=== PATIENT | female | born 1970 | race Caucasian/White ===

== ENCOUNTER 2017-09-09 23:16 | Emergency (ER) | payer MEDICAID ==
[~2017-09-09] VITALS: Ht 167.6 cm; Wt 60.0 kg
[~2017-09-09 23:16] MED LIST: BACDS PO; CEPH-357 PO; NO HOME MEDS; PHEN-873 PO
[2017-09-10] MEDS ORDERED: ondansetron/PF 4mg/2ml inj IV ONE (00:20)
[2017-09-10] MEDS ORDERED: morphine 4 MG/ML inj SYRINge IV ONE (00:20)
[2017-09-10 00:33] LABS: CLARITY,URINE CLOUDY (Clear); COLOR,URINE YELLOW (Yellow); GLUCOSE, URINE NEGATIVE (Neg); KETONES,URINE TRACE mg/dl (Neg); LEUKOCYTE ESTERASE ,URINE TRACE (Neg); NITRITES, URINE POSITIVE (Neg); OCCULT BLOOD,URINE SMALL (Neg); PROTEIN,URINE TRACE mg/dl (Neg)
[2017-09-10 00:35] LABS: UA COLLECTION TYPE CLN CATCH MIDSTREAM
[2017-09-10 00:41] LABS: BACTERIA,URINE 4+ /HPF (Neg); SQUAMOUS EPITHELIAL CELL,UR FEW /LPF (FEW)
[2017-09-10 00:42] LABS: MUCUS STRANDS MODERATE /LPF (Neg)
[2017-09-10 00:44] LABS: URINE AMPHETAMINE SCREEN POSITIVE (Neg); URINE BARBITUATE SCREEN NEGATIVE (Neg); URINE BENZODIAZEPINES SCREEN NEGATIVE (Neg); URINE CANNABINOID SCREEN NEGATIVE (Neg); URINE COCAINE SCREEN NEGATIVE (Neg); URINE METHADONE SCREEN NEGATIVE (Neg); URINE OPIATE SCREEN NEGATIVE (Neg); URINE PHENCYCLIDINE SCREEN NEGATIVE (Neg)
[2017-09-10 01:00] VITALS: BP 137/108
[2017-09-10 01:25] LABS: BASOPHILS # (AUTO) 0.1 X10'3 (0-0.2); BASOPHILS % (AUTO) 0.9 % (0-1); EOSINOPHILS # (AUTO) 0.1 X10'3 (0-0.9); EOSINOPHILS % (AUTO) 0.9 % (0-6); HEMATOCRIT 45.3 % (35.0-45.0); HEMOGLOBIN 14.5 g/dl (12.0-16.0); LYMPHOCYTES # (AUTO) 1.7 X10'3 (1.1-4.8); LYMPHOCYTES % (AUTO) 20.5 % (21-51); MEAN CORPUSCULAR HEMOGLOBIN 31.2 PG (27.0-31.0); MEAN CORPUSCULAR HGB CONC 32.1 % (33.0-36.5); MEAN CORPUSCULAR VOLUME 97.2 FL (78-98); MEAN PLATELET VOLUME 8.8 FL (7.4-10.4); MONOCYTES # (AUTO) 0.6 X10'3 (0-0.9); MONOCYTES % (AUTO) 7.7 % (2-12); NEUTROPHILS # (AUTO) 5.9 X10'3 (1.8-7.7); PLATELET COUNT 172 X10'3 (140-440); RED BLOOD COUNT 4.66 X10'6 (4.20-5.60); RED CELL DISTRIBUTION WIDTH 13.3 % (11.5-14.5); WHITE BLOOD COUNT 8.4 X10'3 (4.5-11.0)
[2017-09-10 01:36] LABS: INR 1.1 INR; PARTIAL THROMBOPLASTIN TIME 25 SECONDS (22-32); PROTHROMBIN TIME 11.4 SECONDS (9.0-12.0)
[2017-09-10 01:44] LABS: ALANINE AMINOTRANSFERASE 141 U/L (12-78); ALBUMIN 3.5 G/DL (3.4-5.0); ALBUMIN/GLOBULIN RATIO 0.8 (1.1-1.5); ALKALINE PHOSPHATASE 150 IU/L (46-116); ANION GAP 13 (8-16); ASPARTATE AMINO TRANSFERASE 214 U/L (10-37); BILIRUBIN,TOTAL 1.4 MG/DL (0.1-1.0); BLOOD UREA NITROGEN 16 MG/DL (7-18); BUN/CREATININE RATIO 16.8 (6.6-38.0); CALCIUM 9.5 MG/DL (8.5-10.1); CHLORIDE 104 MMOL/L (99-107); CREATINE KINASE 556 U/L (26-192); CREATININE 0.95 MG/DL (0.40-0.90); ETHANOL 0.103 GM/DL (0.0-0.010); GLUCOSE 146 MG/DL (70-104); LIPASE 329 U/L (73-393); SODIUM 146 MMOL/L (135-145); TOTAL CARBON DIOXIDE 28.9 MMOL/L (24-32); TROPONIN I < 0.04 NG/ML (0.0-0.05); eGFR 63 ML/MIN
[2017-09-10 01:54] LABS: POTASSIUM 2.3 MMOL/L (3.5-5.1)
[2017-09-10] MEDS ORDERED: potassium Cl 20 mEq/100mL bag IV ONE (01:55)
[2017-09-10] MEDS ORDERED: potassium Cl 10 mEq/100mL bag IV SCH (02:05)
[2017-09-10] MEDS ORDERED: CefTRIAXone/D5W-Rocephin 1gm 50 ML IV ONE (02:10)
[2017-09-10] MEDS ORDERED: LIDOcaine 1.5% w/epinephrine 1:200,000 5ml ampul IJ ONE (02:55)
[2017-09-10] MEDS ORDERED: lidocaine 1.5% w/epinephrine 1:200,000 10ml vial MPF IJ ONE (02:55)
[2017-09-10] MEDS ORDERED: potass W/LIDOcaine 10mEq/100ml 100 ML IV SCH (03:15)
== END 2017-09-10 04:51 | disposition short-term general hospital (02) ==
LOC: ER 23:17
DX: S02.32XA Fracture of orbital floor, left side, initial encounter for closed fracture (principal); S02.40FA Zygomatic fracture, left side, initial encounter for closed fracture; S02.40DA Maxillary fracture, left side, initial encounter for closed fracture; S01.412A Laceration without foreign body of left cheek and temporomandibular area, initial encounter; E87.6 Hypokalemia; F10.129 Alcohol abuse with intoxication, unspecified; Z86.14 Personal history of Methicillin resistant Staphylococcus aureus infection; Z88.6 Allergy status to analgesic agent; Z88.8 Allergy status to other drugs, medicaments and biological substances; F15.10 Other stimulant abuse, uncomplicated; Z56.0 Unemployment, unspecified; Y04.2XXA Assault by strike against or bumped into by another person, initial encounter
CPT/HCPCS: 12011; 36415; 70450; 70486; 71045; 72125; 80053; 80305; 80320; 81001; 82550; 83690; 84484; 85025; 85610; 85730; 87077; 87088; 87186; 96365; 96366; 96368; 96375; 99285; J0696; J2270; J2405; J3490; J3480

== ENCOUNTER 2019-05-18 14:41 | Emergency (ER) | payer MEDICAID ==
[~2019-05-18] VITALS: Ht 154.9 cm; Wt 72.7 kg
[~2019-05-18 14:41] MED LIST changes: +PHEN-786 PO; -PHEN-873 PO
== END 2019-05-18 16:33 | disposition home or self-care (01) ==
LOC: ER 14:42
DX: S31.41XD Laceration without foreign body of vagina and vulva, subsequent encounter (principal); F15.90 Other stimulant use, unspecified, uncomplicated; F10.99 Alcohol use, unspecified with unspecified alcohol-induced disorder; Z90.710 Acquired absence of both cervix and uterus; Z86.14 Personal history of Methicillin resistant Staphylococcus aureus infection; Z56.0 Unemployment, unspecified; Z88.6 Allergy status to analgesic agent; Z88.8 Allergy status to other drugs, medicaments and biological substances; Z79.899 Other long term (current) drug therapy; W19.XXXD Unspecified fall, subsequent encounter; Y90.9 Presence of alcohol in blood, level not specified
CPT/HCPCS: 99281; 99283

== ENCOUNTER 2020-04-17 15:51 | Emergency (ER) | payer MEDICAID ==
[~2020-04-17] VITALS: Ht 160 cm; Wt 85.9 kg
[2020-04-17 16:50] LABS: BASOPHILS # (AUTO) 0.1 X10'3 (0-0.2); BASOPHILS % (AUTO) 1.6 % (0-1); EOSINOPHILS # (AUTO) 0.1 X10'3 (0-0.9); EOSINOPHILS % (AUTO) 1.8 % (0-6); HEMOGLOBIN 8.3 g/dl (12.0-16.0); LYMPHOCYTES # (AUTO) 1.7 X10'3 (1.1-4.8); LYMPHOCYTES % (AUTO) 28.8 % (21-51); MEAN CORPUSCULAR HEMOGLOBIN 30.2 PG (27.0-31.0); MEAN CORPUSCULAR HGB CONC 31.9 g/dL (33.0-36.5); MEAN CORPUSCULAR VOLUME 94.7 FL (78-98); MEAN PLATELET VOLUME 8.7 FL (7.4-10.4); MONOCYTES # (AUTO) 0.6 X10'3 (0-0.9); MONOCYTES % (AUTO) 10.7 % (2-12); NEUTROPHILS # (AUTO) 3.4 X10'3 (1.8-7.7); NEUTROPHILS % (AUTO) 57.1 % (42-75); PLATELET COUNT 120 X10'3 (140-440); RED BLOOD COUNT 2.75 X10'6 (4.20-5.60); RED CELL DISTRIBUTION WIDTH 17.4 % (11.5-14.5); WHITE BLOOD COUNT 5.9 X10'3 (4.5-11.0)
[2020-04-17 16:59] LABS: PARTIAL THROMBOPLASTIN TIME 29 SECONDS (22-32)
[2020-04-17 17:00] LABS: ALANINE AMINOTRANSFERASE 62 U/L (12-78); ALBUMIN 2.3 G/DL (3.4-5.0); ALKALINE PHOSPHATASE 188 IU/L (46-116); ANION GAP 6 (8-16); ASPARTATE AMINO TRANSFERASE 102 U/L (10-37); BLOOD UREA NITROGEN 7 MG/DL (7-18); BUN/CREATININE RATIO 6.9 (6.6-38.0); CHLORIDE 104 MMOL/L (99-107); CREATININE 1.01 MG/DL (0.40-0.90); POTASSIUM 3.2 MMOL/L (3.5-5.1); SODIUM 142 MMOL/L (135-145); TOTAL CARBON DIOXIDE 32.5 MMOL/L (24-32); eGFR 58 ML/MIN
[2020-04-17 17:07] LABS: AMYLASE 34 U/L (25-115); LIPASE 317 U/L (73-393)
[2020-04-17 17:08] LABS: ALBUMIN/GLOBULIN RATIO 0.5 (1.1-1.5); GLUCOSE 108 MG/DL (70-104); TOTAL PROTEIN 7.2 G/DL (6.4-8.2)
[2020-04-17 17:41] LABS: URINE HCG NEGATIVE (NEG)
[2020-04-17 17:43] LABS: CLARITY,URINE CLOUDY (Clear); GLUCOSE, URINE NEGATIVE (Neg); KETONES,URINE NEGATIVE (Neg); LEUKOCYTE ESTERASE ,URINE SMALL (Neg); NITRITES, URINE POSITIVE (Neg); OCCULT BLOOD,URINE NEGATIVE (Neg); PROTEIN,URINE NEGATIVE (Neg); UROBILINOGEN,URINE >=8.0 E.U/dL (0.2-1.0)
[2020-04-17 17:53] LABS: COLOR,URINE DARK YELLOW (Yellow); UA COLLECTION TYPE CLN CATCH MIDSTREAM
[2020-04-17 17:56] LABS: BACTERIA,URINE 4+ /HPF (Neg); RBC,URINE 0-2 /HPF (0-2); SQUAMOUS EPITHELIAL CELL,UR MODERATE /LPF (FEW); WBC,URINE 50-100 /HPF (0-4)
[2020-04-17 17:57] LABS: WBC CLUMPS,URINE MANY /HPF (NEGATIVE)
[2020-04-17 18:17] LABS: MAGNESIUM 1.7 MG/DL (1.5-2.4)
[2020-04-17] MEDS ORDERED: CefTRIAXone 1000mg IM Kit (w/lidocaine diluent) IM ONE (18:20)
[2020-04-17 18:35] LABS: PHOSPHORUS 3.1 MG/DL (2.3-4.5)
[2020-04-17] MEDS ORDERED: CIPR-230 PO (20:09)
[2020-04-17] MEDS ORDERED: POTA20TA19 PO (20:12)
[2020-04-17 20:33] VITALS: BP 134/78
== END 2020-04-17 20:39 | disposition home or self-care (01) ==
LOC: ER 15:52
DX: K70.31 Alcoholic cirrhosis of liver with ascites (principal); N39.0 Urinary tract infection, site not specified; K74.60 Unspecified cirrhosis of liver; F15.10 Other stimulant abuse, uncomplicated; Z56.0 Unemployment, unspecified; Z87.448 Personal history of other diseases of urinary system
CPT/HCPCS: 36415; 71045; 76700; 80053; 81001; 81025; 82150; 83690; 83735; 83880; 84100; 84484; 85025; 85610; 85730; 87077; 87088; 87186; 93005; 96372; 99285; J0696; 74176

== ENCOUNTER 2020-05-02 07:53 | Day surgery (SDC) | payer MEDICAID ==
[~2020-05-02] VITALS: Ht 160 cm; Wt 88.7 kg
[2020-05-02] MEDS ORDERED: albumin 25% 100mL bottle x 1 IV PRN (08:15)
[2020-05-02] MEDS ORDERED: SPIR25TA5 PO (08:20)
[2020-05-02 08:33] VITALS: BP 138/80
== END 2020-05-02 10:01 | disposition home or self-care (01) ==
LOC: SSTAY O 07:53
PROVIDERS: ATTEND Radiology Diagnostic Radiology
DX: R18.8 Other ascites (principal); K74.60 Unspecified cirrhosis of liver; Z72.89 Other problems related to lifestyle; Z90.710 Acquired absence of both cervix and uterus; F15.90 Other stimulant use, unspecified, uncomplicated; Z88.8 Allergy status to other drugs, medicaments and biological substances; Z79.899 Other long term (current) drug therapy
CPT/HCPCS: 76705

== ENCOUNTER 2020-08-07 16:32 | Inpatient (IN) | payer MEDICAID ==
[~2020-08-07] VITALS: Ht 157.5 cm; Wt 75.9 kg
[~2020-08-07 16:32] MED LIST changes: -BACDS PO; -PHEN-786 PO; +SPIR25TA5 PO
[2020-08-07] MEDS ORDERED: normal saline 1000ML IV soln IV ONE (17:25)
[2020-08-07] MEDS ORDERED: vancomycin/NS 1 GM ADD-VANTAGE 250 ML IV ONE (17:25)
[2020-08-07] MEDS ORDERED: piperacillin/tazo 3.375gm/50ml 50 ML IV ONE (17:25)
[2020-08-07 17:42] LABS: BASOPHILS % (AUTO) 0.4 % (0-1); EOSINOPHILS # (AUTO) 0.1 X10'3 (0-0.9); EOSINOPHILS % (AUTO) 1.4 % (0-6); HEMATOCRIT 28.7 % (35.0-45.0); HEMOGLOBIN 8.8 g/dl (12.0-16.0); LYMPHOCYTES # (AUTO) 1.1 X10'3 (1.1-4.8); LYMPHOCYTES % (AUTO) 13.7 % (21-51); MEAN CORPUSCULAR HGB CONC 30.8 g/dL (33.0-36.5); MEAN CORPUSCULAR VOLUME 84.5 FL (78-98); MEAN PLATELET VOLUME 9.3 FL (7.4-10.4); MONOCYTES # (AUTO) 0.8 X10'3 (0-0.9); MONOCYTES % (AUTO) 9.7 % (2-12); NEUTROPHILS # (AUTO) 6.2 X10'3 (1.8-7.7); NEUTROPHILS % (AUTO) 74.8 % (42-75); PLATELET COUNT 112 X10'3 (140-440); RED BLOOD COUNT 3.39 X10'6 (4.20-5.60); RED CELL DISTRIBUTION WIDTH 22.5 % (11.5-14.5); WHITE BLOOD COUNT 8.3 X10'3 (4.5-11.0)
[2020-08-07 17:58] LABS: ALANINE AMINOTRANSFERASE 39 U/L (12-78); ALBUMIN/GLOBULIN RATIO 0.4 (1.1-1.5); ALKALINE PHOSPHATASE 119 IU/L (46-116); ANION GAP 11 (8-16); ASPARTATE AMINO TRANSFERASE 77 U/L (10-37); BLOOD UREA NITROGEN 21 MG/DL (7-18); BUN/CREATININE RATIO 17.2 (6.6-38.0); C-REACTIVE PROTEIN 12.38 MG/DL (0.0-0.5); CALCIUM 8.1 MG/DL (8.5-10.1); CHLORIDE 98 MMOL/L (99-107); CREATININE 1.22 MG/DL (0.40-0.90); ETHANOL 0.185 GM/DL (0.0-0.010); MAGNESIUM 1.4 MG/DL (1.5-2.4); SODIUM 135 MMOL/L (135-145); TOTAL CARBON DIOXIDE 26.4 MMOL/L (24-32); TOTAL PROTEIN 6.8 G/DL (6.4-8.2); eGFR 46 ML/MIN
[2020-08-07 18:05] LABS: GLUCOSE 148 MG/DL (70-104); POTASSIUM 2.4 MMOL/L (3.5-5.1)
[2020-08-07] MEDS ORDERED: potassium Cl 20 mEq SR tablet PO STA (18:05)
[2020-08-07] MEDS ORDERED: potassium Cl 10 mEq/100mL bag IV ONE (18:05)
[2020-08-07] MEDS ORDERED: iohexol 300mg/ml 100ml inj. ONE (18:14)
--- NOTE | 2020-08-07 18:15 | NUR ---
Pt taken to CT
[2020-08-07 18:29] LABS: ANISOCYTOSIS 3+; PLATELET ESTIMATE DECREASED; TOTAL CELLS COUNTED 100
[2020-08-07 18:30] LABS: HYPOCHROMASIA 1+; POLYCHROMASIA FEW; SCHISTOCYTES FEW
[2020-08-07 18:31] LABS: BURR CELLS FEW
[2020-08-07 18:53] LABS: GLUCOSE, URINE NEGATIVE (Neg); KETONES,URINE TRACE mg/dl (Neg); LEUKOCYTE ESTERASE ,URINE NEGATIVE (Neg); NITRITES, URINE NEGATIVE (Neg); OCCULT BLOOD,URINE NEGATIVE (Neg); PH,URINE 5.5 (4.8-8.0); PROTEIN,URINE NEGATIVE (Neg)
[2020-08-07 18:59] LABS: CLARITY,URINE SLIGHTLY CLOUDY (Clear); COLOR,URINE DARK YELLOW (Yellow); UA COLLECTION TYPE CLN CATCH MIDSTREAM
[2020-08-07 19:05] LABS: BACTERIA,URINE FEW /HPF (Neg); RBC,URINE NONE SEEN /HPF (0-2); SQUAMOUS EPITHELIAL CELL,UR MANY /LPF (FEW); WBC,URINE 0-4 /HPF (0-4)
[2020-08-07 19:06] LABS: TRANSITIONAL EPI CELLS,URINE FEW /HPF
[2020-08-07 19:07] LABS: CELLULAR CAST 0-4 /LPF (NEGATIVE); URINE AMPHETAMINE SCREEN POSITIVE (Neg); URINE BARBITUATE SCREEN NEGATIVE (Neg); URINE BENZODIAZEPINES SCREEN NEGATIVE (Neg); URINE CANNABINOID SCREEN NEGATIVE (Neg); URINE COCAINE SCREEN NEGATIVE (Neg); URINE METHADONE SCREEN NEGATIVE (Neg); URINE OPIATE SCREEN NEGATIVE (Neg); URINE PHENCYCLIDINE SCREEN NEGATIVE (Neg)
[2020-08-07] MEDS ORDERED: morphine 4 MG/ML inj SYRINge IV ONE (20:10)
[2020-08-07] MEDS ORDERED: thiamine 100mg/ml 2ml inj. IV ONE (20:25)
[2020-08-07] MEDS ORDERED: magnesium 4gm in 100ml NS 100 ML IV PRN (20:25)
[2020-08-07] MEDS ORDERED: potassium Cl 40MEQ/1/2NS 520ml 520 ML IV PRN ×2 (20:25)
[2020-08-07] MEDS ORDERED: mag hydrox/Alum hydrox/simeth 30ml oral suspension PO PRN (20:25)
[2020-08-07] MEDS ORDERED: dextrose 50%-water 50ml dispensing syringe IV PRN (20:25)
[2020-08-07] MEDS ORDERED: bisacodyl 10mg suppository rectal RC PRN (20:25)
[2020-08-07] MEDS ORDERED: haloperidol 5mg tablet PO PRN (20:25)
[2020-08-07] MEDS ORDERED: magnesium 2GM in 50ml NS 50 ML IV PRN (20:25)
[2020-08-07] MEDS ORDERED: magnesium hydroxide 30ml (MOM) UD suspension PO PRN (20:25)
[2020-08-07] MEDS ORDERED: ondansetron/PF 4mg/2ml inj IV PRN (20:25)
[2020-08-07] MEDS ORDERED: DOPamine 400mg/D5W 250ml 250 ML IV SCH ×2 (20:35→20:38)
[2020-08-07 20:57] LABS: HEMOGLOBIN A1C 4.5 % (4.5-6.2)
[2020-08-07 21:05] LABS: LIPASE 334 U/L (73-393)
[2020-08-07 21:06] LABS: PHOSPHORUS 1.1 MG/DL (2.3-4.5)
[2020-08-07] MEDS: potassium Cl 20 mEq SR tablet PO PRN (22:32)
[2020-08-08] MEDS: piperacillin/tazo 3.375gm/50ml 50 ML IV SCH ×3 (02:33→18:27)
[2020-08-08 03:07] LABS: BASOPHILS # (AUTO) 0.1 X10'3 (0-0.2); BASOPHILS % (AUTO) 0.6 % (0-1); EOSINOPHILS % (AUTO) 0.3 % (0-6); HEMOGLOBIN 8.5 g/dl (12.0-16.0); MEAN CORPUSCULAR HEMOGLOBIN 26.2 PG (27.0-31.0); MEAN CORPUSCULAR HGB CONC 31.4 g/dL (33.0-36.5); MEAN CORPUSCULAR VOLUME 83.4 FL (78-98); MEAN PLATELET VOLUME 9.7 FL (7.4-10.4); MONOCYTES % (AUTO) 11.9 % (2-12); NEUTROPHILS # (AUTO) 6.3 X10'3 (1.8-7.7); NEUTROPHILS % (AUTO) 75.2 % (42-75); PLATELET COUNT 101 X10'3 (140-440); RED BLOOD COUNT 3.23 X10'6 (4.20-5.60); RED CELL DISTRIBUTION WIDTH 22.1 % (11.5-14.5); WHITE BLOOD COUNT 8.4 X10'3 (4.5-11.0)
[2020-08-08 03:16] LABS: ALANINE AMINOTRANSFERASE 37 U/L (12-78); ALBUMIN 1.9 G/DL (3.4-5.0); ALBUMIN/GLOBULIN RATIO 0.4 (1.1-1.5); ALKALINE PHOSPHATASE 121 IU/L (46-116); ANION GAP 5 (8-16); ASPARTATE AMINO TRANSFERASE 74 U/L (10-37); BLOOD UREA NITROGEN 18 MG/DL (7-18); BUN/CREATININE RATIO 17.6 (6.6-38.0); CALCIUM 7.4 MG/DL (8.5-10.1); CHLORIDE 102 MMOL/L (99-107); CREATININE 1.02 MG/DL (0.40-0.90); MAGNESIUM 1.2 MG/DL (1.5-2.4); SODIUM 135 MMOL/L (135-145); TOTAL CARBON DIOXIDE 28.2 MMOL/L (24-32); TOTAL PROTEIN 6.4 G/DL (6.4-8.2); eGFR 57 ML/MIN
[2020-08-08 03:18] LABS: GLUCOSE 120 MG/DL (70-104); POTASSIUM 2.9 MMOL/L (3.5-5.1)
[2020-08-08 05:26] LABS: ANISOCYTOSIS 3+; PLATELET ESTIMATE DECREASED
[2020-08-08 05:27] LABS: ELLIPTOCYTES FEW
[2020-08-08 08:00] VITALS: BP 142/96
[2020-08-08] MEDS: nicotine 21mg patch - 24 hr TD SCH (08:28)
[2020-08-08] MEDS: LORazepam 1 MG tablet PO PRN (08:28)
[2020-08-08] MEDS: vancomycin/NS 1 GM ADD-VANTAGE 250 ML IV SCH ×2 (08:28→19:08)
[2020-08-08] MEDS: potassium Cl 20 mEq SR tablet PO PRN ×3 (08:29→16:08)
[2020-08-08] MEDS: pantoprazole 40mg Tablet.DR PO SCH (08:29)
[2020-08-08] MEDS: magnesium Cl slow-release 64mg tablet PO PRN (08:29)
[2020-08-08] MEDS: K and/or MAG REPLACEMENT MC SCH (08:35)
--- NOTE | 2020-08-08 09:12 | NUR ---
Dr. Gifford at bedside with patient and nurse. New orders NS @100ml/hr, DC Dry tray and DC FR, Heart Healthy diet, and wound care consult. Will continue to monitor.
[2020-08-08] MEDS: normal saline 1000ml 1,000 ML IV SCH ×2 (09:15→19:09)
[2020-08-08 11:00] VITALS: BP 157/83
--- NOTE | 2020-08-08 13:06 | NUR ---
SUZIE BLAKE RM 5831P- lab called to report from blood cx, Gram + cocci,pairs,chains, from aerobic bottle
[2020-08-08 15:00] VITALS: BP 112/88
[2020-08-08 18:00] VITALS: BP 142/86
--- NOTE | 2020-08-08 18:14 | NUR ---
Patient in room PCU 3024. I have received report from Dash SANCHEZ and had the opportunity to ask questions and assume patient care.
[2020-08-08] MEDS ORDERED: vancomycin/NS 1 GM ADD-VANTAGE 250 ML IV SCH (19:00)
[2020-08-08] MEDS: lactobacillus rhamnosus 10,000 MMU CELLS/CAPSULE PO SCH (19:08)
[2020-08-08 22:00] VITALS: BP 143/86
[2020-08-09 02:00] VITALS: BP 141/86
[2020-08-09] MEDS: piperacillin/tazo 3.375gm/50ml 50 ML IV SCH ×3 (03:49→16:01)
[2020-08-09] MEDS: normal saline 1000ml 1,000 ML IV SCH ×2 (05:15→14:24)
--- NOTE | 2020-08-09 06:24 | NUR ---
Problems reprioritized. Patient report given, questions answered & plan of care reviewed with Candida SANCHEZ.
--- NOTE | 2020-08-09 06:38 | NUR ---
Patient in room U 3024. I have received report from Darrin SANCHEZ Traveler and had the opportunity to ask questions and assume patient care.
--- NOTE | 2020-08-09 06:38 | NUR ---
Patient in room PCU 3024. I have received report from DANIEL Clifford and had the opportunity to ask questions and assume patient care.
[2020-08-09 07:00] VITALS: BP 151/93
[2020-08-09] MEDS ORDERED: VANCOMYCIN LEVEL IV ONE (07:30)
[2020-08-09] MEDS: lactobacillus rhamnosus 10,000 MMU CELLS/CAPSULE PO SCH ×2 (07:52→20:00)
[2020-08-09] MEDS: pantoprazole 40mg Tablet.DR PO SCH (07:52)
[2020-08-09] MEDS: vancomycin/NS 1 GM ADD-VANTAGE 250 ML IV SCH (07:53)
[2020-08-09] MEDS: nicotine 21mg patch - 24 hr TD SCH (07:55)
[2020-08-09] MEDS: K and/or MAG REPLACEMENT MC SCH (08:00)
[2020-08-09 08:01] LABS: BASOPHILS # (AUTO) 0.1 X10'3 (0-0.2); BASOPHILS % (AUTO) 0.8 % (0-1); EOSINOPHILS # (AUTO) 0.2 X10'3 (0-0.9); EOSINOPHILS % (AUTO) 2.2 % (0-6); HEMATOCRIT 29.6 % (35.0-45.0); HEMOGLOBIN 9.2 g/dl (12.0-16.0); LYMPHOCYTES # (AUTO) 1.8 X10'3 (1.1-4.8); LYMPHOCYTES % (AUTO) 16.9 % (21-51); MEAN CORPUSCULAR HEMOGLOBIN 25.8 PG (27.0-31.0); MEAN CORPUSCULAR HGB CONC 31.2 g/dL (33.0-36.5); MEAN CORPUSCULAR VOLUME 82.8 FL (78-98); MEAN PLATELET VOLUME 9.2 FL (7.4-10.4); MONOCYTES # (AUTO) 1.8 X10'3 (0-0.9); NEUTROPHILS # (AUTO) 6.5 X10'3 (1.8-7.7); NEUTROPHILS % (AUTO) 63.1 % (42-75); PLATELET COUNT 119 X10'3 (140-440); RED BLOOD COUNT 3.58 X10'6 (4.20-5.60); RED CELL DISTRIBUTION WIDTH 22.3 % (11.5-14.5); WHITE BLOOD COUNT 10.4 X10'3 (4.5-11.0)
[2020-08-09 08:11] LABS: ALANINE AMINOTRANSFERASE 32 U/L (12-78); ALBUMIN 1.9 G/DL (3.4-5.0); ALBUMIN/GLOBULIN RATIO 0.4 (1.1-1.5); ALKALINE PHOSPHATASE 113 IU/L (46-116); ANION GAP 6 (8-16); ASPARTATE AMINO TRANSFERASE 59 U/L (10-37); BILIRUBIN,TOTAL 3.2 MG/DL (0.1-1.0); BLOOD UREA NITROGEN 13 MG/DL (7-18); BUN/CREATININE RATIO 15.3 (6.6-38.0); CALCIUM 7.3 MG/DL (8.5-10.1); CHLORIDE 103 MMOL/L (99-107); CREATININE 0.85 MG/DL (0.40-0.90); POTASSIUM 3.4 MMOL/L (3.5-5.1); SODIUM 137 MMOL/L (135-145); TOTAL CARBON DIOXIDE 28.1 MMOL/L (24-32); TOTAL PROTEIN 6.5 G/DL (6.4-8.2); eGFR 71 ML/MIN
[2020-08-09 08:12] LABS: GLUCOSE 96 MG/DL (70-104); MAGNESIUM 1.3 MG/DL (1.5-2.4); VANCOMYCIN,TROUGH 6.5 UG/ML (6.0-14.0)
[2020-08-09 08:54] LABS: ANISOCYTOSIS 3+; PLATELET ESTIMATE DECREASED; TOTAL CELLS COUNTED 100
[2020-08-09 08:55] LABS: ELLIPTOCYTES 1+; HYPOCHROMASIA 1+; POLYCHROMASIA 1+; TARGET CELLS 1+; TEAR DROP CELLS FEW
--- NOTE | 2020-08-09 10:16 | NUR ---
Dr. Gifford at bedside with pt and nurse. No PT at this time due to leg infection or SCDS. Will replace K, Mg per protocol, Repeat of two blood cultures. Will continue to monitor.
[2020-08-09] MEDS: magnesium Cl slow-release 64mg tablet PO PRN ×2 (10:33→14:23)
[2020-08-09] MEDS: potassium Cl 20 mEq SR tablet PO PRN ×2 (10:33→14:23)
[2020-08-09 11:00] VITALS: BP 135/83
--- NOTE | 2020-08-09 13:10 | NUR ---
Problems reprioritized. Patient report given, questions answered & plan of care reviewed with Vane SANCHEZ.
[2020-08-09] MEDS: LORazepam 1 MG tablet PO PRN (14:23)
[2020-08-09 15:09] VITALS: BP 126/76
[2020-08-09] MEDS: LORazepam 2 mg/ml vial IV PRN (16:13)
[2020-08-09 18:00] VITALS: BP 126/85
--- NOTE | 2020-08-09 18:17 | NUR ---
Patient in room PCU 3024. I have received report from Vane SANCHEZ and had the opportunity to ask questions and assume patient care.
[2020-08-09 22:00] VITALS: BP 129/78
[2020-08-10] MEDS: LORazepam 2 mg/ml vial IV PRN ×3 (00:41→12:22)
[2020-08-10] MEDS: normal saline 1000ml 1,000 ML IV SCH ×2 (00:42→12:25)
[2020-08-10] MEDS: ceFAZolin/D5W- 1GM premix 50 ML IV SCH ×4 (03:04→20:24)
--- NOTE | 2020-08-10 06:52 | NUR ---
Patient in room PCU 3024. I have received report from Darrin SANCHEZ and had the opportunity to ask questions and assume patient care.
[2020-08-10 07:00] VITALS: BP 129/84
[2020-08-10 07:28] LABS: BASOPHILS # (AUTO) 0.1 X10'3 (0-0.2); BASOPHILS % (AUTO) 1.3 % (0-1); EOSINOPHILS # (AUTO) 0.6 X10'3 (0-0.9); EOSINOPHILS % (AUTO) 7.6 % (0-6); HEMATOCRIT 27.1 % (35.0-45.0); HEMOGLOBIN 8.7 g/dl (12.0-16.0); LYMPHOCYTES # (AUTO) 1.5 X10'3 (1.1-4.8); LYMPHOCYTES % (AUTO) 19.1 % (21-51); MEAN CORPUSCULAR HEMOGLOBIN 26.3 PG (27.0-31.0); MEAN CORPUSCULAR HGB CONC 31.9 g/dL (33.0-36.5); MEAN CORPUSCULAR VOLUME 82.5 FL (78-98); MEAN PLATELET VOLUME 8.9 FL (7.4-10.4); MONOCYTES # (AUTO) 1.1 X10'3 (0-0.9); MONOCYTES % (AUTO) 14.5 % (2-12); NEUTROPHILS # (AUTO) 4.5 X10'3 (1.8-7.7); NEUTROPHILS % (AUTO) 57.5 % (42-75); PLATELET COUNT 107 X10'3 (140-440); RED BLOOD COUNT 3.29 X10'6 (4.20-5.60); RED CELL DISTRIBUTION WIDTH 21.8 % (11.5-14.5); WHITE BLOOD COUNT 7.9 X10'3 (4.5-11.0)
[2020-08-10 07:46] LABS: ALANINE AMINOTRANSFERASE 29 U/L (12-78); ALBUMIN 1.6 G/DL (3.4-5.0); ALBUMIN/GLOBULIN RATIO 0.4 (1.1-1.5); ALKALINE PHOSPHATASE 102 IU/L (46-116); ANION GAP 7 (8-16); ASPARTATE AMINO TRANSFERASE 54 U/L (10-37); BILIRUBIN,TOTAL 3.5 MG/DL (0.1-1.0); BLOOD UREA NITROGEN 11 MG/DL (7-18); BUN/CREATININE RATIO 15.7 (6.6-38.0); CALCIUM 7.2 MG/DL (8.5-10.1); CHLORIDE 106 MMOL/L (99-107); GLUCOSE 84 MG/DL (70-104); MAGNESIUM 1.4 MG/DL (1.5-2.4); POTASSIUM 3.3 MMOL/L (3.5-5.1); SODIUM 140 MMOL/L (135-145); TOTAL CARBON DIOXIDE 26.8 MMOL/L (24-32); TOTAL PROTEIN 5.8 G/DL (6.4-8.2); eGFR 88 ML/MIN
[2020-08-10 07:58] LABS: ANISOCYTOSIS 3+; MICROCYTOSIS 1+; PLATELET ESTIMATE DECREASED; POIKILOCYTOSIS FEW; POLYCHROMASIA FEW
[2020-08-10] MEDS: nicotine 21mg patch - 24 hr TD SCH (08:00)
[2020-08-10] MEDS: magnesium Cl slow-release 64mg tablet PO PRN ×2 (08:15→20:33)
[2020-08-10] MEDS: lactobacillus rhamnosus 10,000 MMU CELLS/CAPSULE PO SCH ×2 (08:15→20:33)
[2020-08-10] MEDS: potassium Cl 20 mEq SR tablet PO PRN (08:15)
[2020-08-10] MEDS: pantoprazole 40mg Tablet.DR PO SCH (08:16)
[2020-08-10] MEDS: K and/or MAG REPLACEMENT MC SCH (08:16)
[2020-08-10 08:40] LABS: HIV ANTIBODY 1&2 RAPID NON-REACTIVE (Neg)
--- NOTE | 2020-08-10 09:46 | NUR ---
Dr. Gifford at bedside with patient and nurse. Patient expressing need for more medications to be sedated or she wants to get HIGH (meth). Pt is requesting sister to come visit. No New orders at this time, legs are improving. MD projects home on Wed or Wednesday when infection is under control. Will continue to monitor.
[2020-08-10 11:00] VITALS: BP 121/79
--- NOTE | 2020-08-10 11:37 | NUR ---
Paged RT \ Re: Sneha Rowan, RM 2839L pt requesting treatment. RT was ordered, Thank you Candida SANCHEZ [phone]
--- NOTE | 2020-08-10 12:49 | NUR ---
Paged Dr. Gifford promotional table spacer PAGER ID: [phone] MESSAGE: Re: Sneha Jim RM 3020X. Pt combative, may I may Haldol to IM? Please ADVISE Candida SANCHEZ [id number] responded New order Haldol 5mg IM Q8
[2020-08-10] MEDS: haloperidol lactate 5mg/ml inj IM PRN (12:59)
--- NOTE | 2020-08-10 13:19 | NUR ---
Paged Dr. Gifford PAGER ID: [phone] MESSAGE: : Re: Sneha Jim RM 4084X. Pt appears having labored breathing and distended abd. May we get an ABG and RT? Please ADVISE Candida SANCHEZ [phone]
--- NOTE | 2020-08-10 13:51 | NUR ---
Dr. Gifford called in regards to page. New orders 60 NOW of Lasix and then 40 lasix BID, DC fluids, patients edema in all extremities. RT eval and ABG Stat. Will continue to monitor.
[2020-08-10] MEDS ORDERED: furosemide 10 MG/1 ML 10ml inj IV ONE (13:55)
[2020-08-10 14:16] LABS: ABG BASE EXCESS 2.7 mmol/L (-2.0-2.0); ABG HCO3 26.5 mmol/L (22.0-26.0); ABG PCO2 (T) 37.7 mmHg (32.0-45.0); ABG PO2 (T) 65.9 mmHg (75.0-100.0); ALLEN'S TEST POSITIVE; FCOHb 1.2 % (0.0-3.9); FMetHb 0.1 % (0.0-1.5); FO2Hb 91.8 % (94-97); TOTAL HEMOGLOBIN 9.8 G/dl (12.0-16.0)
--- NOTE | 2020-08-10 14:30 | NUR ---
Dr. Caldwell Regarding ABG PAGER ID: [phone] MESSAGE: Re: Sneha Rowan room 3024B. Patient ABG has resulted, RT has placed pt on 2 L NC. May we get a chest x-ray? Thank you, Mitra [phone]
[2020-08-10 15:00] VITALS: BP 115/67
[2020-08-10] MEDS ORDERED: magnesium 4gm in 100ml NS 100 ML IV PRN (15:40)
[2020-08-10] MEDS ORDERED: potassium Cl 40MEQ/1/2NS 520ml 520 ML IV PRN (15:40)
--- NOTE | 2020-08-10 17:36 | NUR ---
Paged Pharmacy due to patient sedative still and sleeping. Please send IV Potassium 40MEQ/520 NS for Pot level for 3.3 thank you!!!
--- NOTE | 2020-08-10 17:42 | NUR ---
Paged Dr. Gifford to advise PAGER ID: [phone] MESSAGE: Re: Sneha Rowan RM 6132E. FYI pt CXR results are in. Thank you Candida SANCHEZ [phone]
[2020-08-10 18:00] VITALS: BP 114/72
--- NOTE | 2020-08-10 18:07 | NUR ---
Problems reprioritized. Patient report given, questions answered & plan of care reviewed with Prudy RN.
[2020-08-10] MEDS ORDERED: K and/or MAG REPLACEMENT MC SCH (20:00)
[2020-08-10] MEDS: furosemide 40mg/4ml inj IV SCH (20:38)
[2020-08-10 22:00] VITALS: BP 106/72
[2020-08-11] MEDS: ceFAZolin/D5W- 1GM premix 50 ML IV SCH ×4 (02:17→19:50)
[2020-08-11 06:30] VITALS: BP 110/64
--- NOTE | 2020-08-11 06:31 | NUR ---
Problems reprioritized. Patient report given, questions answered & plan of care reviewed with JAIME SANCHEZ.
--- NOTE | 2020-08-11 06:34 | NUR ---
Patient in room PCU 3024. I have received report from Jessenia SANCHEZ and had the opportunity to ask questions and assume patient care.
[2020-08-11 06:53] LABS: BASOPHILS # (AUTO) 0.1 X10'3 (0-0.2); BASOPHILS % (AUTO) 1.4 % (0-1); EOSINOPHILS # (AUTO) 0.6 X10'3 (0-0.9); EOSINOPHILS % (AUTO) 9.1 % (0-6); HEMATOCRIT 26.7 % (35.0-45.0); HEMOGLOBIN 8.5 g/dl (12.0-16.0); LYMPHOCYTES # (AUTO) 1.5 X10'3 (1.1-4.8); MEAN CORPUSCULAR HEMOGLOBIN 26.4 PG (27.0-31.0); MEAN CORPUSCULAR HGB CONC 31.9 g/dL (33.0-36.5); MEAN CORPUSCULAR VOLUME 82.7 FL (78-98); MEAN PLATELET VOLUME 9.1 FL (7.4-10.4); MONOCYTES # (AUTO) 1.1 X10'3 (0-0.9); MONOCYTES % (AUTO) 16.3 % (2-12); NEUTROPHILS # (AUTO) 3.4 X10'3 (1.8-7.7); NEUTROPHILS % (AUTO) 51.2 % (42-75); PLATELET COUNT 119 X10'3 (140-440); RED BLOOD COUNT 3.22 X10'6 (4.20-5.60); RED CELL DISTRIBUTION WIDTH 21.9 % (11.5-14.5); WHITE BLOOD COUNT 6.7 X10'3 (4.5-11.0)
[2020-08-11 07:00] LABS: ALANINE AMINOTRANSFERASE 31 U/L (12-78); ALBUMIN 1.6 G/DL (3.4-5.0); ALBUMIN/GLOBULIN RATIO 0.4 (1.1-1.5); ALKALINE PHOSPHATASE 99 IU/L (46-116); ANION GAP 9 (8-16); ASPARTATE AMINO TRANSFERASE 59 U/L (10-37); BILIRUBIN,TOTAL 3.5 MG/DL (0.1-1.0); BLOOD UREA NITROGEN 10 MG/DL (7-18); BUN/CREATININE RATIO 13.2 (6.6-38.0); CALCIUM 7.1 MG/DL (8.5-10.1); CHLORIDE 106 MMOL/L (99-107); CREATININE 0.76 MG/DL (0.40-0.90); GLUCOSE 83 MG/DL (70-104); MAGNESIUM 1.5 MG/DL (1.5-2.4); POTASSIUM 3.4 MMOL/L (3.5-5.1); SODIUM 142 MMOL/L (135-145); TOTAL CARBON DIOXIDE 27.3 MMOL/L (24-32); TOTAL PROTEIN 5.9 G/DL (6.4-8.2); eGFR 80 ML/MIN
[2020-08-11] MEDS ORDERED: VANCOMYCIN LEVEL IV ONE (07:30)
[2020-08-11] MEDS: furosemide 40mg/4ml inj IV SCH ×2 (07:45→19:51)
[2020-08-11] MEDS: nicotine 21mg patch - 24 hr TD SCH (07:45)
[2020-08-11 07:50] LABS: ANISOCYTOSIS 3+; HYPOCHROMASIA 1+; PLATELET ESTIMATE DECREASED; POLYCHROMASIA 1+; TOTAL CELLS COUNTED 100
[2020-08-11 07:51] LABS: ELLIPTOCYTES FEW; TARGET CELLS FEW; TEAR DROP CELLS FEW
[2020-08-11 07:52] LABS: LARGE PLATELETS FEW
[2020-08-11] MEDS: pantoprazole 40mg Tablet.DR PO SCH (07:58)
[2020-08-11] MEDS: lactobacillus rhamnosus 10,000 MMU CELLS/CAPSULE PO SCH ×2 (07:58→19:51)
[2020-08-11] MEDS: K and/or MAG REPLACEMENT MC SCH (08:00)
[2020-08-11] MEDS ORDERED: potassium Cl 40MEQ/1/2NS 520ml 520 ML IV PRN (09:30)
[2020-08-11] MEDS ORDERED: potassium Cl 20 mEq SR tablet PO PRN (09:30)
--- NOTE | 2020-08-11 10:54 | NUR ---
Patient complaining of too much pain at her IV site after I started her on IV KCL. I stopped the infusion per her request. She is more alert now so I will try PO KCL instead.
[2020-08-11 11:00] VITALS: BP 116/66
[2020-08-11] MEDS: potassium Cl 20 mEq SR tablet PO PRN (11:02)
[2020-08-11 12:14] LABS: HBSAG SCREEN Negative (Negative); HEP A AB, IGM Negative (Negative); HEPATITIS C ANTIBODY >11.0 s/co ratio (0.0-0.9)
[2020-08-11 15:00] VITALS: BP 118/67
[2020-08-11 18:00] VITALS: BP 122/78
--- NOTE | 2020-08-11 18:11 | NUR ---
Patient in room PCU 3024. I have received report from DANIEL Landaverde and had the opportunity to ask questions and assume patient care. Patient resting comfortably in bed.
--- NOTE | 2020-08-11 18:31 | NUR ---
Problems reprioritized. Patient report given, questions answered & plan of care reviewed with Betsy SANCHEZ.
[2020-08-11] MEDS: haloperidol lactate 5mg/ml inj IM PRN (19:51)
[2020-08-11 22:00] VITALS: BP 112/63
[2020-08-12] VITALS (7 sets, daily range): BP systolic 94–132; BP diastolic 56–88
[2020-08-12] MEDS: ceFAZolin/D5W- 1GM premix 50 ML IV SCH ×4 (03:04→20:52)
--- NOTE | 2020-08-12 06:27 | NUR ---
Problems reprioritized. Patient report given, questions answered & plan of care reviewed with DANIEL Landaverde and DANIEL Houston.
[2020-08-12 06:28] LABS: BASOPHILS # (AUTO) 0.1 X10'3 (0-0.2); BASOPHILS % (AUTO) 1.2 % (0-1); EOSINOPHILS # (AUTO) 0.6 X10'3 (0-0.9); EOSINOPHILS % (AUTO) 8.2 % (0-6); HEMOGLOBIN 8.6 g/dl (12.0-16.0); LYMPHOCYTES # (AUTO) 1.6 X10'3 (1.1-4.8); LYMPHOCYTES % (AUTO) 20.5 % (21-51); MEAN CORPUSCULAR HEMOGLOBIN 26.4 PG (27.0-31.0); MEAN CORPUSCULAR HGB CONC 31.9 g/dL (33.0-36.5); MEAN CORPUSCULAR VOLUME 82.8 FL (78-98); MEAN PLATELET VOLUME 9.4 FL (7.4-10.4); MONOCYTES # (AUTO) 0.9 X10'3 (0-0.9); NEUTROPHILS # (AUTO) 4.5 X10'3 (1.8-7.7); NEUTROPHILS % (AUTO) 59.1 % (42-75); PLATELET COUNT 143 X10'3 (140-440); RED BLOOD COUNT 3.26 X10'6 (4.20-5.60); WHITE BLOOD COUNT 7.7 X10'3 (4.5-11.0)
[2020-08-12 06:37] LABS: ALANINE AMINOTRANSFERASE 18 U/L (12-78); ALBUMIN 1.6 G/DL (3.4-5.0); ALBUMIN/GLOBULIN RATIO 0.4 (1.1-1.5); ALKALINE PHOSPHATASE 101 IU/L (46-116); ANION GAP 7 (8-16); ASPARTATE AMINO TRANSFERASE 44 U/L (10-37); BILIRUBIN,TOTAL 2.8 MG/DL (0.1-1.0); BLOOD UREA NITROGEN 12 MG/DL (7-18); BUN/CREATININE RATIO 17.6 (6.6-38.0); CALCIUM 7.4 MG/DL (8.5-10.1); CHLORIDE 105 MMOL/L (99-107); CREATININE 0.68 MG/DL (0.40-0.90); GLUCOSE 105 MG/DL (70-104); MAGNESIUM 1.4 MG/DL (1.5-2.4); POTASSIUM 3.4 MMOL/L (3.5-5.1); SODIUM 141 MMOL/L (135-145); TOTAL CARBON DIOXIDE 29.1 MMOL/L (24-32); TOTAL PROTEIN 6.1 G/DL (6.4-8.2); eGFR > 90 ML/MIN
--- NOTE | 2020-08-12 06:40 | NUR ---
Patient in room PCU 3024. I have received report from DANIEL Meyer and had the opportunity to ask questions and assume patient care.
[2020-08-12] MEDS: K and/or MAG REPLACEMENT MC SCH (08:00)
[2020-08-12 08:27] LABS: ANISOCYTOSIS 3+; HYPOCHROMASIA 1+; PLATELET ESTIMATE NORMAL; POLYCHROMASIA FEW
[2020-08-12 08:30] LABS: LARGE PLATELETS FEW
[2020-08-12] MEDS: pantoprazole 40mg Tablet.DR PO SCH (09:19)
[2020-08-12] MEDS: potassium Cl 20 mEq SR tablet PO PRN ×3 (09:20→21:11)
[2020-08-12] MEDS: lactobacillus rhamnosus 10,000 MMU CELLS/CAPSULE PO SCH ×2 (09:20→20:54)
[2020-08-12] MEDS: furosemide 40mg/4ml inj IV SCH ×2 (09:20→20:54)
[2020-08-12] MEDS: nicotine 21mg patch - 24 hr TD SCH (09:24)
--- NOTE | 2020-08-12 09:40 | NUR ---
Paged Dr Gifford re: Mag Level PAGER ID: [phone] MESSAGE: DANIEL Houston - U - Sneha Rowan, Rm 3024B - Pt Mg level is 1.4, can I have a replacement order? Thank you
[2020-08-12] MEDS ORDERED: magnesium 4gm in 100ml NS 100 ML IV PRN (10:00)
[2020-08-12] MEDS ORDERED: LORazepam 0.5 MG tablet PO PRN (10:00)
[2020-08-12] MEDS: magnesium Cl slow-release 64mg tablet PO PRN ×2 (11:44→20:55)
--- NOTE | 2020-08-12 14:11 | NUR ---
RECOMMEND: 1. Daily bathing with no rinse skin cleanser. 2. Cream/Lotion to be applied to skin after bathing. 3. Kourtney care Q shift and prn soiling followed by with Barrier Cream. 4. Turn patient Q 1-2 hrs and reposition with pillows. 5. Float heels to offload pressure. 6. Hydrophylic foam to Posterior right leg. To be changed Q3D or prn saturation.
--- NOTE | 2020-08-12 15:35 | NUR ---
John consult: Pt presented to ER for evaluation of severe cellulitic infection on right lower leg and admitted with sepsis, per ED note. Noted John 11, right lower leg cellulitis is dry and intact per EMR. Noted hx of drug and EtOH abuse. Recommend folate, thiamine and MVI given EtOH hx, MD declines at this time per RN. Noted hx of liver cirrhosis with severe ascites, however no paracentesis this admit. Pt PO intake 25-50% on heart healthy diet, partially meeting estimated nutrient needs. Last BM 08/08, prn bowel care available. Recommend routine bowel care for regularity. RD internist met with patient at bedside, pt reports meat is difficult to chew and bowel irregularity is normal. Pt was agreeable to chopped meats, yogurt and cottage cheese with fruit BIDLD, d/w dietary. Pt also agreeable to prune juice with next meal to promote bowel movement. Will continue to monitor. Recs: 1) Continue heart healthy diet, chopped meats BIDLD 2) Ramsey yogurt and cottage cheese with fruit BIDLD 3) Routine bowel care, prune juice with next meal 4) Folic acid, thiamine, MVI given EtOH hx, if MD agreeable 5) Scaled wt per Rx Addendum: 08/12/20 at [address] Amended: Links added. Addendum: 08/12/20 at [address] JAMA daniel/ operations intern note.
--- NOTE | 2020-08-12 18:35 | NUR ---
Problems reprioritized. Patient report given, questions answered & plan of care reviewed with DANIEL Menendez.
--- NOTE | 2020-08-12 18:40 | NUR ---
Patient in room PCU 3024. I have received report from Cyndee SANCHEZ and had the opportunity to ask questions and assume patient care.
[2020-08-13] MEDS: ceFAZolin/D5W- 1GM premix 50 ML IV SCH ×2 (01:13→07:04)
[2020-08-13 02:00] VITALS: BP 116/59
[2020-08-13 06:00] VITALS: BP 117/71
--- NOTE | 2020-08-13 06:40 | NUR ---
Problems reprioritized. Patient report given, questions answered & plan of care reviewed with Breann SANCHEZ.
[2020-08-13] MEDS: furosemide 40mg/4ml inj IV SCH (07:05)
[2020-08-13] MEDS: pantoprazole 40mg Tablet.DR PO SCH (07:05)
[2020-08-13] MEDS: lactobacillus rhamnosus 10,000 MMU CELLS/CAPSULE PO SCH (07:05)
[2020-08-13] MEDS: nicotine 21mg patch - 24 hr TD SCH (07:06)
[2020-08-13] MEDS: K and/or MAG REPLACEMENT MC SCH (07:06)
[2020-08-13] MEDS: potassium Cl 20 mEq SR tablet PO PRN (07:06)
[2020-08-13] MEDS ORDERED: AMOX500C2 PO (10:15)
[2020-08-13 11:00] VITALS: BP 106/60
--- NOTE | 2020-08-14 09:31 | NUR ---
CASE MANAGEMENT DISCHARGE FOLLOW UP: Spoke with pt via telephone. Reports that she is doing okay, very tired; denies pain, fever. Pt's speech is slow, slurred, difficult to understand. Educated pt on s/sx requiring further evaluation/emergent assistance, she verbalizes understanding. Provided pt with directions on how to take amoxicillin and why she is taking it, pt verbalizes understanding, states that she picked up medication yesterday. Pt states has not made f/u appointment with the [facility], but that she will do so, states that she does not need assistance. States no further questions/concerns at this time.
== END 2020-08-13 12:56 | disposition home or self-care (01) | DRG 720 ==
LOC: ER 16:32 → ED HOLD 20:23 → PCU 3S 08-08 07:35
PROVIDERS: ADMIT Family Medicine; ATTEND Family Medicine
DX: A40.0 Sepsis due to streptococcus, group A (principal); N17.9 Acute kidney failure, unspecified; L03.115 Cellulitis of right lower limb; E87.2 Acidosis; D64.9 Anemia, unspecified; E66.01 Morbid (severe) obesity due to excess calories; K70.31 Alcoholic cirrhosis of liver with ascites; J96.00 Acute respiratory failure, unspecified whether with hypoxia or hypercapnia; D69.6 Thrombocytopenia, unspecified; Z20.822 Contact with and (suspected) exposure to COVID-19; J81.1 Chronic pulmonary edema; B19.20 Unspecified viral hepatitis C without hepatic coma; E83.42 Hypomagnesemia; E87.6 Hypokalemia; I95.9 Hypotension, unspecified; F10.929 Alcohol use, unspecified with intoxication, unspecified; F15.23 Other stimulant dependence with withdrawal; F17.200 Nicotine dependence, unspecified, uncomplicated; Z68.30 Body mass index [BMI] 30.0-30.9, adult; Z88.9 Allergy status to unspecified drugs, medicaments and biological substances; Z90.710 Acquired absence of both cervix and uterus; Z88.8 Allergy status to other drugs, medicaments and biological substances; Z79.899 Other long term (current) drug therapy; Z71.51 Drug abuse counseling and surveillance of drug abuser
CPT/HCPCS: 36415; 36600; 71045; 73701; 80053; 80074; 80202; 80305; 80320; 81001; 82803; 82948; 83036; 83605; 83690; 83735; 83880; 84100; 84145; 84443; 85007; 85008; 85018; 85025; 86140; 86703; 87040; 87077; 87081; 87186; 87635; 93005; 96365; 96375; 97110; 97116; 97161; 99285; C9803; G0378; J0690; J1630; J1940; J2060; J2270; J2543; J3370; J3411; J3480; J7030; Q9967

== ENCOUNTER 2020-09-18 15:22 | Emergency (ER) | payer MEDICAID ==
[~2020-09-18] VITALS: Ht 160 cm; Wt 77.3 kg
[2020-09-18 15:56] VITALS: BP 128/75
--- NOTE | 2020-09-18 16:06 | NUR ---
REGISTRATION REPROTS PT IS DRINKING ALCOHOL IN THE LOBBY OUT OF A GATORADE BOTTLE.
== END 2020-09-18 19:47 | disposition left against medical advice (07) ==
LOC: ER 15:22
DX: K74.60 Unspecified cirrhosis of liver (principal); Z53.21 Procedure and treatment not carried out due to patient leaving prior to being seen by health care provider

== ENCOUNTER 2021-08-17 22:06 | Inpatient (IN) | payer MEDICAID ==
[~2021-08-17] VITALS: Ht 157.5 cm; Wt 63.6 kg
[2021-08-17 23:52] LABS: BASOPHILS % (AUTO) 0.3 % (0-1); EOSINOPHILS % (AUTO) 0.2 % (0-6); HEMATOCRIT 30.2 % (35.0-45.0); HEMOGLOBIN 9.9 g/dl (12.0-16.0); LYMPHOCYTES # (AUTO) 0.2 X10'3 (1.1-4.8); LYMPHOCYTES % (AUTO) 2.2 % (21-51); MEAN CORPUSCULAR HEMOGLOBIN 28.4 PG (27.0-31.0); MEAN CORPUSCULAR HGB CONC 32.7 g/dL (33.0-36.5); MEAN CORPUSCULAR VOLUME 86.8 FL (78-98); MEAN PLATELET VOLUME 8.5 FL (7.4-10.4); MONOCYTES # (AUTO) 0.4 X10'3 (0-0.9); MONOCYTES % (AUTO) 6.4 % (2-12); NEUTROPHILS # (AUTO) 6.4 X10'3 (1.8-7.7); NEUTROPHILS % (AUTO) 90.9 % (42-75); PLATELET COUNT 102 X10'3 (140-440); RED BLOOD COUNT 3.47 X10'6 (4.20-5.60); RED CELL DISTRIBUTION WIDTH 18.3 % (11.5-14.5)
[2021-08-17 23:53] LABS: CLARITY,URINE CLEAR (Clear); COLOR,URINE YELLOW (Yellow); GLUCOSE, URINE NEGATIVE (Neg); KETONES,URINE TRACE mg/dl (Neg); LEUKOCYTE ESTERASE ,URINE TRACE (Neg); NITRITES, URINE NEGATIVE (Neg); OCCULT BLOOD,URINE TRACE-INTACT (Neg); PH,URINE 6.5 (4.8-8.0); PROTEIN,URINE NEGATIVE (Neg)
[2021-08-17] MEDS ORDERED: normal saline 1000ml 1,000 ML IV ONE (23:55)
[2021-08-17 23:58] LABS: UA COLLECTION TYPE STRAIGHT CATH
[2021-08-17 23:59] LABS: BACTERIA,URINE FEW /HPF (Neg); RBC,URINE 0-2 /HPF (0-2); SQUAMOUS EPITHELIAL CELL,UR FEW /LPF (FEW); WBC,URINE 0-4 /HPF (0-4)
[2021-08-18 00:04] LABS: ALANINE AMINOTRANSFERASE 59 U/L (12-78); ALBUMIN 2.5 G/DL (3.4-5.0); ALKALINE PHOSPHATASE 138 IU/L (46-116); ANION GAP 13 (8-16); ASPARTATE AMINO TRANSFERASE 83 U/L (10-37); BILIRUBIN,TOTAL 4.9 MG/DL (0.1-1.0); BLOOD UREA NITROGEN 11 MG/DL (7-18); BUN/CREATININE RATIO 12.8 (6.6-38.0); CALCIUM 8.3 MG/DL (8.5-10.1); CHLORIDE 99 MMOL/L (99-107); CREATININE 0.86 MG/DL (0.40-0.90); GLUCOSE 99 MG/DL (70-104); SODIUM 138 MMOL/L (135-145); TOTAL CARBON DIOXIDE 26.2 MMOL/L (24-32); eGFR 69 ML/MIN
[2021-08-18 00:05] LABS: ALBUMIN/GLOBULIN RATIO 0.6 (1.1-1.5); TOTAL PROTEIN 6.5 G/DL (6.4-8.2)
--- NOTE | 2021-08-18 00:17 | NUR ---
Notified by LAB. Pt potassium 2.0
[2021-08-18] MEDS ORDERED: potassium Cl 20 mEq SR tablet PO STA (00:25)
[2021-08-18] MEDS ORDERED: cefepime 1GM/NS ADD-VANTAGE 100 ML IV ONE (00:25)
[2021-08-18] MEDS ORDERED: normal saline 1000ml 1,000 ML IV ONE (00:25)
[2021-08-18] MEDS ORDERED: vancomycin/NS 1 GM ADD-VANTAGE 250 ML IV ONE (00:26)
[2021-08-18] MEDS ORDERED: cefepime 1GM in D5W 50mL 50 ML IV ONE (00:27)
--- NOTE | 2021-08-18 00:50 | NUR ---
IV # 20 inserted in LFA by rn, blood cx collected and sent
[2021-08-18 01:06] LABS: BILIRUBIN,DIRECT 1.7 MG/DL (0-0.3); ETHANOL < 0.010 GM/DL (0.0-0.010)
[2021-08-18 01:08] LABS: URINE AMPHETAMINE SCREEN POSITIVE (Neg); URINE BARBITUATE SCREEN NEGATIVE (Neg); URINE BENZODIAZEPINES SCREEN NEGATIVE (Neg); URINE CANNABINOID SCREEN NEGATIVE (Neg); URINE COCAINE SCREEN NEGATIVE (Neg); URINE METHADONE SCREEN NEGATIVE (Neg); URINE OPIATE SCREEN NEGATIVE (Neg); URINE PHENCYCLIDINE SCREEN NEGATIVE (Neg)
--- NOTE | 2021-08-18 01:30 | NUR ---
pt observed resting comfortably
--- NOTE | 2021-08-18 01:30 | NUR ---
Rohit dorman in EDM - 08/18/21 at 0139 by ELAYNE contacted pt's ex- to pick remover pt from the ed; states she'll be here in 15 mins. Reminded her to bring pt's oxygen.
[2021-08-18] MEDS ORDERED: iohexol 300mg/ml 100ml inj. ONE (02:13)
--- NOTE | 2021-08-18 02:30 | NUR ---
Pt sleeping calmly, vss, sig other at bs
[2021-08-18 03:10] LABS: LIPASE 196 U/L (73-393)
[2021-08-18 03:16] LABS: MAGNESIUM 1.3 MG/DL (1.5-2.4)
--- NOTE | 2021-08-18 03:30 | NUR ---
pt asleep , denies needs
--- NOTE | 2021-08-18 04:39 | NUR ---
Ultrasound paged by community service manager.
[2021-08-18] MEDS ORDERED: magnesium 2GM in 50ml NS 50 ML IV PRN (05:10)
[2021-08-18] MEDS ORDERED: potassium CL 10mEq/100ml bag 100 ML IV PRN (05:10)
[2021-08-18] MEDS ORDERED: magnesium 4gm in 100ml NS 100 ML IV PRN (05:10)
[2021-08-18] MEDS ORDERED: morphine 2 MG/ML inj. syringe IV PRN ×2 (05:10)
[2021-08-18] MEDS ORDERED: ondansetron/PF 4mg/2ml inj IV PRN (05:10)
[2021-08-18] MEDS ORDERED: magnesium hydroxide 30ml (MOM) UD suspension PO PRN (05:10)
[2021-08-18] MEDS ORDERED: mag hydrox/Alum hydrox/simeth 30ml oral suspension PO PRN (05:10)
[2021-08-18] MEDS ORDERED: potassium Cl 20 mEq SR tablet PO PRN (05:10)
[2021-08-18] MEDS ORDERED: LORazepam 2 mg/ml vial IV PRN (05:15)
[2021-08-18] MEDS ORDERED: haloperidol 5mg tablet PO PRN (05:15)
[2021-08-18] MEDS ORDERED: haloperidol lactate 5mg/ml inj IM PRN (05:15)
[2021-08-18] MEDS ORDERED: NO HOME MEDS (05:33)
--- NOTE | 2021-08-18 05:45 | NUR ---
Elevated temp of 100.2, Hospitalist, Dr. Bharti lua
[2021-08-18] MEDS: ibuprofen 200mg tablet PO PRN (06:35)
--- NOTE | 2021-08-18 06:36 | NUR ---
Pt medicated per mar for elevated temp
[2021-08-18 07:40] VITALS: BP 106/57
[2021-08-18] MEDS: multivitamins, therapeutics tablet PO SCH (08:27)
[2021-08-18] MEDS: thiamine 100mg tablet PO SCH (08:27)
[2021-08-18] MEDS: docusate sod 100mg capsule PO SCH ×2 (08:27→20:39)
[2021-08-18] MEDS: folic acid 1mg tablet PO SCH (08:27)
[2021-08-18] MEDS: potassium Cl 20 mEq SR tablet PO PRN ×2 (08:28→20:39)
[2021-08-18] MEDS: K and/or MAG REPLACEMENT MC SCH ×2 (08:30→20:41)
[2021-08-18 09:17] LABS: APTT 34 SECONDS (22-32)
[2021-08-18] MEDS: piperacillin/tazo 4.5gm/100ml 100 ML IV SCH ×2 (09:28→16:11)
[2021-08-18 11:00] VITALS: BP 114/58
[2021-08-18] MEDS: lactulose 20gm/30ml cup PO SCH ×2 (16:10→20:36)
[2021-08-18 18:00] VITALS: BP 108/58
[2021-08-18 22:00] VITALS: BP 97/53
[2021-08-19] MEDS: piperacillin/tazo 4.5gm/100ml 100 ML IV SCH ×2 (00:42→08:18)
[2021-08-19] MEDS: lactulose 20gm/30ml cup PO SCH ×4 (01:45→20:25)
[2021-08-19 02:54] VITALS: BP 112/47
[2021-08-19] MEDS: ibuprofen 200mg tablet PO PRN ×2 (02:59→09:39)
[2021-08-19] MEDS: normal saline 1000ml 1,000 ML IV SCH ×2 (05:04→15:36)
--- NOTE | 2021-08-19 05:20 | NUR ---
Temp running high 101.6.HR 113. Medicated per [facility] med protocol..no result. fever at 101.[address] Hay notified,IV fluid NS ordered and started at 100cc/hr. Wet wash clothes placed on pt's forehead and yesenia armpits.Extra blanket removed. HR down to 102. and temp 98.9. Will continue to monitor.
[2021-08-19 06:00] VITALS: BP 114/67
[2021-08-19 08:16] LABS: BASOPHILS % (AUTO) 0.2 % (0-1); EOSINOPHILS % (AUTO) 0.1 % (0-6); HEMATOCRIT 27.1 % (35.0-45.0); HEMOGLOBIN 8.6 g/dl (12.0-16.0); LYMPHOCYTES # (AUTO) 0.4 X10'3 (1.1-4.8); MEAN CORPUSCULAR HEMOGLOBIN 28.1 PG (27.0-31.0); MEAN CORPUSCULAR HGB CONC 31.9 g/dL (33.0-36.5); MEAN CORPUSCULAR VOLUME 88.2 FL (78-98); MEAN PLATELET VOLUME 9.2 FL (7.4-10.4); MONOCYTES # (AUTO) 0.5 X10'3 (0-0.9); MONOCYTES % (AUTO) 6.7 % (2-12); NEUTROPHILS # (AUTO) 6.6 X10'3 (1.8-7.7); PLATELET COUNT 88 X10'3 (140-440); RED BLOOD COUNT 3.07 X10'6 (4.20-5.60); RED CELL DISTRIBUTION WIDTH 19.1 % (11.5-14.5); WHITE BLOOD COUNT 7.5 X10'3 (4.5-11.0)
[2021-08-19] MEDS: thiamine 100mg tablet PO SCH (08:18)
[2021-08-19] MEDS: docusate sod 100mg capsule PO SCH ×2 (08:18→20:25)
[2021-08-19] MEDS: multivitamins, therapeutics tablet PO SCH (08:18)
[2021-08-19] MEDS: folic acid 1mg tablet PO SCH (08:18)
[2021-08-19] MEDS: K and/or MAG REPLACEMENT MC SCH ×2 (08:22→20:26)
[2021-08-19 08:42] LABS: ALANINE AMINOTRANSFERASE 46 U/L (12-78); ALBUMIN 1.9 G/DL (3.4-5.0); ALBUMIN/GLOBULIN RATIO 0.5 (1.1-1.5); ALKALINE PHOSPHATASE 77 IU/L (46-116); ANION GAP 8 (8-16); ASPARTATE AMINO TRANSFERASE 83 U/L (10-37); BILIRUBIN,TOTAL 3.8 MG/DL (0.1-1.0); BLOOD UREA NITROGEN 18 MG/DL (7-18); BUN/CREATININE RATIO 19.4 (6.6-38.0); CALCIUM 7.3 MG/DL (8.5-10.1); CHLORIDE 106 MMOL/L (99-107); CREATININE 0.93 MG/DL (0.40-0.90); GLUCOSE 103 MG/DL (70-104); LIPASE 87 U/L (73-393); PHOSPHORUS 1.5 MG/DL (2.3-4.5); SODIUM 140 MMOL/L (135-145); TOTAL CARBON DIOXIDE 26.1 MMOL/L (24-32); TOTAL PROTEIN 5.5 G/DL (6.4-8.2); eGFR 63 ML/MIN
[2021-08-19 08:50] LABS: POTASSIUM 2.8 MMOL/L (3.5-5.1)
[2021-08-19 08:58] LABS: MAGNESIUM 1.4 MG/DL (1.5-2.4)
[2021-08-19] MEDS: potassium Cl 20 mEq SR tablet PO PRN ×3 (09:03→20:25)
[2021-08-19 09:08] LABS: ANISOCYTOSIS 2+; PLATELET ESTIMATE DECREASED
[2021-08-19] MEDS ORDERED: clindamycin 600mg/D5W 50ml 50 ML IV SCH (09:15)
[2021-08-19] MEDS ORDERED: iohexol 300mg/ml 100ml inj. ONE (10:42)
[2021-08-19 11:00] VITALS: BP 118/64
[2021-08-19 15:00] VITALS: BP 116/72
[2021-08-19] MEDS: clindamycin-Cleocin 900mg/D5W 50 ML IV SCH (15:38)
[2021-08-19] MEDS ORDERED: cefazolin/dext.iso 2gm/100ml 100 ML IV SCH (16:00)
[2021-08-19 18:00] VITALS: BP 122/64
[2021-08-19 22:00] VITALS: BP 115/73
[2021-08-20] MEDS: normal saline 1000ml 1,000 ML IV SCH ×3 (00:20→21:00)
[2021-08-20] MEDS: ceFAZolin 2gm in dextrose, iso 50 ML IV SCH ×4 (00:20→23:35)
[2021-08-20] MEDS: clindamycin-Cleocin 900mg/D5W 50 ML IV SCH ×4 (00:20→23:35)
[2021-08-20] MEDS: vancomycin/NS 1 GM ADD-VANTAGE 250 ML IV SCH ×2 (00:21→12:20)
[2021-08-20] MEDS: lactulose 20gm/30ml cup PO SCH ×4 (01:32→20:00)
[2021-08-20 02:00] VITALS: BP 108/69
[2021-08-20] MEDS ORDERED: LORazepam 1 MG tablet PO PRN (05:15)
[2021-08-20] MEDS ORDERED: LORazepam 2 mg/ml vial IV PRN (05:15)
[2021-08-20 06:00] VITALS: BP 119/71
[2021-08-20 06:49] LABS: BASOPHILS # (AUTO) 0.1 X10'3 (0-0.2); BASOPHILS % (AUTO) 1.1 % (0-1); EOSINOPHILS # (AUTO) 0.3 X10'3 (0-0.9); EOSINOPHILS % (AUTO) 4.2 % (0-6); HEMOGLOBIN 8.5 g/dl (12.0-16.0); LYMPHOCYTES # (AUTO) 0.9 X10'3 (1.1-4.8); LYMPHOCYTES % (AUTO) 14.7 % (21-51); MEAN CORPUSCULAR HEMOGLOBIN 27.9 PG (27.0-31.0); MEAN CORPUSCULAR HGB CONC 31.6 g/dL (33.0-36.5); MEAN CORPUSCULAR VOLUME 88.3 FL (78-98); MEAN PLATELET VOLUME 9.1 FL (7.4-10.4); MONOCYTES # (AUTO) 0.9 X10'3 (0-0.9); MONOCYTES % (AUTO) 14.3 % (2-12); NEUTROPHILS % (AUTO) 65.7 % (42-75); PLATELET COUNT 98 X10'3 (140-440); RED BLOOD COUNT 3.06 X10'6 (4.20-5.60); RED CELL DISTRIBUTION WIDTH 19.4 % (11.5-14.5); WHITE BLOOD COUNT 6.1 X10'3 (4.5-11.0)
[2021-08-20] MEDS: folic acid 1mg tablet PO SCH (08:12)
[2021-08-20] MEDS: multivitamins, therapeutics tablet PO SCH (08:12)
[2021-08-20] MEDS: thiamine 100mg tablet PO SCH (08:12)
[2021-08-20] MEDS: docusate sod 100mg capsule PO SCH ×2 (08:13→20:00)
[2021-08-20] MEDS: potassium Cl 20 mEq SR tablet PO PRN (08:13)
[2021-08-20] MEDS: K and/or MAG REPLACEMENT MC SCH ×2 (08:15→20:00)
[2021-08-20 08:25] LABS: ALANINE AMINOTRANSFERASE 42 U/L (12-78); ALBUMIN 1.8 G/DL (3.4-5.0); ALBUMIN/GLOBULIN RATIO 0.5 (1.1-1.5); ALKALINE PHOSPHATASE 83 IU/L (46-116); ANION GAP 9 (8-16); ASPARTATE AMINO TRANSFERASE 65 U/L (10-37); BILIRUBIN,TOTAL 2.3 MG/DL (0.1-1.0); BLOOD UREA NITROGEN 17 MG/DL (7-18); BUN/CREATININE RATIO 22.4 (6.6-38.0); CALCIUM 7.5 MG/DL (8.5-10.1); CHLORIDE 111 MMOL/L (99-107); CREATININE 0.76 MG/DL (0.40-0.90); GLUCOSE 103 MG/DL (70-104); MAGNESIUM 1.6 MG/DL (1.5-2.4); PHOSPHORUS 1.8 MG/DL (2.3-4.5); POTASSIUM 3.6 MMOL/L (3.5-5.1); SODIUM 143 MMOL/L (135-145); TOTAL CARBON DIOXIDE 23.2 MMOL/L (24-32); TOTAL PROTEIN 5.3 G/DL (6.4-8.2); eGFR 80 ML/MIN
[2021-08-20 09:00] LABS: LIPASE 143 U/L (73-393)
[2021-08-20 11:00] VITALS: BP 114/68
[2021-08-20 18:00] VITALS: BP 111/70
[2021-08-20 22:00] VITALS: BP 110/69
[2021-08-21] MEDS ORDERED: VANCOMYCIN LEVEL IV ONE (00:30)
[2021-08-21] MEDS: vancomycin/NS 1 GM ADD-VANTAGE 250 ML IV SCH (01:13)
[2021-08-21] MEDS: lactulose 20gm/30ml cup PO SCH ×3 (01:14→14:56)
[2021-08-21 02:00] VITALS: BP 133/82
[2021-08-21 06:00] VITALS: BP 121/69
[2021-08-21 07:15] LABS: BASOPHILS # (AUTO) 0.1 X10'3 (0-0.2); BASOPHILS % (AUTO) 1.3 % (0-1); EOSINOPHILS # (AUTO) 0.4 X10'3 (0-0.9); EOSINOPHILS % (AUTO) 6.3 % (0-6); HEMOGLOBIN 8.5 g/dl (12.0-16.0); LYMPHOCYTES # (AUTO) 1.6 X10'3 (1.1-4.8); LYMPHOCYTES % (AUTO) 27.8 % (21-51); MEAN CORPUSCULAR HEMOGLOBIN 27.6 PG (27.0-31.0); MEAN CORPUSCULAR HGB CONC 31.4 g/dL (33.0-36.5); MEAN CORPUSCULAR VOLUME 88.1 FL (78-98); MEAN PLATELET VOLUME 9.1 FL (7.4-10.4); MONOCYTES % (AUTO) 17.6 % (2-12); NEUTROPHILS # (AUTO) 2.7 X10'3 (1.8-7.7); PLATELET COUNT 122 X10'3 (140-440); RED BLOOD COUNT 3.06 X10'6 (4.20-5.60); RED CELL DISTRIBUTION WIDTH 19.8 % (11.5-14.5); WHITE BLOOD COUNT 5.7 X10'3 (4.5-11.0)
[2021-08-21] MEDS: clindamycin-Cleocin 900mg/D5W 50 ML IV SCH ×2 (07:35→14:56)
[2021-08-21] MEDS: ceFAZolin 2gm in dextrose, iso 50 ML IV SCH ×2 (07:35→14:56)
[2021-08-21] MEDS: normal saline 1000ml 1,000 ML IV SCH ×2 (07:35→17:05)
[2021-08-21] MEDS: folic acid 1mg tablet PO SCH (07:36)
[2021-08-21] MEDS: thiamine 100mg tablet PO SCH (07:36)
[2021-08-21] MEDS: multivitamins, therapeutics tablet PO SCH (07:36)
[2021-08-21] MEDS: docusate sod 100mg capsule PO SCH (07:36)
--- NOTE | 2021-08-21 07:46 | NUR ---
Initial: Pt admitted w/ Sepsis secondary to RLE cellulitis; colitis, and hepatic encephalopathy per EMR. Currently on Regular diet consuming 50% of meals partially meeting needs. Pt could benefit from Ensure High Protein BID to help meet nutrient needs. LBM 08/19 receiving routine colace and lactulose. Will continue to monitor and make recommendations as appropriate. Recs: 1. Continue Regular diet as tolerated 2. Ensure High protein BIDBD; pending MD verification 3. Bowel care per rx 4. Routine Thiamine, Folic acid, MVI for EtOH hx 5. Scaled wts Addendum: 08/21/21 at [address] Amended: Links added.
[2021-08-21] MEDS: K and/or MAG REPLACEMENT MC SCH (08:00)
[2021-08-21 08:01] LABS: ALANINE AMINOTRANSFERASE 33 U/L (12-78); ALBUMIN 1.8 G/DL (3.4-5.0); ALBUMIN/GLOBULIN RATIO 0.5 (1.1-1.5); ALKALINE PHOSPHATASE 87 IU/L (46-116); ANION GAP 6 (8-16); ASPARTATE AMINO TRANSFERASE 51 U/L (10-37); BILIRUBIN,TOTAL 1.7 MG/DL (0.1-1.0); BLOOD UREA NITROGEN 11 MG/DL (7-18); BUN/CREATININE RATIO 18.6 (6.6-38.0); CALCIUM 6.9 MG/DL (8.5-10.1); CHLORIDE 111 MMOL/L (99-107); CREATININE 0.59 MG/DL (0.40-0.90); GLUCOSE 80 MG/DL (70-104); LIPASE 193 U/L (73-393); MAGNESIUM 1.4 MG/DL (1.5-2.4); PHOSPHORUS 2.6 MG/DL (2.3-4.5); POTASSIUM 3.4 MMOL/L (3.5-5.1); SODIUM 142 MMOL/L (135-145); TOTAL CARBON DIOXIDE 24.6 MMOL/L (24-32); TOTAL PROTEIN 5.1 G/DL (6.4-8.2); eGFR > 90 ML/MIN
[2021-08-21 08:15] LABS: ANISOCYTOSIS 2+; PLATELET ESTIMATE DECREASED; TOTAL CELLS COUNTED 100
[2021-08-21 08:16] LABS: ELLIPTOCYTES FEW; TEAR DROP CELLS FEW
[2021-08-21 08:17] LABS: POLYCHROMASIA FEW
[2021-08-21 08:57] LABS: C-REACTIVE PROTEIN 5.66 MG/DL (0.0-0.5)
[2021-08-21] MEDS ORDERED: VANCOmycin 1250MG/NS 250ml Bag 250 ML IV SCH (09:00)
[2021-08-21 11:00] VITALS: BP 134/78
--- NOTE | 2021-08-21 12:24 | NUR ---
PATIENT TO BE DISCHARGE TO [facility] AT 1600 TODAY PER THE MANAGER OF INTERNATIONAL AND MD. REPORT GIVEN TO DANIEL MEHTA. AT [facility].
[2021-08-21 15:00] VITALS: BP 132/82
[2021-08-21] MEDS ORDERED: lactose-reduced food (Ensure High Protein) 237ml bottle PO SCH (17:30)
--- NOTE | 2021-08-21 19:13 | NUR ---
Pt discharged and picked up to [facility] at 1909. No distress noted.IV access continued for further use at [facility]
[2021-08-22] MEDS ORDERED: LORazepam 1 MG tablet PO PRN (05:15)
[2021-08-22] MEDS ORDERED: LORazepam 2 mg/ml vial IV PRN (05:15)
[2021-08-22] MEDS ORDERED: VANCOMYCIN LEVEL IV ONE (20:30)
== END 2021-08-21 19:12 | DRG 720 ==
LOC: ER 22:07 → ED HOLD 08-18 05:12 → PCU 3S 08-18 07:16
PROVIDERS: ADMIT Family Medicine; ATTEND Family Medicine
PROC: BW211ZZ Computerized Tomography (CT Scan) of Abdomen and Pelvis using Low Osmolar Contrast (ICD-10-PCS; principal; 2021-08-18)
PROC: BQ2R1ZZ Computerized Tomography (CT Scan) of Right Lower Extremity using Low Osmolar Contrast (ICD-10-PCS; 2021-08-19)
DX: A40.9 Streptococcal sepsis, unspecified (principal); J69.0 Pneumonitis due to inhalation of food and vomit; K70.31 Alcoholic cirrhosis of liver with ascites; K72.90 Hepatic failure, unspecified without coma; F15.10 Other stimulant abuse, uncomplicated; K52.9 Noninfective gastroenteritis and colitis, unspecified; E87.6 Hypokalemia; E83.42 Hypomagnesemia; D64.9 Anemia, unspecified; B19.20 Unspecified viral hepatitis C without hepatic coma; L03.115 Cellulitis of right lower limb; Z20.822 Contact with and (suspected) exposure to COVID-19; F10.20 Alcohol dependence, uncomplicated; Z90.710 Acquired absence of both cervix and uterus; Z87.440 Personal history of urinary (tract) infections; Z86.14 Personal history of Methicillin resistant Staphylococcus aureus infection; Z88.6 Allergy status to analgesic agent; Z88.8 Allergy status to other drugs, medicaments and biological substances; Z56.0 Unemployment, unspecified
CPT/HCPCS: 36415; 70450; 71045; 73701; 74177; 76700; 80053; 80202; 80305; 80320; 81001; 82140; 82248; 82948; 83605; 83690; 83735; 84100; 84145; 85007; 85008; 85025; 85610; 85730; 86140; 87040; 87077; 87088; 87186; 87635; 96361; 96365; 96366; 96368; 97161; 97530; 99285; C9803; G0378; J0690; J0692; J1630; J2060; J2543; J3370; J3490; J7030; Q9967

== ENCOUNTER 2022-02-28 00:17 | Inpatient (IN) | payer MEDICAID ==
[~2022-02-28] VITALS: Ht 157.5 cm; Wt 63.6 kg
[~2022-02-28 00:17] MED LIST changes: -CEPH-357 PO; -SPIR25TA5 PO
[2022-02-28] MEDS ORDERED: vancomycin/NS 1 GM ADD-VANTAGE 250 ML IV ONE (00:30)
[2022-02-28] MEDS ORDERED: CefTRIAXone 2gm/D5W 50ml BAG 50 ML IV ONE (00:30)
[2022-02-28] MEDS ORDERED: normal saline 1000ML IV soln IV ONE (00:30)
[2022-02-28] MEDS ORDERED: LIDOcaine 2% 10ml TOPICAL JELLY (Urojet) TP ONE (00:35)
[2022-02-28 00:54] LABS: BASOPHILS % (AUTO) 0.2 % (0-1); EOSINOPHILS % (AUTO) 0 % (0-6); HEMATOCRIT 31.4 % (35.0-45.0); HEMOGLOBIN 10.3 g/dl (12.0-16.0); LYMPHOCYTES # (AUTO) 0.3 X10'3 (1.1-4.8); LYMPHOCYTES % (AUTO) 2.4 % (21-51); MEAN CORPUSCULAR HEMOGLOBIN 28.6 PG (27.0-31.0); MEAN CORPUSCULAR HGB CONC 32.7 g/dL (33.0-36.5); MEAN CORPUSCULAR VOLUME 87.4 FL (78-98); MEAN PLATELET VOLUME 8.3 FL (7.4-10.4); MONOCYTES # (AUTO) 0.5 X10'3 (0-0.9); MONOCYTES % (AUTO) 3.7 % (2-12); NEUTROPHILS # (AUTO) 12.3 X10'3 (1.8-7.7); NEUTROPHILS % (AUTO) 93.7 % (42-75); PLATELET COUNT 136 X10'3 (140-440); RED CELL DISTRIBUTION WIDTH 19.9 % (11.5-14.5); WHITE BLOOD COUNT 13.1 X10'3 (4.5-11.0)
[2022-02-28 01:12] LABS: ANISOCYTOSIS 2+; LARGE PLATELETS FEW; PLATELET ESTIMATE DECREASED; TOTAL CELLS COUNTED 100; TOXIC GRANULATION 1+; TOXIC VACUOLATION 1+
[2022-02-28 01:13] LABS: POLYCHROMASIA FEW
[2022-02-28 01:20] LABS: ALANINE AMINOTRANSFERASE 59 U/L (12-78); ALBUMIN 2.2 G/DL (3.4-5.0); ALBUMIN/GLOBULIN RATIO 0.5 (1.1-1.5); ALKALINE PHOSPHATASE 83 IU/L (46-116); ANION GAP 10 (8-16); ASPARTATE AMINO TRANSFERASE 72 U/L (10-37); BILIRUBIN,TOTAL 3.2 MG/DL (0.1-1.0); BLOOD UREA NITROGEN 18 MG/DL (7-18); BUN/CREATININE RATIO 13.8 (6.6-38.0); CALCIUM 8.5 MG/DL (8.5-10.1); CHLORIDE 101 MMOL/L (99-107); GLUCOSE 107 MG/DL (70-104); MAGNESIUM 1.2 MG/DL (1.5-2.4); SODIUM 140 MMOL/L (135-145); TOTAL CARBON DIOXIDE 28.7 MMOL/L (24-32); TOTAL PROTEIN 6.5 G/DL (6.4-8.2); eGFR 43 ML/MIN
[2022-02-28 01:27] LABS: ETHANOL < 0.010 GM/DL (0.0-0.010); POTASSIUM 2.4 MMOL/L (3.5-5.1)
[2022-02-28 01:44] LABS: CLARITY,URINE CLOUDY (Clear); COLOR,URINE YELLOW (Yellow); GLUCOSE, URINE NEGATIVE (Neg); KETONES,URINE NEGATIVE (Neg); LEUKOCYTE ESTERASE ,URINE TRACE (Neg); NITRITES, URINE NEGATIVE (Neg); OCCULT BLOOD,URINE TRACE-INTACT (Neg); PROTEIN,URINE TRACE mg/dl (Neg)
[2022-02-28 01:51] LABS: UA COLLECTION TYPE FOLEY CATH
[2022-02-28 01:52] LABS: SQUAMOUS EPITHELIAL CELL,UR MODERATE /LPF (FEW)
[2022-02-28 01:53] LABS: BACTERIA,URINE 4+ /HPF (Neg); RBC,URINE 0-2 /HPF (0-2)
[2022-02-28 01:54] LABS: TRANSITIONAL EPI CELLS,URINE FEW /HPF; WBC CLUMPS,URINE FEW /HPF (NEGATIVE); WBC,URINE 30-50 /HPF (0-4)
[2022-02-28] MEDS ORDERED: magnesium 2GM in 50ml NS 50 ML IV ONE ×2 (01:55→06:45)
[2022-02-28] MEDS ORDERED: potassium CL 10mEq/100ml bag 100 ML IV ONE ×3 (01:55→06:45)
[2022-02-28 02:08] LABS: URINE AMPHETAMINE SCREEN POSITIVE (Neg); URINE BARBITUATE SCREEN NEGATIVE (Neg); URINE BENZODIAZEPINES SCREEN NEGATIVE (Neg); URINE CANNABINOID SCREEN NEGATIVE (Neg); URINE COCAINE SCREEN NEGATIVE (Neg); URINE METHADONE SCREEN NEGATIVE (Neg); URINE OPIATE SCREEN NEGATIVE (Neg); URINE PHENCYCLIDINE SCREEN NEGATIVE (Neg)
[2022-02-28] MEDS ORDERED: magnesium hydroxide 30ml (MOM) UD suspension PO PRN (03:35)
[2022-02-28] MEDS ORDERED: bisacodyl 10mg suppository rectal RC PRN (03:35)
[2022-02-28] MEDS ORDERED: dextrose 50%-water 50ml dispensing syringe IV PRN (03:35)
[2022-02-28] MEDS ORDERED: haloperidol 5mg tablet PO PRN (03:35)
[2022-02-28] MEDS ORDERED: LORazepam 2 mg/ml vial IV PRN (03:35)
[2022-02-28] MEDS ORDERED: diphenhydrAMINE 50 mg/ml inj IV PRN (03:35)
[2022-02-28] MEDS ORDERED: diphenhydrAMINE 25mg capsule PO PRN (03:35)
[2022-02-28] MEDS: potassium Cl 20mEq in NS 1,000 ML IV SCH ×3 (03:35→19:04)
[2022-02-28] MEDS ORDERED: ondansetron/PF 4mg/2ml inj IV PRN (03:35)
[2022-02-28] MEDS ORDERED: haloperidol lactate 5mg/ml inj IM PRN (03:35)
[2022-02-28] MEDS ORDERED: potassium CL 10mEq/100ml bag 100 ML IV PRN (03:35)
[2022-02-28] MEDS ORDERED: magnesium Cl slow-release 64mg tablet PO PRN (03:35)
[2022-02-28] MEDS ORDERED: ondansetron 4mg rapidly disintigrating tab PO PRN (03:35)
[2022-02-28] MEDS ORDERED: magnesium 4gm in 100ml NS 100 ML IV PRN (03:35)
[2022-02-28] MEDS ORDERED: magnesium 2GM in 50ml NS 50 ML IV PRN (03:35)
[2022-02-28] MEDS ORDERED: mag hydrox/Alum hydrox/simeth 30ml oral suspension PO PRN (03:35)
[2022-02-28] MEDS ORDERED: POTASSIUM BICARB 20meq eff tab 20 MEQ TABLET.EFF PO PRN (03:35)
[2022-02-28] MEDS ORDERED: normal saline 1000ML IV soln IVB ONE (04:05)
[2022-02-28 04:15] LABS: PHOSPHORUS 2.4 MG/DL (2.3-4.5)
[2022-02-28 04:19] LABS: APTT 31 SECONDS (22-32)
[2022-02-28 04:23] LABS: POTASSIUM 2.4 MMOL/L (3.5-5.1)
--- NOTE | 2022-02-28 04:29 | NUR ---
MD notified of critical values of Potassium, Lactic Acid, and Troponin
[2022-02-28] MEDS ORDERED: normal saline 1000ml 1,000 ML IV STA (06:53)
--- NOTE | 2022-02-28 07:17 | NUR ---
continued patient on cooling measures,icepacks, bedbath and cold NS bolus.We will monitor.
[2022-02-28] MEDS ORDERED: pantoprazole 40mg Tablet.DR PO SCH (07:30)
[2022-02-28] MEDS: lactulose 20gm/30ml cup PO SCH ×2 (08:00→14:08)
[2022-02-28] MEDS: folic acid 1mg/0.2ml inj IV SCH (08:00)
[2022-02-28] MEDS: rifaximin 550mg tablet PO SCH (08:00)
[2022-02-28] MEDS: docusate sod 100mg capsule PO SCH (08:00)
[2022-02-28] MEDS: K and/or MAG REPLACEMENT MC SCH ×2 (08:00→20:00)
[2022-02-28] MEDS ORDERED: CefTRIAXone/D5W-Rocephin 1gm 50 ML IV SCH (08:00)
[2022-02-28] MEDS: thiamine 100mg/ml 2ml inj. IV SCH ×2 (08:54→13:03)
[2022-02-28] MEDS: heparin, porcine 5000 units/ml vial SQ SCH (08:56)
--- NOTE | 2022-02-28 09:54 | NUR ---
attempted to call report,Rose SANCHEZ unavailable.
[2022-02-28] MEDS: pantoprazole 40MG/NS 100ML BAG 100 ML IV SCH (10:02)
[2022-02-28 10:09] LABS: ALBUMIN 1.7 G/DL (3.4-5.0); ANION GAP 10 (8-16); BLOOD UREA NITROGEN 17 MG/DL (7-18); BUN/CREATININE RATIO 17.2 (6.6-38.0); CHLORIDE 109 MMOL/L (99-107); CREATININE 0.99 MG/DL (0.40-0.90); GLUCOSE 104 MG/DL (70-104); SODIUM 144 MMOL/L (135-145); TOTAL CARBON DIOXIDE 24.7 MMOL/L (24-32); eGFR 59 ML/MIN
[2022-02-28 10:14] LABS: POTASSIUM 2.5 MMOL/L (3.5-5.1)
--- NOTE | 2022-02-28 10:26 | NUR ---
called pharmacy to deliver large IV K maintenance bag to pcu,also paged Dr. warren regarding lactic 4.7
--- NOTE | 2022-02-28 11:00 | NUR ---
Pt arrived to floor, A & o x2, sleepy, wakes up with name. Pt has severe right foot cellulitis, an open wound on RLE, oozing. Redness from foot up to the groin. Area was marked with marker. dry and pale skin. IVF started running now.
[2022-02-28] MEDS: POTASSIUM BICARB 20meq eff tab 20 MEQ TABLET.EFF PO PRN (13:03)
--- NOTE | 2022-02-28 14:49 | NUR ---
PAGER ID: [phone] MESSAGE: Sneha Rowan#[phone]- pt needs pain medication please. PT attempted to work with PT but she is painful. Allergy to several meds. Thank you Ana Lilia Diallo [phone]
--- NOTE | 2022-02-28 14:58 | NUR ---
PAGER ID: [phone] MESSAGE: Sneha Rowan#[phone]- pt has a critical Lactic value- 5.8 (4.2, -4.5, -4.7). Please advise. Ana Lilia Diallo [phone]
[2022-02-28 15:00] VITALS: BP 118/54
--- NOTE | 2022-02-28 15:00 | NUR ---
PAGER ID: [phone] MESSAGE: Sneha Rowan#[phone]- pt has a critical Lactic value- 5.8 (4.2, -4.5, -4.7). Please advise. Ana Lilia Diallo [phone]
[2022-02-28] MEDS ORDERED: morphine 2 MG/ML inj. syringe IV PRN ×2 (16:00)
[2022-02-28] MEDS ORDERED: VANCOMYCIN 1,500MG in normal saline IV soln 300 ML IV ONE (16:15)
[2022-02-28] MEDS: cefepime 1GM/NS ADD-VANTAGE 100 ML IV SCH (17:41)
--- NOTE | 2022-02-28 17:50 | NUR ---
PAGER ID: [phone] MESSAGE: Sneha Rowan#[id number]- Critical finding - positive Blood culture GRAM NEGATIVE RODS - 16hrs from Left IV access, aerobic bottle. LACTIC ACID OF 4.1 thank you Ana Lilia michelle [phone]
[2022-02-28 18:00] VITALS: BP 122/63
--- NOTE | 2022-02-28 18:41 | NUR ---
PAGER ID: [phone] MESSAGE: Sneha Rowan#[id number]- Could we please CT pt's leg? She is not doing very well, appears very sick. Thank you. Lactic 4.1. Fever decreased to 99.6. from 101.3 Thank you . Ana Lilia Diallo 9033
--- NOTE | 2022-02-28 18:56 | NUR ---
Problems reprioritized. Patient report given, questions answered & plan of care reviewed with Hetal SANCHEZ.
--- NOTE | 2022-02-28 19:07 | NUR ---
Patient in room PCU 3016. I have received report from Ana Lilia SANCHEZ and had the opportunity to ask questions and assume patient care.
[2022-02-28 19:50] VITALS: BP 121/61
--- NOTE | 2022-02-28 19:50 | NUR ---
DR ERWIN NOTIFIED: LACTIC ACID REMAINS ELEVATED, DECREASED LOC. PT DOES RESPOND TO CALLING OF NAME. ORDERS OBTAINED FOR STAT CT SCAN OF RLE, ABG AND ADDITIONAL LABS.
[2022-02-28] MEDS ORDERED: iohexol 300mg/ml 100ml inj. ONE (19:58)
[2022-02-28 20:16] LABS: ABG BASE EXCESS -0.2 mmol/L (-2.0-2.0); ABG HCO3 21.8 mmol/L (22.0-26.0); ABG OXYGEN SATURATION 95.5 % (94-97); ABG PCO2 (T) 26.4 mmHg (32.0-45.0); ABG PO2 (T) 76.5 mmHg (75.0-100.0); ALLEN'S TEST POSITIVE; FCOHb 0.1 % (0.0-3.9); FLOW 2 L/min; FMetHb 0.2 % (0.0-1.5); FO2Hb 95.2 % (94-97); PATIENT TEMPERATURE 36.8; TOTAL HEMOGLOBIN 9.8 G/dl (12.0-16.0)
[2022-02-28 20:46] LABS: LACTIC SEPSIS 3.2 MMOL/L (0.4-2.0)
[2022-02-28] MEDS ORDERED: temazepam 15mg capsule PO PRN (21:00)
[2022-02-28 21:19] LABS: ALANINE AMINOTRANSFERASE 52 U/L (12-78); ALBUMIN 1.7 G/DL (3.4-5.0); ALBUMIN/GLOBULIN RATIO 0.5 (1.1-1.5); ALKALINE PHOSPHATASE 63 IU/L (46-116); ANION GAP 6 (8-16); ASPARTATE AMINO TRANSFERASE 81 U/L (10-37); BILIRUBIN,TOTAL 2.3 MG/DL (0.1-1.0); BLOOD UREA NITROGEN 20 MG/DL (7-18); BUN/CREATININE RATIO 21.7 (6.6-38.0); CALCIUM 7.1 MG/DL (8.5-10.1); CHLORIDE 110 MMOL/L (99-107); CREATININE 0.92 MG/DL (0.40-0.90); GLUCOSE 92 MG/DL (70-104); SODIUM 143 MMOL/L (135-145); TOTAL CARBON DIOXIDE 27.3 MMOL/L (24-32); TOTAL PROTEIN 5.4 G/DL (6.4-8.2); eGFR 64 ML/MIN
[2022-02-28 22:00] VITALS: BP 105/51
[2022-03-01] VITALS (7 sets, daily range): BP systolic 97–119; BP diastolic 49–74
[2022-03-01] MEDS: POTASSIUM BICARB 20meq eff tab 20 MEQ TABLET.EFF PO PRN ×2 (00:22→08:40)
[2022-03-01] MEDS: lactulose 20gm/30ml cup PO SCH ×5 (00:22→23:52)
[2022-03-01] MEDS: docusate sod 100mg capsule PO SCH ×3 (00:23→20:10)
[2022-03-01] MEDS: cefepime 1GM/NS ADD-VANTAGE 100 ML IV SCH ×3 (00:23→16:26)
[2022-03-01] MEDS: thiamine 100mg/ml 2ml inj. IV SCH ×4 (00:23→20:11)
[2022-03-01] MEDS: heparin, porcine 5000 units/ml vial SQ SCH ×4 (00:24→20:29)
[2022-03-01] MEDS: rifaximin 550mg tablet PO SCH ×3 (00:36→20:10)
[2022-03-01] MEDS ORDERED: vancomycin/NS 1 GM ADD-VANTAGE 250 ML IV SCH (01:00)
[2022-03-01] MEDS: vancomycin/NS 1 GM ADD-VANTAGE 250 ML IV SCH ×2 (05:02→17:27)
[2022-03-01] MEDS: potassium Cl 20mEq in NS 1,000 ML IV SCH ×4 (05:02→23:52)
--- NOTE | 2022-03-01 06:52 | NUR ---
Patient in room PCU 3016. I have received report from mychal SANCHEZ and had the opportunity to ask questions and assume patient care.
--- NOTE | 2022-03-01 07:00 | NUR ---
Problems reprioritized. Patient report given, questions answered & plan of care reviewed with Yolette SANCHEZ.
[2022-03-01 07:19] LABS: BASOPHILS % (AUTO) 0.5 % (0-1); EOSINOPHILS % (AUTO) 0.1 % (0-6); HEMATOCRIT 26.5 % (35.0-45.0); HEMOGLOBIN 8.9 g/dl (12.0-16.0); LYMPHOCYTES # (AUTO) 0.8 X10'3 (1.1-4.8); LYMPHOCYTES % (AUTO) 9.1 % (21-51); MEAN CORPUSCULAR HEMOGLOBIN 28.7 PG (27.0-31.0); MEAN CORPUSCULAR HGB CONC 33.4 g/dL (33.0-36.5); MEAN CORPUSCULAR VOLUME 85.9 FL (78-98); MEAN PLATELET VOLUME 8.2 FL (7.4-10.4); MONOCYTES # (AUTO) 1.2 X10'3 (0-0.9); MONOCYTES % (AUTO) 13.3 % (2-12); PLATELET COUNT 109 X10'3 (140-440); RED BLOOD COUNT 3.09 X10'6 (4.20-5.60); RED CELL DISTRIBUTION WIDTH 19.5 % (11.5-14.5); WHITE BLOOD COUNT 9.1 X10'3 (4.5-11.0)
[2022-03-01 07:43] LABS: ALANINE AMINOTRANSFERASE 48 U/L (12-78); ALBUMIN 1.6 G/DL (3.4-5.0); ALBUMIN/GLOBULIN RATIO 0.4 (1.1-1.5); ALKALINE PHOSPHATASE 59 IU/L (46-116); ANION GAP 6 (8-16); ASPARTATE AMINO TRANSFERASE 69 U/L (10-37); BILIRUBIN,TOTAL 2.1 MG/DL (0.1-1.0); BLOOD UREA NITROGEN 20 MG/DL (7-18); BUN/CREATININE RATIO 21.3 (6.6-38.0); CALCIUM 6.9 MG/DL (8.5-10.1); CHLORIDE 112 MMOL/L (99-107); CREATININE 0.94 MG/DL (0.40-0.90); GLUCOSE 98 MG/DL (70-104); POTASSIUM 3.4 MMOL/L (3.5-5.1); SODIUM 144 MMOL/L (135-145); TOTAL CARBON DIOXIDE 25.6 MMOL/L (24-32); TOTAL PROTEIN 5.2 G/DL (6.4-8.2); eGFR 63 ML/MIN
[2022-03-01] MEDS: K and/or MAG REPLACEMENT MC SCH ×2 (08:00→19:54)
[2022-03-01] MEDS: pantoprazole 40MG/NS 100ML BAG 100 ML IV SCH (08:40)
[2022-03-01] MEDS: folic acid 1mg/0.2ml inj IV SCH (08:41)
[2022-03-01] MEDS ORDERED: acetaminophen 325mg tablet PO PRN (14:05)
[2022-03-01] MEDS: piperacillin/tazo 3.375gm/50ml 50 ML IV SCH ×2 (16:28→23:52)
--- NOTE | 2022-03-01 17:52 | NUR ---
patient temp 101.2 0600, patient cannot have tylenol per allergies . sister called with regards this and stated it is not a true allergy just gets upset stomach. tylenol order therefore placed on patient. Copious amounts of stool. lactulose changed to q8hrly. patient rousable to voice mostly sleeping inbetween visitors. Temp 1700 98.7 ax.
--- NOTE | 2022-03-01 18:59 | NUR ---
Problems reprioritized. Patient report given, questions answered & plan of care reviewed with Quinton SANCHEZ.
[2022-03-02 02:00] VITALS: BP 127/84
[2022-03-02] MEDS ORDERED: LORazepam 1 MG tablet PO PRN (03:35)
[2022-03-02] MEDS ORDERED: LORazepam 2 mg/ml vial IV PRN (03:35)
[2022-03-02] MEDS ORDERED: VANCOMYCIN LEVEL IV ONE (04:30)
[2022-03-02 05:13] LABS: ALANINE AMINOTRANSFERASE 47 U/L (12-78); ALBUMIN 1.5 G/DL (3.4-5.0); ALBUMIN/GLOBULIN RATIO 0.4 (1.1-1.5); ALKALINE PHOSPHATASE 71 IU/L (46-116); ANION GAP 9 (8-16); ASPARTATE AMINO TRANSFERASE 73 U/L (10-37); BILIRUBIN,TOTAL 1.6 MG/DL (0.1-1.0); BLOOD UREA NITROGEN 14 MG/DL (7-18); BUN/CREATININE RATIO 17.5 (6.6-38.0); CALCIUM 6.8 MG/DL (8.5-10.1); CHLORIDE 111 MMOL/L (99-107); GLUCOSE 98 MG/DL (70-104); POTASSIUM 3.5 MMOL/L (3.5-5.1); SODIUM 141 MMOL/L (135-145); TOTAL CARBON DIOXIDE 21.5 MMOL/L (24-32); TOTAL PROTEIN 5.1 G/DL (6.4-8.2); VANCOMYCIN,TROUGH 10.1 UG/ML (6.0-14.0); eGFR 75 ML/MIN
[2022-03-02] MEDS: vancomycin/NS 1 GM ADD-VANTAGE 250 ML IV SCH (05:20)
[2022-03-02] MEDS: potassium Cl 20mEq in NS 1,000 ML IV SCH ×3 (05:23→19:46)
--- NOTE | 2022-03-02 05:52 | NUR ---
Did Vancomycin trough lab draw at 04:40 AM, it was 10 (Therapeutic), Vancomycin IV is running now per MD order.
[2022-03-02 06:00] VITALS: BP 133/82
[2022-03-02 07:13] LABS: BASOPHILS # (AUTO) 0.1 X10'3 (0-0.2); BASOPHILS % (AUTO) 0.7 % (0-1); EOSINOPHILS # (AUTO) 0.3 X10'3 (0-0.9); EOSINOPHILS % (AUTO) 4.3 % (0-6); HEMATOCRIT 27.5 % (35.0-45.0); HEMOGLOBIN 8.7 g/dl (12.0-16.0); LYMPHOCYTES # (AUTO) 1.3 X10'3 (1.1-4.8); LYMPHOCYTES % (AUTO) 16.7 % (21-51); MEAN CORPUSCULAR HEMOGLOBIN 27.6 PG (27.0-31.0); MEAN CORPUSCULAR HGB CONC 31.6 g/dL (33.0-36.5); MEAN CORPUSCULAR VOLUME 87.4 FL (78-98); MEAN PLATELET VOLUME 8.8 FL (7.4-10.4); MONOCYTES # (AUTO) 1.4 X10'3 (0-0.9); MONOCYTES % (AUTO) 18.4 % (2-12); NEUTROPHILS # (AUTO) 4.7 X10'3 (1.8-7.7); NEUTROPHILS % (AUTO) 59.9 % (42-75); PLATELET COUNT 109 X10'3 (140-440); RED BLOOD COUNT 3.14 X10'6 (4.20-5.60); RED CELL DISTRIBUTION WIDTH 20.1 % (11.5-14.5); WHITE BLOOD COUNT 7.8 X10'3 (4.5-11.0)
[2022-03-02] MEDS: docusate sod 100mg capsule PO SCH ×3 (08:00→19:43)
[2022-03-02] MEDS: thiamine 100mg/ml 2ml inj. IV SCH ×3 (08:50→21:53)
[2022-03-02] MEDS: pantoprazole 40MG/NS 100ML BAG 100 ML IV SCH (08:51)
[2022-03-02] MEDS: rifaximin 550mg tablet PO SCH ×2 (08:51→19:43)
[2022-03-02] MEDS: lactulose 20gm/30ml cup PO SCH ×2 (08:51→16:00)
[2022-03-02] MEDS: folic acid 1mg/0.2ml inj IV SCH (08:51)
[2022-03-02] MEDS: heparin, porcine 5000 units/ml vial SQ SCH ×2 (08:51→19:44)
[2022-03-02] MEDS: piperacillin/tazo 3.375gm/50ml 50 ML IV SCH (08:56)
[2022-03-02 10:04] LABS: TOTAL CELLS COUNTED 100
[2022-03-02 10:05] LABS: ANISOCYTOSIS 3+; ELLIPTOCYTES FEW; PLATELET ESTIMATE DECREASED; TEAR DROP CELLS FEW
--- NOTE | 2022-03-02 13:12 | NUR ---
PRESSURE ULCER EDUCATION: DEFINITION: A pressure ulcer is an area of skin that breaks down when you stay in one position too long. The constant pressure against the skin reduces the blood flow to that area and the affected tissue dies. CAUSES: "Being bedridden or in a wheelchair "Fragile skin "Having a chronic condition, such as diabetes or vascular disease "Inability to move certain parts of your body without assistance "Older age "Incontinence of urine or stool SYMPTOMS: "A reddened area that DOES NOT turn white when pressed on - this can be the beginning of a pressure ulcer "A blister, deep sore or a crater - these can be advanced pressure ulcers FIRST AID: "Relieve the pressure on this area "Keep the area clean and dry "Call your primary doctor if you see any of the above symptoms "DO NOT massage the area "DO NOT use a donut shaped or ring shaped pillow- these actually interfere with the blood flow and cause complications PREVENTION: "Check for pressure ulcers everyday "Change position at least every two hours to relieve pressure "Use items that help relieve pressure- pillows, sheepskin, foam padding, and powders. "Keep skin clean and dry "Eat healthy well balanced meals "Exercise daily IF YOU SEE ANY OF THESE SYMPTOMS WHILE IN THE HOSPITAL - TELL YOUR NURSE IMMEDIATELY. IF YOU SEE ANY OF THESE SYMPTOMS WHILE AT HOME OR HAVE ANY QUESTIONS OR CONCERNS ABOUT PRESSURE ULCERS - CALL YOUR PRIMARY DOCTOR IMMEDIATELY. Addendum: 03/02/22 at 1312 by Rachell Malloy LVN Amended: Links added.
[2022-03-02 15:00] VITALS: BP 127/78
[2022-03-02] MEDS: clindamycin-Cleocin 900mg/D5W 50 ML IV SCH ×2 (16:00→17:50)
[2022-03-02] MEDS: ceFAZolin/D5W- 1GM premix 50 ML IV SCH ×2 (16:00→17:50)
[2022-03-02 18:00] VITALS: BP 140/92
[2022-03-02] MEDS: K and/or MAG REPLACEMENT MC SCH ×2 (19:30→20:00)
[2022-03-02 22:00] VITALS: BP 108/72
[2022-03-03] MEDS ORDERED: VANCOMYCIN LEVEL IV ONE (00:30)
[2022-03-03] MEDS: lactulose 20gm/30ml cup PO SCH ×3 (00:42→16:00)
[2022-03-03] MEDS: ceFAZolin/D5W- 1GM premix 50 ML IV SCH ×3 (00:42→15:55)
[2022-03-03] MEDS: clindamycin-Cleocin 900mg/D5W 50 ML IV SCH ×3 (00:51→15:56)
[2022-03-03 02:00] VITALS: BP 106/68
[2022-03-03] MEDS: potassium Cl 20mEq in NS 1,000 ML IV SCH ×3 (04:22→16:05)
[2022-03-03 07:03] LABS: BASOPHILS # (AUTO) 0.1 X10'3 (0-0.2); BASOPHILS % (AUTO) 0.7 % (0-1); EOSINOPHILS # (AUTO) 0.4 X10'3 (0-0.9); EOSINOPHILS % (AUTO) 5.6 % (0-6); HEMATOCRIT 26.9 % (35.0-45.0); HEMOGLOBIN 8.6 g/dl (12.0-16.0); LYMPHOCYTES # (AUTO) 1.2 X10'3 (1.1-4.8); LYMPHOCYTES % (AUTO) 16.9 % (21-51); MEAN CORPUSCULAR HEMOGLOBIN 27.7 PG (27.0-31.0); MEAN CORPUSCULAR VOLUME 86.4 FL (78-98); MEAN PLATELET VOLUME 8.6 FL (7.4-10.4); MONOCYTES # (AUTO) 1.4 X10'3 (0-0.9); MONOCYTES % (AUTO) 18.6 % (2-12); NEUTROPHILS # (AUTO) 4.3 X10'3 (1.8-7.7); NEUTROPHILS % (AUTO) 58.2 % (42-75); PLATELET COUNT 97 X10'3 (140-440); RED BLOOD COUNT 3.11 X10'6 (4.20-5.60); WHITE BLOOD COUNT 7.4 X10'3 (4.5-11.0)
[2022-03-03 07:10] VITALS: BP 114/68
[2022-03-03 07:28] LABS: ALANINE AMINOTRANSFERASE 45 U/L (12-78); ALBUMIN 1.6 G/DL (3.4-5.0); ALBUMIN/GLOBULIN RATIO 0.5 (1.1-1.5); ALKALINE PHOSPHATASE 69 IU/L (46-116); ANION GAP 7 (8-16); ASPARTATE AMINO TRANSFERASE 60 U/L (10-37); BILIRUBIN,TOTAL 1.9 MG/DL (0.1-1.0); BLOOD UREA NITROGEN 11 MG/DL (7-18); BUN/CREATININE RATIO 15.5 (6.6-38.0); CALCIUM 7.1 MG/DL (8.5-10.1); CHLORIDE 111 MMOL/L (99-107); CREATININE 0.71 MG/DL (0.40-0.90); GLUCOSE 86 MG/DL (70-104); POTASSIUM 3.2 MMOL/L (3.5-5.1); SODIUM 140 MMOL/L (135-145); TOTAL CARBON DIOXIDE 21.7 MMOL/L (24-32); eGFR 86 ML/MIN
[2022-03-03] MEDS: heparin, porcine 5000 units/ml vial SQ SCH ×2 (08:00→20:00)
[2022-03-03] MEDS: K and/or MAG REPLACEMENT MC SCH ×2 (08:00→20:48)
[2022-03-03] MEDS: docusate sod 100mg capsule PO SCH ×2 (08:00→20:14)
[2022-03-03] MEDS: rifaximin 550mg tablet PO SCH ×2 (08:18→20:14)
[2022-03-03] MEDS: pantoprazole 40MG/NS 100ML BAG 100 ML IV SCH (08:19)
[2022-03-03 11:01] VITALS: BP 121/68
--- NOTE | 2022-03-03 11:32 | NUR ---
Met with patient in regards to substance use and to see if patient wanted resources for treatment options. Patient wants resources for outpatient services only because she can't go to an inpatient rehab unless she can take her cats and her . I explained to the patient that I don't know any inpatient that can accommodate what she is asking for, so I gave her a list of outpatient facilities and my card to call me with any questions.
--- NOTE | 2022-03-03 13:36 | NUR ---
PAGER ID: [phone] MESSAGE: [id number] K+ 3.2 would you like replacement protocol ordered? thank you! [phone]
[2022-03-03] MEDS ORDERED: magnesium 4gm in 100ml NS 100 ML IV PRN (13:50)
[2022-03-03] MEDS ORDERED: POTASSIUM BICARB 20meq eff tab 20 MEQ TABLET.EFF PO PRN (13:50)
[2022-03-03] MEDS ORDERED: magnesium 2GM in 50ml NS 50 ML IV PRN (13:50)
[2022-03-03] MEDS ORDERED: potassium CL 10mEq/100ml bag 100 ML IV PRN (13:50)
[2022-03-03] MEDS ORDERED: magnesium Cl slow-release 64mg tablet PO PRN (13:50)
[2022-03-03 14:33] LABS: MAGNESIUM 1.3 MG/DL (1.5-2.4)
[2022-03-03 15:00] VITALS: BP 112/69
--- NOTE | 2022-03-03 16:32 | NUR ---
PAGER ID: [phone] MESSAGE: [id number] Soy Rowan: patient is requesting a regular diet. is there a reason she needs to stay on fulls? thanks kevin [phone]
[2022-03-03 18:00] VITALS: BP 107/67
--- NOTE | 2022-03-03 18:19 | NUR ---
Problems reprioritized. Patient report given, questions answered & plan of care reviewed with DANIEL Lloyd.
--- NOTE | 2022-03-03 18:23 | NUR ---
Patient in room PCU 3012E. I have received report from Breann SANCHEZ and had the opportunity to ask questions and assume patient care. Pt sitting up on side of bed. Tab alarm on, alarm sound audiable. Pt declines any c/o pain at this time. Pt on RA. No s/s of distress. Day shift nurse stated PT ripped out her piv and day shift nurse did not attempt to place a second one. Pt states iv site is ok. No c/o pain. Pt states she is ok with placing another piv later in the shift. BLL, call light within reach, frequently useditems inreach, frequent rounding, jowl trimmer socks on, tabs alarm on and activated. Will continue to monitor.
--- NOTE | 2022-03-03 20:47 | NUR ---
Dr. Wilkinson notified of Pts PLTs of 97. said to hold 2000 dose of heparin.
[2022-03-03 22:00] VITALS: BP 113/63
--- NOTE | 2022-03-04 00:34 | NUR ---
Three nurses unsuccessful in placing new PIV. Will ask CRN. Pt tolerating well. No c/o pain to the sites. BLL, call, light within reach, frequently used items in reach, frequent rounding. Will continue to monitor. Addendum: 03/04/22 at 0113 by Prema Manzo RN CRN placed 18G piv in REJ. Flushes well. No s/s of infiltration, or c/o pain st the site.
[2022-03-04] MEDS: lactulose 20gm/30ml cup PO SCH ×3 (00:39→16:00)
[2022-03-04] MEDS: ceFAZolin/D5W- 1GM premix 50 ML IV SCH ×2 (01:33→10:15)
[2022-03-04 02:00] VITALS: BP 120/60
[2022-03-04] MEDS: clindamycin-Cleocin 900mg/D5W 50 ML IV SCH ×2 (02:18→09:09)
[2022-03-04] MEDS ORDERED: LORazepam 2 mg/ml vial IV PRN (03:35)
[2022-03-04] MEDS ORDERED: LORazepam 1 MG tablet PO PRN (03:35)
[2022-03-04 06:00] VITALS: BP 124/65
--- NOTE | 2022-03-04 06:47 | NUR ---
Problems reprioritized. Patient report given, questions answered & plan of care reviewed with Tati SANCHEZ.
[2022-03-04] MEDS ORDERED: thiamine 100mg tablet PO SCH (08:00)
[2022-03-04] MEDS ORDERED: folic acid 1mg tablet PO SCH (08:00)
[2022-03-04] MEDS ORDERED: spironolactone 25 MG tablet PO SCH (08:30)
[2022-03-04] MEDS: docusate sod 100mg capsule PO SCH (09:15)
[2022-03-04] MEDS: rifaximin 550mg tablet PO SCH (09:15)
[2022-03-04] MEDS: heparin, porcine 5000 units/ml vial SQ SCH (09:23)
[2022-03-04 09:30] LABS: BASOPHILS # (AUTO) 0.1 X10'3 (0-0.2); BASOPHILS % (AUTO) 0.8 % (0-1); EOSINOPHILS # (AUTO) 0.6 X10'3 (0-0.9); EOSINOPHILS % (AUTO) 6.8 % (0-6); HEMATOCRIT 26.4 % (35.0-45.0); HEMOGLOBIN 8.5 g/dl (12.0-16.0); LYMPHOCYTES # (AUTO) 1.5 X10'3 (1.1-4.8); LYMPHOCYTES % (AUTO) 18.4 % (21-51); MEAN CORPUSCULAR HEMOGLOBIN 28.1 PG (27.0-31.0); MEAN CORPUSCULAR HGB CONC 32.3 g/dL (33.0-36.5); MEAN CORPUSCULAR VOLUME 87.2 FL (78-98); MEAN PLATELET VOLUME 8.3 FL (7.4-10.4); MONOCYTES # (AUTO) 1.3 X10'3 (0-0.9); MONOCYTES % (AUTO) 15.6 % (2-12); NEUTROPHILS # (AUTO) 4.8 X10'3 (1.8-7.7); NEUTROPHILS % (AUTO) 58.4 % (42-75); PLATELET COUNT 111 X10'3 (140-440); RED BLOOD COUNT 3.03 X10'6 (4.20-5.60); RED CELL DISTRIBUTION WIDTH 19.9 % (11.5-14.5); WHITE BLOOD COUNT 8.2 X10'3 (4.5-11.0)
[2022-03-04] MEDS: K and/or MAG REPLACEMENT MC SCH (09:30)
--- NOTE | 2022-03-04 09:45 | NUR ---
Dr Antony at bedside, verbal order to mahsa medeiros
[2022-03-04 09:46] LABS: ALANINE AMINOTRANSFERASE 44 U/L (12-78); ALBUMIN 1.6 G/DL (3.4-5.0); ALBUMIN/GLOBULIN RATIO 0.4 (1.1-1.5); ALKALINE PHOSPHATASE 82 IU/L (46-116); ANION GAP 10 (8-16); ASPARTATE AMINO TRANSFERASE 55 U/L (10-37); BILIRUBIN,TOTAL 1.6 MG/DL (0.1-1.0); BLOOD UREA NITROGEN 9 MG/DL (7-18); BUN/CREATININE RATIO 12.7 (6.6-38.0); CALCIUM 7.1 MG/DL (8.5-10.1); CHLORIDE 108 MMOL/L (99-107); CREATININE 0.71 MG/DL (0.40-0.90); GLUCOSE 102 MG/DL (70-104); MAGNESIUM 1.2 MG/DL (1.5-2.4); SODIUM 138 MMOL/L (135-145); TOTAL CARBON DIOXIDE 20.2 MMOL/L (24-32); TOTAL PROTEIN 5.3 G/DL (6.4-8.2); eGFR 86 ML/MIN
[2022-03-04 09:49] LABS: POTASSIUM 2.8 MMOL/L (3.5-5.1)
[2022-03-04] MEDS: POTASSIUM BICARB 20meq eff tab 20 MEQ TABLET.EFF PO PRN ×2 (10:06→14:00)
--- NOTE | 2022-03-04 10:12 | NUR ---
PAGER ID: [phone] MESSAGE: [id number] Harpal Machado+ 2.8 replace started 40meq po, pt states she doesn't take lactulose as often. Her ammonia has been lower [id number] Tati
[2022-03-04 10:17] VITALS: BP 133/76
[2022-03-04] MEDS ORDERED: CEPH500C2 PO (10:34)
[2022-03-04] MEDS: pantoprazole 40MG/NS 100ML BAG 100 ML IV SCH (10:49)
[2022-03-04 14:30] VITALS: BP 127/68
--- NOTE | 2022-03-04 15:25 | NUR ---
PAGER ID: [phone] MESSAGE: [id number] a Arbo K+ 2.8 40meq x 2 doses Mag 1.2 slow mag given. Still ok to dc home today? RAMONA [id number]
--- NOTE | 2022-03-04 16:13 | NUR ---
per MD give final dose of K+ po and IV mag 2gm prior to dc home.
== END 2022-03-04 17:20 | disposition home or self-care (01) | DRG 720 ==
LOC: ER 00:20 → ED HOLD 03:43 → EDBEDREQ 05:09 → PCU 3S 10:34
PROVIDERS: ADMIT Family Medicine; ATTEND Internal Medicine
DX: A41.51 Sepsis due to Escherichia coli [E. coli] (principal); I21.A1 Myocardial infarction type 2; G93.41 Metabolic encephalopathy; N17.9 Acute kidney failure, unspecified; D69.6 Thrombocytopenia, unspecified; G03.9 Meningitis, unspecified; K76.82 Hepatic encephalopathy; D64.9 Anemia, unspecified; Z20.822 Contact with and (suspected) exposure to COVID-19; E66.01 Morbid (severe) obesity due to excess calories; Z68.25 Body mass index [BMI] 25.0-25.9, adult; E83.42 Hypomagnesemia; E87.6 Hypokalemia; F10.229 Alcohol dependence with intoxication, unspecified; F15.129 Other stimulant abuse with intoxication, unspecified; F17.200 Nicotine dependence, unspecified, uncomplicated; I50.22 Chronic systolic (congestive) heart failure; K70.31 Alcoholic cirrhosis of liver with ascites; L03.115 Cellulitis of right lower limb; L03.116 Cellulitis of left lower limb; N18.9 Chronic kidney disease, unspecified; N20.0 Calculus of kidney; N39.0 Urinary tract infection, site not specified; Z88.9 Allergy status to unspecified drugs, medicaments and biological substances; Z90.710 Acquired absence of both cervix and uterus
CPT/HCPCS: 36415; 36600; 70450; 71045; 73701; 80048; 80053; 80202; 80305; 80320; 81001; 82140; 82803; 83605; 83690; 83735; 83880; 84100; 84132; 84145; 84484; 85007; 85018; 85025; 85610; 85651; 85730; 87040; 87077; 87081; 87088; 87186; 87635; 93306; 97116; 97161; 97530; 99291; A4615; A5200; A6223; A6250; A6253; A6258; A6446; A6449; C1758; C9113; G0378; J0690; J0692; J0696; J1644; J2060; J2543; J3370; J3411; J3475; J3480; J3490; J7030; J7040; Q9967

== ENCOUNTER 2022-03-24 18:00 | Inpatient (IN) | payer MEDICAID ==
[~2022-03-24] VITALS: Ht 154.9 cm; Wt 69.1 kg
[2022-03-24 21:33] LABS: BASOPHILS # (AUTO) 0.1 X10'3 (0-0.2); BASOPHILS % (AUTO) 1.2 % (0-1); EOSINOPHILS # (AUTO) 0.2 X10'3 (0-0.9); EOSINOPHILS % (AUTO) 2.6 % (0-6); LYMPHOCYTES # (AUTO) 1.8 X10'3 (1.1-4.8); LYMPHOCYTES % (AUTO) 23.2 % (21-51); MEAN CORPUSCULAR HEMOGLOBIN 26.8 PG (27.0-31.0); MEAN CORPUSCULAR HGB CONC 31.1 g/dL (33.0-36.5); MEAN CORPUSCULAR VOLUME 86.1 FL (78-98); MONOCYTES # (AUTO) 0.9 X10'3 (0-0.9); MONOCYTES % (AUTO) 11.7 % (2-12); NEUTROPHILS # (AUTO) 4.6 X10'3 (1.8-7.7); NEUTROPHILS % (AUTO) 61.3 % (42-75); PLATELET COUNT 214 X10'3 (140-440); RED CELL DISTRIBUTION WIDTH 22.1 % (11.5-14.5); WHITE BLOOD COUNT 7.5 X10'3 (4.5-11.0)
[2022-03-24 21:35] LABS: HEMATOCRIT 21.5 % (35.0-45.0); HEMOGLOBIN 6.7 g/dl (12.0-16.0)
[2022-03-24 21:43] LABS: ALANINE AMINOTRANSFERASE 41 U/L (12-78); ALBUMIN 1.8 G/DL (3.4-5.0); ALBUMIN/GLOBULIN RATIO 0.3 (1.1-1.5); ALKALINE PHOSPHATASE 119 IU/L (46-116); ANION GAP 6 (8-16); ASPARTATE AMINO TRANSFERASE 39 U/L (10-37); BILIRUBIN,TOTAL 2.5 MG/DL (0.1-1.0); BLOOD UREA NITROGEN 13 MG/DL (7-18); BUN/CREATININE RATIO 13.8 (6.6-38.0); CHLORIDE 100 MMOL/L (99-107); CREATININE 0.94 MG/DL (0.40-0.90); SODIUM 136 MMOL/L (135-145); TOTAL CARBON DIOXIDE 30.4 MMOL/L (24-32); TOTAL PROTEIN 7.1 G/DL (6.4-8.2); eGFR 63 ML/MIN
[2022-03-24 21:48] LABS: POTASSIUM 2.6 MMOL/L (3.5-5.1)
[2022-03-24 21:51] LABS: GLUCOSE 109 MG/DL (70-104)
[2022-03-24] MEDS ORDERED: magnesium 2GM in 50ml NS 50 ML IV ONE (22:15)
[2022-03-24] MEDS ORDERED: POTASSIUM BICARB 20meq eff tab 20 MEQ TABLET.EFF PO ONE (22:15)
[2022-03-24 22:22] LABS: ANISOCYTOSIS 3+; PLATELET ESTIMATE NORMAL
[2022-03-24 22:23] LABS: ELLIPTOCYTES FEW; POLYCHROMASIA 1+; TARGET CELLS FEW
[2022-03-24 23:05] VITALS: BP 122/70
[2022-03-24 23:17] LABS: BILIRUBIN,DIRECT 1.6 MG/DL (0-0.3)
[2022-03-24] MEDS: potassium Cl 10 mEq/100mL bag IV SCH (23:28)
[2022-03-24] MEDS ORDERED: HYDROcodone/acetaminophen 5mg/325mg tablet PO ONE (23:30)
[2022-03-24] MEDS ORDERED: furosemide 10 MG/1 ML 10ml inj IV ONE (23:50)
[2022-03-24] MEDS ORDERED: furosemide 20 MG/2 ML vial IV ONE (23:55)
[2022-03-25] VITALS (7 sets, daily range): BP systolic 110–142; BP diastolic 60–86
[2022-03-25] MEDS ORDERED: magnesium Cl slow-release 64mg tablet PO PRN (00:05)
[2022-03-25] MEDS ORDERED: potassium Cl 40MEQ/1/2NS 520ml 520 ML IV PRN (00:05)
[2022-03-25] MEDS ORDERED: ondansetron/PF 4mg/2ml inj IV PRN (00:05)
[2022-03-25] MEDS ORDERED: magnesium 4gm in 100ml NS 100 ML IV PRN (00:05)
[2022-03-25] MEDS: potassium Cl 10 mEq/100mL bag IV SCH (00:51)
[2022-03-25] MEDS ORDERED: DOXY100T2 PO (02:02)
[2022-03-25] MEDS ORDERED: DOCU-345 PO (02:02)
[2022-03-25 07:27] LABS: BASOPHILS # (AUTO) 0.1 X10'3 (0-0.2); BASOPHILS % (AUTO) 1.2 % (0-1); EOSINOPHILS # (AUTO) 0.2 X10'3 (0-0.9); EOSINOPHILS % (AUTO) 2.3 % (0-6); HEMATOCRIT 22.7 % (35.0-45.0); HEMOGLOBIN 7.4 g/dl (12.0-16.0); LYMPHOCYTES # (AUTO) 1.3 X10'3 (1.1-4.8); LYMPHOCYTES % (AUTO) 18.9 % (21-51); MEAN CORPUSCULAR HEMOGLOBIN 27.9 PG (27.0-31.0); MEAN CORPUSCULAR HGB CONC 32.7 g/dL (33.0-36.5); MEAN CORPUSCULAR VOLUME 85.5 FL (78-98); MEAN PLATELET VOLUME 7.9 FL (7.4-10.4); MONOCYTES # (AUTO) 0.9 X10'3 (0-0.9); MONOCYTES % (AUTO) 13.4 % (2-12); NEUTROPHILS # (AUTO) 4.3 X10'3 (1.8-7.7); NEUTROPHILS % (AUTO) 64.2 % (42-75); PLATELET COUNT 167 X10'3 (140-440); RED BLOOD COUNT 2.66 X10'6 (4.20-5.60); RED CELL DISTRIBUTION WIDTH 18.7 % (11.5-14.5); WHITE BLOOD COUNT 6.7 X10'3 (4.5-11.0)
[2022-03-25] MEDS: K and/or MAG REPLACEMENT MC SCH ×2 (08:00→20:00)
[2022-03-25 08:25] LABS: MAGNESIUM 1.9 MG/DL (1.5-2.4)
--- NOTE | 2022-03-25 09:01 | NUR ---
Pt is awake and alert. Spouse at the bedside. Pt c/o back pain. Using purwick for voiding.
[2022-03-25] MEDS ORDERED: NO HOME MEDS (09:20)
[2022-03-25] MEDS ORDERED: pneumococcal 23-VAL P-sac vacc 25 mcg/0.5ml vial IMVAC ONE (09:30)
[2022-03-25] MEDS ORDERED: FLU VACC QS2022-23(6MOS UP)/PF 60 MCG/0.5 ML SYRINGE IMVAC ONE (09:30)
[2022-03-25 09:33] LABS: ALANINE AMINOTRANSFERASE 35 U/L (12-78); ALBUMIN 1.6 G/DL (3.4-5.0); ALBUMIN/GLOBULIN RATIO 0.3 (1.1-1.5); ALKALINE PHOSPHATASE 114 IU/L (46-116); ANION GAP 6 (8-16); ASPARTATE AMINO TRANSFERASE 36 U/L (10-37); BILIRUBIN,TOTAL 3.8 MG/DL (0.1-1.0); BLOOD UREA NITROGEN 11 MG/DL (7-18); BUN/CREATININE RATIO 15.5 (6.6-38.0); CALCIUM 7.4 MG/DL (8.5-10.1); CHLORIDE 103 MMOL/L (99-107); CREATININE 0.71 MG/DL (0.40-0.90); POTASSIUM 3.5 MMOL/L (3.5-5.1); SODIUM 136 MMOL/L (135-145); TOTAL CARBON DIOXIDE 27.4 MMOL/L (24-32); TOTAL PROTEIN 6.4 G/DL (6.4-8.2); eGFR 86 ML/MIN
[2022-03-25] MEDS ORDERED: furosemide 20 MG/2 ML vial IV ONE (09:35)
[2022-03-25 09:39] LABS: GLUCOSE 108 MG/DL (70-104)
[2022-03-25] MEDS ORDERED: LORazepam 2 mg/ml vial IV PRN (10:15)
[2022-03-25] MEDS ORDERED: LORazepam 1 MG tablet PO PRN (10:15)
[2022-03-25 11:03] LABS: CHOL/HDL RATIO 3.2 (0.00-4.99); CHOLESTEROL 74 MG/DL (0-200); HDL CHOLESTEROL 23 MG/DL (35-60); LDL CHOLESTEROL 51 MG/DL (50-100); TRIGLYCERIDES 50 MG/DL (20-135)
[2022-03-25 11:11] LABS: APTT 31 SECONDS (22-32)
[2022-03-25 11:18] LABS: HEMOGLOBIN A1C 4.4 % (4.5-6.2)
--- NOTE | 2022-03-25 12:57 | NUR ---
Patient in room ED 12. I have received report from nate caldwell and had the opportunity to ask questions and assume patient care.
--- NOTE | 2022-03-25 13:10 | NUR ---
Received order for consult. Met with patient in regards to substance/alcohol use and to see if patient wanted any resources for treatment options. Patient declined resources.
--- NOTE | 2022-03-25 13:27 | NUR ---
per wound care, stated to unwrap pts wounds put Xeroform on anything open then kirlex over the rest. will be seeing pt in the AM.
--- NOTE | 2022-03-25 15:28 | NUR ---
Page Sent PAGER ID: [phone] MESSAGE: [id number] b Harpal, do you want to do a culture swab on the pts oozing abscess wounds bilaterally. she has a history of mrsa abscess. cesar [phone]
[2022-03-25] MEDS ORDERED: ceFAZolin/D5W- 1GM premix 50 ML IV SCH (16:00)
--- NOTE | 2022-03-25 17:03 | NUR ---
Page Sent promotional table spacer PAGER ID: [phone] MESSAGE: [id number] Arbo Patient complaint of pain. Have no order for pain medications. Can I order Diboll 5/325 mg. Thank you Lizette ROSE
[2022-03-25] MEDS: vancomycin/NS 1 GM ADD-VANTAGE 250 ML IV SCH (17:13)
--- NOTE | 2022-03-25 18:02 | NUR ---
Page Sent promotional table spacer PAGER ID: [phone] MESSAGE: [id number] a, Harpal, can I order norco 5 for pt she had pain during dressing change and due to wounds. thanks, cesar suggs
[2022-03-25] MEDS ORDERED: HYDROcodone/acetaminophen 5mg/325mg tablet PO PRN (18:20)
--- NOTE | 2022-03-25 18:29 | NUR ---
Problems reprioritized. Patient report given, questions answered & plan of care reviewed with Edna SANCHEZ.
[2022-03-25] MEDS: furosemide 20 MG/2 ML vial IV SCH (19:30)
[2022-03-25] MEDS: buPROPion 75mg tablet PO SCH (19:30)
[2022-03-25] MEDS: HYDROcodone/acetaminophen 10/325mg tab PO PRN (19:31)
[2022-03-26 02:00] VITALS: BP 115/46
[2022-03-26] MEDS: vancomycin/NS 1 GM ADD-VANTAGE 250 ML IV SCH ×2 (03:46→16:42)
[2022-03-26 06:00] VITALS: BP 111/81
[2022-03-26 06:13] LABS: EOSINOPHILS # (AUTO) 0.1 X10'3 (0-0.9); EOSINOPHILS % (AUTO) 1.3 % (0-6); MEAN PLATELET VOLUME 7.8 FL (7.4-10.4); PLATELET COUNT 208 X10'3 (140-440); RED CELL DISTRIBUTION WIDTH 18.8 % (11.5-14.5)
[2022-03-26 06:16] LABS: BASOPHILS # (AUTO) 0.1 X10'3 (0-0.2); BASOPHILS % (AUTO) 0.7 % (0-1); HEMATOCRIT 29.7 % (35.0-45.0); HEMOGLOBIN 9.8 g/dl (12.0-16.0); LYMPHOCYTES # (AUTO) 1.5 X10'3 (1.1-4.8); LYMPHOCYTES % (AUTO) 17.2 % (21-51); MEAN CORPUSCULAR HGB CONC 32.8 g/dL (33.0-36.5); MEAN CORPUSCULAR VOLUME 85.3 FL (78-98); MONOCYTES % (AUTO) 11.6 % (2-12); NEUTROPHILS # (AUTO) 5.8 X10'3 (1.8-7.7); NEUTROPHILS % (AUTO) 69.2 % (42-75); RED BLOOD COUNT 3.48 X10'6 (4.20-5.60); WHITE BLOOD COUNT 8.4 X10'3 (4.5-11.0)
[2022-03-26 06:26] LABS: ALBUMIN 1.6 G/DL (3.4-5.0); ANION GAP 4 (8-16); BLOOD UREA NITROGEN 10 MG/DL (7-18); BUN/CREATININE RATIO 11.4 (6.6-38.0); CALCIUM 7.5 MG/DL (8.5-10.1); CHLORIDE 103 MMOL/L (99-107); CREATININE 0.88 MG/DL (0.40-0.90); MAGNESIUM 1.6 MG/DL (1.5-2.4); POTASSIUM 3.1 MMOL/L (3.5-5.1); SODIUM 137 MMOL/L (135-145); eGFR 67 ML/MIN
[2022-03-26 06:28] LABS: GLUCOSE 95 MG/DL (70-104)
--- NOTE | 2022-03-26 06:47 | NUR ---
Patient in room PCU 3022. I have received report from Aarti SANCHEZ and had the opportunity to ask questions and assume patient care. Pt is laying supine in bed. Pt appears to be resting comfortably. No s/s of distress. No s/s of pain. Pt on RA. No s/s of distress. Pt has family member sleeping in chair at bedside. BLL, call light within reach, frequently used items in reach, counselor at law socks on, will continue to monitor.
[2022-03-26 07:52] LABS: ANISOCYTOSIS 2+; ELLIPTOCYTES FEW; HYPOCHROMASIA 1+; PLATELET ESTIMATE NORMAL; POLYCHROMASIA 2+; TARGET CELLS FEW
[2022-03-26] MEDS: K and/or MAG REPLACEMENT MC SCH ×2 (08:00→20:06)
[2022-03-26] MEDS: potassium Cl 20 mEq SR tablet PO PRN ×3 (08:21→20:06)
[2022-03-26] MEDS: furosemide 20 MG/2 ML vial IV SCH ×2 (08:22→20:05)
[2022-03-26] MEDS: buPROPion 75mg tablet PO SCH ×2 (08:22→20:06)
[2022-03-26 10:00] VITALS: BP 134/80
[2022-03-26] MEDS: naltrexone 50mg tablet PO SCH (10:41)
[2022-03-26] MEDS: HYDROcodone/acetaminophen 10/325mg tab PO PRN (12:23)
--- NOTE | 2022-03-26 14:09 | NUR ---
DIABETIC FOOT CARE EDUCATION PROVIDED BY WOUND CARE * Wash your feet daily with lukewarm water and soap. * Dry your feet well, especially between the toes. * Keep the skin moisturized with lotion, but do not apply it between the toes. * Check your feet for blisters, cuts or sores. * Use an emery board to shape your toenails even with the ends of your toes. * Change daily into clean, soft socks or stockings, not too big or too small. * Keep your feet warm and dry. * Preferably wear special padded socks and shoes that fit well. * Never walk barefoot indoors or outdoors. * Examine your shoes everyday for cracks, smitha, nails or anything that could hurt your feet. * Tell your doctor if you find any of these problems or have any concerns after examining your feet. Addendum: 03/26/22 at 1412 by Vida Obregon RN Amended: Links added.
--- NOTE | 2022-03-26 14:11 | NUR ---
PRESSURE ULCER EDUCATION: DEFINITION: A pressure ulcer is an area of skin that breaks down when you stay in one position too long. The constant pressure against the skin reduces the blood flow to that area and the affected tissue dies. CAUSES: "Being bedridden or in a wheelchair "Fragile skin "Having a chronic condition, such as diabetes or vascular disease "Inability to move certain parts of your body without assistance "Older age "Incontinence of urine or stool SYMPTOMS: "A reddened area that DOES NOT turn white when pressed on - this can be the beginning of a pressure ulcer "A blister, deep sore or a crater - these can be advanced pressure ulcers FIRST AID: "Relieve the pressure on this area "Keep the area clean and dry "Call your primary doctor if you see any of the above symptoms "DO NOT massage the area "DO NOT use a donut shaped or ring shaped pillow- these actually interfere with the blood flow and cause complications PREVENTION: "Check for pressure ulcers everyday "Change position at least every two hours to relieve pressure "Use items that help relieve pressure- pillows, sheepskin, foam padding, and powders. "Keep skin clean and dry "Eat healthy well balanced meals "Exercise daily IF YOU SEE ANY OF THESE SYMPTOMS WHILE IN THE HOSPITAL - TELL YOUR NURSE IMMEDIATELY. IF YOU SEE ANY OF THESE SYMPTOMS WHILE AT HOME OR HAVE ANY QUESTIONS OR CONCERNS ABOUT PRESSURE ULCERS - CALL YOUR PRIMARY DOCTOR IMMEDIATELY. Addendum: 03/26/22 at 1412 by Vida Obregon RN Amended: Links added.
[2022-03-26 18:00] VITALS: BP 132/69
--- NOTE | 2022-03-26 18:37 | NUR ---
Problems reprioritized. Patient report given, questions answered & plan of care reviewed with Aarti SANCHEZ.
[2022-03-26 22:00] VITALS: BP 91/42
[2022-03-27 02:00] VITALS: BP 123/58
[2022-03-27] MEDS ORDERED: VANCOMYCIN LEVEL IV ONE (03:30)
[2022-03-27] MEDS: vancomycin/NS 1 GM ADD-VANTAGE 250 ML IV SCH (04:07)
[2022-03-27 04:08] LABS: BASOPHILS # (AUTO) 0.1 X10'3 (0-0.2); EOSINOPHILS # (AUTO) 0.1 X10'3 (0-0.9); EOSINOPHILS % (AUTO) 1.2 % (0-6); HEMOGLOBIN 8.4 g/dl (12.0-16.0); LYMPHOCYTES # (AUTO) 1.7 X10'3 (1.1-4.8); LYMPHOCYTES % (AUTO) 17.3 % (21-51); MEAN CORPUSCULAR HEMOGLOBIN 27.5 PG (27.0-31.0); MEAN CORPUSCULAR HGB CONC 32.1 g/dL (33.0-36.5); MEAN CORPUSCULAR VOLUME 85.4 FL (78-98); MEAN PLATELET VOLUME 7.6 FL (7.4-10.4); MONOCYTES # (AUTO) 1.1 X10'3 (0-0.9); MONOCYTES % (AUTO) 11.2 % (2-12); NEUTROPHILS % (AUTO) 69.3 % (42-75); PLATELET COUNT 174 X10'3 (140-440); RED BLOOD COUNT 3.04 X10'6 (4.20-5.60); RED CELL DISTRIBUTION WIDTH 18.8 % (11.5-14.5); WHITE BLOOD COUNT 10.1 X10'3 (4.5-11.0)
[2022-03-27 04:22] LABS: ALBUMIN 1.3 G/DL (3.4-5.0); ANION GAP 4 (8-16); BLOOD UREA NITROGEN 10 MG/DL (7-18); BUN/CREATININE RATIO 12.7 (6.6-38.0); CALCIUM 7.1 MG/DL (8.5-10.1); CHLORIDE 102 MMOL/L (99-107); CREATININE 0.79 MG/DL (0.40-0.90); MAGNESIUM 1.3 MG/DL (1.5-2.4); SODIUM 137 MMOL/L (135-145); TOTAL CARBON DIOXIDE 30.6 MMOL/L (24-32); eGFR 76 ML/MIN
[2022-03-27 04:23] LABS: GLUCOSE 112 MG/DL (70-104)
[2022-03-27 04:24] LABS: POTASSIUM 2.7 MMOL/L (3.5-5.1)
[2022-03-27 04:25] LABS: % IRON SATURATION 6 % (11-46); IRON 13 UG/DL (49-151); TOTAL IRON BINDING CAPACITY 203 UG/DL (259-388)
[2022-03-27] MEDS: potassium Cl 20 mEq SR tablet PO PRN ×3 (04:43→16:46)
[2022-03-27 06:00] VITALS: BP 125/72
--- NOTE | 2022-03-27 06:23 | NUR ---
Patient in room PCU 3022. I have received report from Aarti SANCHEZ and had the opportunity to ask questions and assume patient care. Pt is laying supine in bed. Pt appears to be resting comfortably. No s/s of distress or pain. Pt on RA. No s/s of distress. Pt has family member at bed side. BLL, call light within reach, frequently used items in reach, frequent rounding, craft center director socks on. Will continue to [facility].
[2022-03-27] MEDS: furosemide 20 MG/2 ML vial IV SCH ×3 (08:00→20:00)
[2022-03-27] MEDS: K and/or MAG REPLACEMENT MC SCH ×2 (08:00→20:00)
[2022-03-27] MEDS: buPROPion 75mg tablet PO SCH ×2 (08:58→20:00)
[2022-03-27] MEDS: HYDROcodone/acetaminophen 10/325mg tab PO PRN ×3 (09:00→23:52)
--- NOTE | 2022-03-27 09:07 | NUR ---
Pts 22G to R hand infiltrated. Pt has c/o pain to the site. Pt is crying stating she does not want another PIV placed that it hurts. Will attempt to place new piv. Will continue to monitor.
[2022-03-27 10:00] VITALS: BP 118/62
[2022-03-27] MEDS: naltrexone 50mg tablet PO SCH (11:07)
[2022-03-27 14:00] VITALS: BP 136/65
[2022-03-27] MEDS ORDERED: vancomycin/NS 1 GM ADD-VANTAGE 250 ML IV SCH (16:00)
[2022-03-27] MEDS: VANCOmycin 1250MG/NS 250ml Bag 250 ML IV SCH (16:54)
[2022-03-27 18:00] VITALS: BP 110/67
--- NOTE | 2022-03-27 18:51 | NUR ---
Problems reprioritized. Patient report given, questions answered & plan of care reviewed with Aarti SANCHEZ.
[2022-03-27 22:00] VITALS: BP 116/61
[2022-03-28 02:00] VITALS: BP 113/63
[2022-03-28] MEDS: VANCOmycin 1250MG/NS 250ml Bag 250 ML IV SCH (04:04)
[2022-03-28 06:00] VITALS: BP 110/68
[2022-03-28 06:55] LABS: BASOPHILS # (AUTO) 0.1 X10'3 (0-0.2); BASOPHILS % (AUTO) 0.9 % (0-1); EOSINOPHILS # (AUTO) 0.1 X10'3 (0-0.9); EOSINOPHILS % (AUTO) 2.2 % (0-6); HEMATOCRIT 27.4 % (35.0-45.0); HEMOGLOBIN 9.1 g/dl (12.0-16.0); LYMPHOCYTES # (AUTO) 1.4 X10'3 (1.1-4.8); LYMPHOCYTES % (AUTO) 20.7 % (21-51); MEAN CORPUSCULAR HEMOGLOBIN 28.3 PG (27.0-31.0); MEAN CORPUSCULAR HGB CONC 33.1 g/dL (33.0-36.5); MEAN CORPUSCULAR VOLUME 85.5 FL (78-98); MEAN PLATELET VOLUME 7.7 FL (7.4-10.4); MONOCYTES # (AUTO) 0.6 X10'3 (0-0.9); MONOCYTES % (AUTO) 9.8 % (2-12); NEUTROPHILS # (AUTO) 4.4 X10'3 (1.8-7.7); NEUTROPHILS % (AUTO) 66.4 % (42-75); PLATELET COUNT 182 X10'3 (140-440); RED CELL DISTRIBUTION WIDTH 19.6 % (11.5-14.5); WHITE BLOOD COUNT 6.6 X10'3 (4.5-11.0)
--- NOTE | 2022-03-28 06:55 | NUR ---
Patient in room PCU 3022. I have received report from DANIEL Bishop and had the opportunity to ask questions and assume patient care.
[2022-03-28 07:04] LABS: ALBUMIN 1.4 G/DL (3.4-5.0); ANION GAP 4 (8-16); BLOOD UREA NITROGEN 10 MG/DL (7-18); BUN/CREATININE RATIO 15.2 (6.6-38.0); CALCIUM 7.2 MG/DL (8.5-10.1); CHLORIDE 107 MMOL/L (99-107); CREATININE 0.66 MG/DL (0.40-0.90); MAGNESIUM 1.6 MG/DL (1.5-2.4); POTASSIUM 4.4 MMOL/L (3.5-5.1); SODIUM 138 MMOL/L (135-145); TOTAL CARBON DIOXIDE 27.1 MMOL/L (24-32); eGFR > 90 ML/MIN
[2022-03-28 07:05] LABS: GLUCOSE 85 MG/DL (70-104)
[2022-03-28 07:55] LABS: ANISOCYTOSIS 2+; MICROCYTOSIS 1+; PLATELET ESTIMATE NORMAL; POLYCHROMASIA FEW; STOMATOCYTES FEW
[2022-03-28] MEDS: K and/or MAG REPLACEMENT MC SCH ×2 (08:00→18:58)
[2022-03-28] MEDS: furosemide 20 MG/2 ML vial IV SCH ×2 (09:37→20:21)
[2022-03-28] MEDS: HYDROcodone/acetaminophen 10/325mg tab PO PRN ×2 (09:38→17:13)
[2022-03-28] MEDS: naltrexone 50mg tablet PO SCH (09:38)
[2022-03-28] MEDS: buPROPion 75mg tablet PO SCH ×2 (09:38→20:21)
[2022-03-28 10:56] VITALS: BP 123/69
[2022-03-28 15:19] VITALS: BP 135/67
[2022-03-28] MEDS: piperacillin/tazo 3.375gm/50ml 50 ML IV SCH (15:23)
[2022-03-28 18:00] VITALS: BP 120/67
--- NOTE | 2022-03-28 18:09 | NUR ---
Problems reprioritized. Patient report given, questions answered & plan of care reviewed with DANIEL Bishop.
[2022-03-28 22:00] VITALS: BP 115/60
[2022-03-29 02:00] VITALS: BP 107/65
[2022-03-29] MEDS ORDERED: VANCOMYCIN LEVEL IV ONE (03:30)
[2022-03-29 06:00] VITALS: BP 117/71
[2022-03-29 06:35] LABS: BASOPHILS # (AUTO) 0.1 X10'3 (0-0.2); BASOPHILS % (AUTO) 1.5 % (0-1); EOSINOPHILS # (AUTO) 0.1 X10'3 (0-0.9); EOSINOPHILS % (AUTO) 1.9 % (0-6); HEMOGLOBIN 9.1 g/dl (12.0-16.0); LYMPHOCYTES # (AUTO) 1.6 X10'3 (1.1-4.8); LYMPHOCYTES % (AUTO) 26.9 % (21-51); MEAN CORPUSCULAR HEMOGLOBIN 28.2 PG (27.0-31.0); MEAN CORPUSCULAR HGB CONC 32.4 g/dL (33.0-36.5); MEAN PLATELET VOLUME 7.8 FL (7.4-10.4); MONOCYTES # (AUTO) 0.6 X10'3 (0-0.9); MONOCYTES % (AUTO) 9.3 % (2-12); NEUTROPHILS # (AUTO) 3.7 X10'3 (1.8-7.7); NEUTROPHILS % (AUTO) 60.4 % (42-75); PLATELET COUNT 201 X10'3 (140-440); RED BLOOD COUNT 3.22 X10'6 (4.20-5.60); RED CELL DISTRIBUTION WIDTH 20.1 % (11.5-14.5); WHITE BLOOD COUNT 6.1 X10'3 (4.5-11.0)
[2022-03-29 06:49] LABS: ALBUMIN 1.4 G/DL (3.4-5.0); ANION GAP 2 (8-16); BLOOD UREA NITROGEN 13 MG/DL (7-18); BUN/CREATININE RATIO 17.8 (6.6-38.0); CALCIUM 7.5 MG/DL (8.5-10.1); CHLORIDE 106 MMOL/L (99-107); CREATININE 0.73 MG/DL (0.40-0.90); MAGNESIUM 1.7 MG/DL (1.5-2.4); POTASSIUM 3.5 MMOL/L (3.5-5.1); SODIUM 138 MMOL/L (135-145); TOTAL CARBON DIOXIDE 29.6 MMOL/L (24-32); eGFR 84 ML/MIN
[2022-03-29 07:13] LABS: GLUCOSE 83 MG/DL (70-104)
[2022-03-29] MEDS: K and/or MAG REPLACEMENT MC SCH (08:00)
--- NOTE | 2022-03-29 08:27 | NUR ---
Initial: Pt admitted w/ anemia and BLE cellulitis per EMR. Currently on Heart Healthy diet w/ mostly 75% intake of meals meeting est needs at this time. Recommend liberalizing to Regular diet given lipids mostly WNL. Per WOC pt has multiple BLE wounds though no staging given. LBM 03/26. Will continue to monitor. Recs: 1. Liberalize to Regular diet; lipids mostly WNL, low HDL 2. Routine thiamine, folic acid, MVI if MD agreeable for EtOH hx 3. Bowel care per rx 4. Weekly wts Addendum: 03/29/22 at [address] Amended: Links added.
[2022-03-29] MEDS: piperacillin/tazo 3.375gm/50ml 50 ML IV SCH ×2 (08:58)
[2022-03-29] MEDS: furosemide 20 MG/2 ML vial IV SCH (08:58)
[2022-03-29] MEDS: naltrexone 50mg tablet PO SCH (08:58)
[2022-03-29] MEDS: buPROPion 75mg tablet PO SCH (08:58)
[2022-03-29 10:45] VITALS: BP 123/67
== END 2022-03-29 15:10 | disposition left against medical advice (07) | DRG 663 ==
LOC: ER 18:01 → ED HOLD 03-25 00:08 → PCU 3S 03-25 13:10
PROVIDERS: ADMIT Internal Medicine; ATTEND Family Medicine
PROC: 30233N1 Transfusion of Nonautologous Red Blood Cells into Peripheral Vein, Percutaneous Approach (ICD-10-PCS; principal; 2022-03-24)
PROC: 3E0234Z Introduction of Serum, Toxoid and Vaccine into Muscle, Percutaneous Approach (ICD-10-PCS; 2022-03-25)
PROC: 3E02340 Introduction of Influenza Vaccine into Muscle, Percutaneous Approach (ICD-10-PCS; 2022-03-25)
DX: D50.9 Iron deficiency anemia, unspecified (principal); N17.0 Acute kidney failure with tubular necrosis; L03.115 Cellulitis of right lower limb; K70.31 Alcoholic cirrhosis of liver with ascites; K72.90 Hepatic failure, unspecified without coma; L03.116 Cellulitis of left lower limb; I50.9 Heart failure, unspecified; K80.20 Calculus of gallbladder without cholecystitis without obstruction; Z53.29 Procedure and treatment not carried out because of patient's decision for other reasons; E87.6 Hypokalemia; B18.2 Chronic viral hepatitis C; F10.20 Alcohol dependence, uncomplicated; F15.90 Other stimulant use, unspecified, uncomplicated; F17.210 Nicotine dependence, cigarettes, uncomplicated; N18.9 Chronic kidney disease, unspecified; Z28.310 Unvaccinated for COVID-19; Z87.442 Personal history of urinary calculi; Z90.710 Acquired absence of both cervix and uterus; Z56.0 Unemployment, unspecified; Z23 Encounter for immunization; Z88.8 Allergy status to other drugs, medicaments and biological substances; Z86.14 Personal history of Methicillin resistant Staphylococcus aureus infection
CPT/HCPCS: 36415; 36430; 71045; 76705; 80048; 80053; 80061; 80202; 82248; 82607; 83036; 83540; 83550; 83735; 83880; 84100; 84443; 84484; 85008; 85025; 85610; 85730; 86885; 86900; 86901; 86920; 87070; 87077; 87081; 87186; 90686; 90732; 93925; 96365; 97110; 97116; 97161; 97530; 99285; A6212; A6222; A6223; A6258; A6446; A6449; G0378; J1940; J2405; J2543; J3370; J3475; J3480; J7030; J7040; P9016

== ENCOUNTER 2022-05-06 10:36 | Inpatient (IN) | payer MEDICAID ==
[~2022-05-06] VITALS: Ht 160 cm; Wt 70.0 kg
[2022-05-06] MEDS ORDERED: normal saline 1000ML IV soln IV ONE (16:55)
[2022-05-06 17:31] LABS: BASOPHILS # (AUTO) 0.1 X10'3 (0-0.2); BASOPHILS % (AUTO) 1.3 % (0-1); EOSINOPHILS # (AUTO) 0.2 X10'3 (0-0.9); EOSINOPHILS % (AUTO) 3.7 % (0-6); HEMATOCRIT 34.4 % (35.0-45.0); LYMPHOCYTES # (AUTO) 1.7 X10'3 (1.1-4.8); LYMPHOCYTES % (AUTO) 28.2 % (21-51); MEAN CORPUSCULAR VOLUME 87.5 FL (78-98); MEAN PLATELET VOLUME 7.2 FL (7.4-10.4); MONOCYTES # (AUTO) 0.8 X10'3 (0-0.9); MONOCYTES % (AUTO) 12.9 % (2-12); NEUTROPHILS # (AUTO) 3.3 X10'3 (1.8-7.7); NEUTROPHILS % (AUTO) 53.9 % (42-75); PLATELET COUNT 185 X10'3 (140-440); RED BLOOD COUNT 3.93 X10'6 (4.20-5.60); RED CELL DISTRIBUTION WIDTH 25.7 % (11.5-14.5); WHITE BLOOD COUNT 6.1 X10'3 (4.5-11.0)
[2022-05-06 17:52] LABS: ANISOCYTOSIS 3+; LACTIC SEPSIS 2.7 MMOL/L (0.4-2.0); PLATELET ESTIMATE NORMAL
[2022-05-06 17:53] LABS: POLYCHROMASIA FEW; SPHEROCYTES FEW; TEAR DROP CELLS FEW
[2022-05-06 17:59] LABS: ALANINE AMINOTRANSFERASE 37 U/L (12-78); ALBUMIN 1.7 G/DL (3.4-5.0); ALBUMIN/GLOBULIN RATIO 0.3 (1.1-1.5); ALKALINE PHOSPHATASE 110 IU/L (46-116); ANION GAP 7 (8-16); ASPARTATE AMINO TRANSFERASE 41 U/L (10-37); BILIRUBIN,TOTAL 2.4 MG/DL (0.1-1.0); BLOOD UREA NITROGEN 10 MG/DL (7-18); BUN/CREATININE RATIO 11.8 (6.6-38.0); CALCIUM 8.5 MG/DL (8.5-10.1); CHLORIDE 101 MMOL/L (99-107); CREATININE 0.85 MG/DL (0.40-0.90); ETHANOL < 0.010 GM/DL (0.0-0.010); GLUCOSE 118 MG/DL (70-104); SODIUM 138 MMOL/L (135-145); TOTAL CARBON DIOXIDE 29.7 MMOL/L (24-32); TOTAL PROTEIN 6.8 G/DL (6.4-8.2); eGFR 70 ML/MIN
[2022-05-06 18:00] LABS: CLARITY,URINE SLIGHTLY CLOUDY (Clear); GLUCOSE, URINE NEGATIVE (Neg); KETONES,URINE TRACE mg/dl (Neg); LEUKOCYTE ESTERASE ,URINE NEGATIVE (Neg); NITRITES, URINE NEGATIVE (Neg); OCCULT BLOOD,URINE NEGATIVE (Neg); PH,URINE 6.5 (4.8-8.0); PROTEIN,URINE NEGATIVE (Neg)
[2022-05-06 18:04] LABS: URINE AMPHETAMINE SCREEN POSITIVE (Neg); URINE BARBITUATE SCREEN NEGATIVE (Neg); URINE BENZODIAZEPINES SCREEN NEGATIVE (Neg); URINE CANNABINOID SCREEN NEGATIVE (Neg); URINE COCAINE SCREEN NEGATIVE (Neg); URINE METHADONE SCREEN NEGATIVE (Neg); URINE OPIATE SCREEN NEGATIVE (Neg); URINE PHENCYCLIDINE SCREEN NEGATIVE (Neg)
[2022-05-06 18:07] LABS: POTASSIUM 2.6 MMOL/L (3.5-5.1)
[2022-05-06] MEDS ORDERED: potassium Cl 20 mEq SR tablet PO STA (18:07)
[2022-05-06] MEDS ORDERED: potassium Cl 10 mEq/100mL bag IV ONE (18:10)
[2022-05-06 18:11] LABS: COLOR,URINE DARK YELLOW (Yellow); UA COLLECTION TYPE NON-SPECIFIED
[2022-05-06 18:14] LABS: MUCUS STRANDS MANY /LPF (Neg); SQUAMOUS EPITHELIAL CELL,UR MANY /LPF (FEW)
[2022-05-06 18:15] LABS: HYALINE CASTS 0-3 /LPF (NEGATIVE)
[2022-05-06] MEDS ORDERED: piperacillin/tazo 3.375gm/50ml 50 ML IV ONE (18:15)
[2022-05-06] MEDS ORDERED: vancomycin/NS 1 GM ADD-VANTAGE 250 ML IV ONE (18:15)
[2022-05-06 18:20] LABS: BACTERIA,URINE FEW /HPF (Neg); RBC,URINE 0-2 /HPF (0-2); WBC,URINE 0-4 /HPF (0-4)
[2022-05-06 18:26] LABS: CAL OXALATE CRYSTALS 4+ /HPF (NEGATIVE)
[2022-05-06] MEDS ORDERED: ondansetron/PF 4mg/2ml inj IV PRN (20:40)
[2022-05-06] MEDS ORDERED: mag hydrox/Alum hydrox/simeth 30ml oral suspension PO PRN (20:40)
[2022-05-06] MEDS ORDERED: diphenhydrAMINE 25mg capsule PO PRN (20:40)
[2022-05-06] MEDS ORDERED: potassium Cl 20 mEq SR tablet PO PRN (20:40)
[2022-05-06] MEDS ORDERED: potassium Cl 40MEQ/1/2NS 520ml 520 ML IV PRN (20:40)
[2022-05-06] MEDS ORDERED: ondansetron 4mg rapidly disintigrating tab PO PRN (20:40)
[2022-05-06] MEDS ORDERED: magnesium 4gm in 100ml NS 100 ML IV PRN (20:40)
[2022-05-06] MEDS ORDERED: bisacodyl 10mg suppository rectal RC PRN (20:40)
[2022-05-06] MEDS ORDERED: magnesium hydroxide 30ml (MOM) UD suspension PO PRN (20:40)
[2022-05-06] MEDS ORDERED: acetaminophen 325mg tablet PO PRN ×2 (20:40)
[2022-05-06] MEDS ORDERED: metoclopramide 5 mg/ml inj IV PRN (20:40)
[2022-05-06] MEDS ORDERED: diphenhydrAMINE 50 mg/ml inj IV PRN (20:40)
[2022-05-06] MEDS ORDERED: normal saline 1000ml 1,000 ML IV SCH (20:40)
[2022-05-06] MEDS ORDERED: sincalide inj 1.4 MCG in normal saline 100ml IV soln 100 ML IV ONE (20:45)
[2022-05-06] MEDS ORDERED: temazepam 15mg capsule PO PRN (21:00)
[2022-05-06 21:15] LABS: MAGNESIUM 1.6 MG/DL (1.5-2.4); PHOSPHORUS 2.5 MG/DL (2.3-4.5)
[2022-05-06] MEDS: rifaximin 550mg tablet PO SCH (21:43)
--- NOTE | 2022-05-07 00:20 | NUR ---
received report from Faye SANCHEZ.
[2022-05-07 00:40] VITALS: BP 122/79
--- NOTE | 2022-05-07 00:40 | NUR ---
pt arrived to floor via gurney. assisted to the bed. oriented to room. call light in reach. pt settled in bed
[2022-05-07] MEDS ORDERED: HYDROcodone/acetaminophen 5mg/325mg tablet PO PRN (01:30)
[2022-05-07] MEDS: HYDROcodone/acetaminophen 10/325mg tab PO PRN ×2 (01:47→11:24)
[2022-05-07 06:00] VITALS: BP 105/50
--- NOTE | 2022-05-07 06:24 | NUR ---
Patient in room PARAS 346. I have received report from Diane SANCHEZ and had the opportunity to ask questions and assume patient care.
--- NOTE | 2022-05-07 06:45 | NUR ---
Problems reprioritized. Patient report given, questions answered & plan of care reviewed with MILTON Manriquez.
[2022-05-07 07:07] LABS: BASOPHILS # (AUTO) 0.1 X10'3 (0-0.2); BASOPHILS % (AUTO) 1.3 % (0-1); EOSINOPHILS # (AUTO) 0.3 X10'3 (0-0.9); EOSINOPHILS % (AUTO) 4.6 % (0-6); HEMATOCRIT 28.5 % (35.0-45.0); HEMOGLOBIN 9.2 g/dl (12.0-16.0); LYMPHOCYTES # (AUTO) 1.9 X10'3 (1.1-4.8); LYMPHOCYTES % (AUTO) 25.6 % (21-51); MEAN CORPUSCULAR HEMOGLOBIN 28.1 PG (27.0-31.0); MEAN CORPUSCULAR HGB CONC 32.4 g/dL (33.0-36.5); MEAN CORPUSCULAR VOLUME 86.9 FL (78-98); MEAN PLATELET VOLUME 7.5 FL (7.4-10.4); MONOCYTES # (AUTO) 0.9 X10'3 (0-0.9); MONOCYTES % (AUTO) 11.8 % (2-12); NEUTROPHILS # (AUTO) 4.1 X10'3 (1.8-7.7); NEUTROPHILS % (AUTO) 56.7 % (42-75); PLATELET COUNT 243 X10'3 (140-440); RED BLOOD COUNT 3.28 X10'6 (4.20-5.60); RED CELL DISTRIBUTION WIDTH 25.3 % (11.5-14.5); WHITE BLOOD COUNT 7.3 X10'3 (4.5-11.0)
[2022-05-07] MEDS ORDERED: lactulose 20gm/30ml cup PO SCH (08:00)
[2022-05-07] MEDS: rifaximin 550mg tablet PO SCH ×2 (08:00→20:11)
[2022-05-07] MEDS ORDERED: vancomycin/NS 1 GM ADD-VANTAGE 250 ML IV SCH (08:00)
[2022-05-07] MEDS ORDERED: docusate sod 100mg capsule PO SCH (08:00)
[2022-05-07 08:01] LABS: ALANINE AMINOTRANSFERASE 30 U/L (12-78); ALBUMIN 1.4 G/DL (3.4-5.0); ALBUMIN/GLOBULIN RATIO 0.3 (1.1-1.5); ALKALINE PHOSPHATASE 93 IU/L (46-116); ANION GAP 7 (8-16); ASPARTATE AMINO TRANSFERASE 33 U/L (10-37); BILIRUBIN,TOTAL 1.9 MG/DL (0.1-1.0); BLOOD UREA NITROGEN 9 MG/DL (7-18); BUN/CREATININE RATIO 13.8 (6.6-38.0); CALCIUM 7.5 MG/DL (8.5-10.1); CHLORIDE 105 MMOL/L (99-107); CREATININE 0.65 MG/DL (0.40-0.90); GLUCOSE 90 MG/DL (70-104); MAGNESIUM 1.4 MG/DL (1.5-2.4); SODIUM 138 MMOL/L (135-145); TOTAL CARBON DIOXIDE 26.3 MMOL/L (24-32); TOTAL PROTEIN 5.5 G/DL (6.4-8.2); eGFR > 90 ML/MIN
[2022-05-07 08:03] LABS: POTASSIUM 2.9 MMOL/L (3.5-5.1)
[2022-05-07] MEDS: potassium Cl 20 mEq SR tablet PO PRN ×4 (08:19→22:35)
[2022-05-07] MEDS: K and/or MAG REPLACEMENT MC SCH ×2 (08:19→20:00)
[2022-05-07] MEDS: furosemide 10 MG/1 ML 10ml inj IV SCH (08:32)
[2022-05-07] MEDS: pantoprazole 40MG/NS 100ML BAG 100 ML IV SCH (08:33)
[2022-05-07] MEDS ORDERED: sincalide inj 1.4 MCG in normal saline 100ml IV soln 98.6 ML IV ONE (10:35)
--- NOTE | 2022-05-07 10:45 | NUR ---
Received order for consult. Went to meet with patient and patient is currently out of room. I will check back in.
[2022-05-07] MEDS: piperacillin/tazo 4.5gm/100ml 100 ML IV SCH ×2 (11:25→20:12)
--- NOTE | 2022-05-07 12:19 | NUR ---
Met with patient in regards to substance use and to see if patient was interested in treatment options. Patient declined resources.
--- NOTE | 2022-05-07 17:24 | NUR ---
ACCOUNT ADVISOR documentation: I have reviewed and agree with all interventions, assessments performed and documented by Mitra Owens LVN.
[2022-05-07 18:00] VITALS: BP 121/74
--- NOTE | 2022-05-07 18:15 | NUR ---
Patient in room PARAS 346. I have received report from MILTON Manriquez and had the opportunity to ask questions and assume patient care.
--- NOTE | 2022-05-07 18:22 | NUR ---
Problems reprioritized. Patient report given, questions answered & plan of care reviewed with Diane SANCHEZ.
[2022-05-07] MEDS: magnesium Cl slow-release 64mg tablet PO PRN (20:18)
[2022-05-07] MEDS: vancomycin/NS 1 GM ADD-VANTAGE 250 ML IV SCH (21:11)
[2022-05-07 22:00] VITALS: BP 122/69
[2022-05-08] MEDS: magnesium Cl slow-release 64mg tablet PO PRN (04:37)
[2022-05-08] MEDS: potassium Cl 20 mEq SR tablet PO PRN (04:37)
[2022-05-08] MEDS: HYDROcodone/acetaminophen 10/325mg tab PO PRN ×4 (04:43→10:45)
--- NOTE | 2022-05-08 06:37 | NUR ---
Problems reprioritized. Patient report given, questions answered & plan of care reviewed with DANIEL Rodriguez.
[2022-05-08 07:28] VITALS: BP 113/57
[2022-05-08] MEDS: K and/or MAG REPLACEMENT MC SCH (08:00)
[2022-05-08] MEDS: pantoprazole 40MG/NS 100ML BAG 100 ML IV SCH (08:30)
[2022-05-08] MEDS ORDERED: VANCOMYCIN LEVEL IV ONE (08:30)
[2022-05-08] MEDS: piperacillin/tazo 4.5gm/100ml 100 ML IV SCH (08:31)
[2022-05-08] MEDS: rifaximin 550mg tablet PO SCH (08:31)
[2022-05-08] MEDS: vancomycin/NS 1 GM ADD-VANTAGE 250 ML IV SCH (08:31)
[2022-05-08] MEDS: furosemide 10 MG/1 ML 10ml inj IV SCH (08:32)
[2022-05-08 10:10] VITALS: BP 142/87
--- NOTE | 2022-05-08 10:46 | NUR ---
PT GIVEN NORCO AT 1045 BY THIS rn NONE GIVEN PRIOR. NOC GAVE AT 0443.
[2022-05-08 11:49] LABS: BASOPHILS # (AUTO) 0.1 X10'3 (0-0.2); BASOPHILS % (AUTO) 1.5 % (0-1); EOSINOPHILS # (AUTO) 0.4 X10'3 (0-0.9); EOSINOPHILS % (AUTO) 5.5 % (0-6); HEMATOCRIT 29.9 % (35.0-45.0); HEMOGLOBIN 9.4 g/dl (12.0-16.0); LYMPHOCYTES % (AUTO) 27.9 % (21-51); MEAN CORPUSCULAR HEMOGLOBIN 28.1 PG (27.0-31.0); MEAN CORPUSCULAR HGB CONC 31.6 g/dL (33.0-36.5); MEAN CORPUSCULAR VOLUME 89.1 FL (78-98); MEAN PLATELET VOLUME 7.3 FL (7.4-10.4); MONOCYTES % (AUTO) 13.2 % (2-12); NEUTROPHILS # (AUTO) 3.8 X10'3 (1.8-7.7); NEUTROPHILS % (AUTO) 51.9 % (42-75); PLATELET COUNT 232 X10'3 (140-440); RED BLOOD COUNT 3.35 X10'6 (4.20-5.60); RED CELL DISTRIBUTION WIDTH 25.2 % (11.5-14.5); WHITE BLOOD COUNT 7.3 X10'3 (4.5-11.0)
[2022-05-08 12:15] LABS: ANISOCYTOSIS 3+; PLATELET ESTIMATE NORMAL
[2022-05-08 12:16] LABS: POIKILOCYTOSIS FEW
[2022-05-08 12:21] LABS: ALANINE AMINOTRANSFERASE 28 U/L (12-78); ALBUMIN 1.4 G/DL (3.4-5.0); ALBUMIN/GLOBULIN RATIO 0.3 (1.1-1.5); ALKALINE PHOSPHATASE 92 IU/L (46-116); ANION GAP 3 (8-16); ASPARTATE AMINO TRANSFERASE 30 U/L (10-37); BILIRUBIN,TOTAL 1.6 MG/DL (0.1-1.0); BLOOD UREA NITROGEN 10 MG/DL (7-18); BUN/CREATININE RATIO 13.2 (6.6-38.0); CALCIUM 7.1 MG/DL (8.5-10.1); CHLORIDE 103 MMOL/L (99-107); CREATININE 0.76 MG/DL (0.40-0.90); GLUCOSE 104 MG/DL (70-104); MAGNESIUM 1.4 MG/DL (1.5-2.4); POTASSIUM 3.8 MMOL/L (3.5-5.1); SODIUM 136 MMOL/L (135-145); TOTAL CARBON DIOXIDE 29.8 MMOL/L (24-32); TOTAL PROTEIN 5.8 G/DL (6.4-8.2); eGFR 80 ML/MIN
[2022-05-08] MEDS ORDERED: DOCU-342 PO (14:38)
[2022-05-08] MEDS ORDERED: FERR325T29 PO (14:38)
[2022-05-08] MEDS ORDERED: ASCO500T20 PO (14:38)
[2022-05-08] MEDS ORDERED: CIPR500T5 PO (14:38)
[2022-05-08] MEDS ORDERED: CHOL20003 (14:38)
[2022-05-08] MEDS ORDERED: COLL30OI TOP (14:38)
[2022-05-08] MEDS ORDERED: MAGN400T56 (14:38)
[2022-05-08] MEDS ORDERED: FURO20TA4 PO (15:04)
[2022-05-08] MEDS ORDERED: CEPH250T PO (15:04)
[2022-05-08] MEDS ORDERED: PANT40TA54 PO (15:04)
[2022-05-08] MEDS ORDERED: POTA-82 PO (15:52)
--- NOTE | 2022-05-08 16:48 | NUR ---
pt discharge at 4:20pm. all vital sign was stable. bp 123/68 h 83 t 97.3 r 19. pt too all belonging. left with wheel chair with a family.
== END 2022-05-08 16:30 | disposition home or self-care (01) ==
LOC: ER 10:36 → ED HOLD 20:42 → SUR 3N 05-07 00:40
PROVIDERS: ADMIT Family Medicine; ATTEND Internal Medicine
PROC: CF1C1ZZ Planar Nuclear Medicine Imaging of Hepatobiliary System, All using Technetium 99m (Tc-99m) (ICD-10-PCS; principal; 2022-05-07)
DX: K80.00 Calculus of gallbladder with acute cholecystitis without obstruction (principal); I50.23 Acute on chronic systolic (congestive) heart failure; N17.9 Acute kidney failure, unspecified; L03.115 Cellulitis of right lower limb; I27.20 Pulmonary hypertension, unspecified; E88.09 Other disorders of plasma-protein metabolism, not elsewhere classified; E87.20 Acidosis, unspecified; L03.116 Cellulitis of left lower limb; E86.0 Dehydration; K70.9 Alcoholic liver disease, unspecified; E87.6 Hypokalemia; F15.129 Other stimulant abuse with intoxication, unspecified; F10.10 Alcohol abuse, uncomplicated; F17.210 Nicotine dependence, cigarettes, uncomplicated; I87.2 Venous insufficiency (chronic) (peripheral); I87.8 Other specified disorders of veins; K74.60 Unspecified cirrhosis of liver; R82.4 Acetonuria; N18.9 Chronic kidney disease, unspecified; N20.0 Calculus of kidney; R18.8 Other ascites; Z56.0 Unemployment, unspecified; Z80.9 Family history of malignant neoplasm, unspecified; Z87.442 Personal history of urinary calculi; Z90.710 Acquired absence of both cervix and uterus; Z88.8 Allergy status to other drugs, medicaments and biological substances
CPT/HCPCS: 36415; 71045; 74176; 76700; 78227; 80053; 80305; 80320; 81001; 82140; 83605; 83735; 83880; 84100; 84132; 84145; 85008; 85025; 85610; 87040; 87081; 87502; 87503; 96361; 96365; 96368; 97161; 97530; 99285; A4649; A6196; A6212; A6223; A6253; A6446; A6449; A9537; C9113; G0378; J1940; J2543; J2805; J3370; J3480; J3490; J7030

== ENCOUNTER 2022-06-03 15:06 | Emergency (ER) | payer MEDICAID ==
[~2022-06-03] VITALS: Ht 160 cm; Wt 73.0 kg
[~2022-06-03 15:06] MED LIST changes: +ASCO500T20 PO; +CHOL20003; +COLL30OI TOP; +DOCU-342 PO; +FERR325T29 PO; +FURO20TA4 PO; +MAGN400T56; -NO HOME MEDS; +PANT40TA54 PO; +POTA-82 PO
[2022-06-03] MEDS ORDERED: HYDROcodone/acetaminophen 5mg/325mg tablet PO ONE (16:15)
[2022-06-03] MEDS ORDERED: normal saline 1000ml 1,000 ML IV ONE (16:15)
[2022-06-03 17:11] LABS: BASOPHILS # (AUTO) 0.1 X10'3 (0-0.2); BASOPHILS % (AUTO) 1.2 % (0-1); EOSINOPHILS # (AUTO) 0.2 X10'3 (0-0.9); EOSINOPHILS % (AUTO) 3.4 % (0-6); HEMATOCRIT 32.5 % (35.0-45.0); HEMOGLOBIN 10.2 g/dl (12.0-16.0); LYMPHOCYTES # (AUTO) 1.5 X10'3 (1.1-4.8); LYMPHOCYTES % (AUTO) 23.6 % (21-51); MEAN CORPUSCULAR HEMOGLOBIN 29.2 PG (27.0-31.0); MEAN CORPUSCULAR HGB CONC 31.4 g/dL (33.0-36.5); MEAN PLATELET VOLUME 7.3 FL (7.4-10.4); MONOCYTES # (AUTO) 0.9 X10'3 (0-0.9); MONOCYTES % (AUTO) 14.1 % (2-12); NEUTROPHILS # (AUTO) 3.8 X10'3 (1.8-7.7); NEUTROPHILS % (AUTO) 57.7 % (42-75); PLATELET COUNT 226 X10'3 (140-440); RED BLOOD COUNT 3.49 X10'6 (4.20-5.60); RED CELL DISTRIBUTION WIDTH 23.4 % (11.5-14.5); WHITE BLOOD COUNT 6.5 X10'3 (4.5-11.0)
[2022-06-03 17:38] LABS: ANISOCYTOSIS 3+; PLATELET ESTIMATE NORMAL; POIKILOCYTOSIS FEW; POLYCHROMASIA 1+
[2022-06-03] MEDS ORDERED: CefTRIAXone 2gm/D5W 50ml BAG 50 ML IV ONE (17:40)
[2022-06-03] MEDS ORDERED: vancomycin/NS 1 GM ADD-VANTAGE 250 ML IV ONE (17:40)
[2022-06-03 17:57] LABS: ELLIPTOCYTES FEW
[2022-06-03 18:13] LABS: ALANINE AMINOTRANSFERASE 29 U/L (12-78); ALBUMIN 1.6 G/DL (3.4-5.0); ALBUMIN/GLOBULIN RATIO 0.4 (1.1-1.5); ALKALINE PHOSPHATASE 114 IU/L (46-116); ANION GAP 2 (8-16); ASPARTATE AMINO TRANSFERASE 43 U/L (10-37); BILIRUBIN,TOTAL 1.6 MG/DL (0.1-1.0); BLOOD UREA NITROGEN 11 MG/DL (7-18); BUN/CREATININE RATIO 13.9 (6.6-38.0); CALCIUM 7.6 MG/DL (8.5-10.1); CHLORIDE 104 MMOL/L (99-107); CREATININE 0.79 MG/DL (0.40-0.90); POTASSIUM 3.2 MMOL/L (3.5-5.1); SODIUM 138 MMOL/L (135-145); TOTAL CARBON DIOXIDE 32.1 MMOL/L (24-32); TOTAL PROTEIN 5.4 G/DL (6.4-8.2); eGFR 76 ML/MIN
[2022-06-03 18:17] LABS: GLUCOSE 105 MG/DL (70-104)
[2022-06-03] MEDS ORDERED: DOXY100C77 PO (19:31)
[2022-06-03] MEDS ORDERED: CEPH250T PO (19:31)
[2022-06-03 21:30] VITALS: BP 135/74
== END 2022-06-03 21:33 | disposition home or self-care (01) ==
LOC: ER 15:07
DX: L03.115 Cellulitis of right lower limb (principal); L03.116 Cellulitis of left lower limb; I50.9 Heart failure, unspecified; N18.9 Chronic kidney disease, unspecified; F12.90 Cannabis use, unspecified, uncomplicated; Z90.710 Acquired absence of both cervix and uterus; Z88.6 Allergy status to analgesic agent; Z88.8 Allergy status to other drugs, medicaments and biological substances; Z56.0 Unemployment, unspecified
CPT/HCPCS: 36415; 80053; 83605; 84145; 85008; 85025; 87040; 96361; 96365; 96366; 96368; 99284; J0696; J3370; J7030; A6446; A6449

== ENCOUNTER 2022-06-05 19:23 | Inpatient (IN) | payer MEDICAID ==
[~2022-06-05] VITALS: Ht 157.5 cm; Wt 82.3 kg
[~2022-06-05 19:23] MED LIST changes: +CEPH250T PO; +DOXY100C77 PO
[2022-06-05 19:52] LABS: BASOPHILS # (AUTO) 0.2 X10'3 (0-0.2); BASOPHILS % (AUTO) 1.4 % (0-1); EOSINOPHILS # (AUTO) 0.2 X10'3 (0-0.9); EOSINOPHILS % (AUTO) 1.7 % (0-6); HEMATOCRIT 22.3 % (35.0-45.0); LYMPHOCYTES # (AUTO) 4.2 X10'3 (1.1-4.8); LYMPHOCYTES % (AUTO) 32.1 % (21-51); MEAN CORPUSCULAR HEMOGLOBIN 29.9 PG (27.0-31.0); MEAN CORPUSCULAR HGB CONC 31.2 g/dL (33.0-36.5); MEAN CORPUSCULAR VOLUME 95.9 FL (78-98); MEAN PLATELET VOLUME 7.4 FL (7.4-10.4); MONOCYTES # (AUTO) 1.6 X10'3 (0-0.9); MONOCYTES % (AUTO) 12.1 % (2-12); NEUTROPHILS # (AUTO) 6.9 X10'3 (1.8-7.7); NEUTROPHILS % (AUTO) 52.7 % (42-75); PLATELET COUNT 253 X10'3 (140-440); RED BLOOD COUNT 2.33 X10'6 (4.20-5.60); RED CELL DISTRIBUTION WIDTH 23.3 % (11.5-14.5); WHITE BLOOD COUNT 13.2 X10'3 (4.5-11.0)
[2022-06-05 20:08] LABS: ALANINE AMINOTRANSFERASE 26 U/L (12-78); ALBUMIN 1.3 G/DL (3.4-5.0); ALBUMIN/GLOBULIN RATIO 0.4 (1.1-1.5); ALKALINE PHOSPHATASE 72 IU/L (46-116); ANION GAP 1 (8-16); ASPARTATE AMINO TRANSFERASE 35 U/L (10-37); BILIRUBIN,TOTAL 1.8 MG/DL (0.1-1.0); BLOOD UREA NITROGEN 32 MG/DL (7-18); BUN/CREATININE RATIO 38.1 (6.6-38.0); CALCIUM 7.6 MG/DL (8.5-10.1); CHLORIDE 104 MMOL/L (99-107); CREATININE 0.84 MG/DL (0.40-0.90); GLUCOSE 102 MG/DL (70-104); LIPASE 287 U/L (73-393); POTASSIUM 3.7 MMOL/L (3.5-5.1); SODIUM 139 MMOL/L (135-145); TOTAL CARBON DIOXIDE 33.6 MMOL/L (24-32); TOTAL PROTEIN 4.6 G/DL (6.4-8.2); eGFR 71 ML/MIN
[2022-06-05 20:23] LABS: ANISOCYTOSIS 3+; PLATELET ESTIMATE NORMAL
[2022-06-05 20:24] LABS: ELLIPTOCYTES FEW; HYPOCHROMASIA 1+
[2022-06-05] MEDS ORDERED: normal saline 1000ML IV soln IV ONE (20:25)
[2022-06-05] MEDS ORDERED: pantoprazole 40mg IV 80 MG in normal saline 100ml IV soln 100 ML IV ONE (20:25)
[2022-06-05] MEDS ORDERED: octreotide 100mcg/1 ml ampule IV ONE (20:55)
[2022-06-05 21:10] LABS: APTT 31 SECONDS (22-32)
[2022-06-05] MEDS: octreotide inj. 500 MCG in normal saline 100ml IV soln 97.5 ML IV SCH (21:29)
[2022-06-05 21:40] VITALS: BP 99/58
[2022-06-05 22:00] VITALS: BP 119/70
[2022-06-05] MEDS ORDERED: CefTRIAXone/D5W-Rocephin 1gm 50 ML IV ONE (22:15)
[2022-06-05] MEDS ORDERED: iohexol 300mg/ml 100ml inj. ONE (22:48)
[2022-06-05 23:00] VITALS: BP 127/72
[2022-06-05] MEDS: pantoprazole 40MG/NS 100ML BAG 100 ML IV SCH (23:07)
[2022-06-06] VITALS (12 sets, daily range): BP systolic 97–132; BP diastolic 57–86
[2022-06-06] MEDS: pantoprazole 40MG/NS 100ML BAG 100 ML IV SCH ×4 (01:00→22:36)
[2022-06-06] MEDS ORDERED: ondansetron/PF 4mg/2ml inj IV PRN (01:05)
[2022-06-06] MEDS ORDERED: mag hydrox/Alum hydrox/simeth 30ml oral suspension PO PRN (01:05)
[2022-06-06] MEDS ORDERED: acetaminophen 325mg tablet PO PRN (01:05)
[2022-06-06] MEDS ORDERED: magnesium hydroxide 30ml (MOM) UD suspension PO PRN (01:05)
[2022-06-06] MEDS ORDERED: morphine 2 MG/ML inj. syringe IV PRN ×2 (01:05)
[2022-06-06 06:13] LABS: BASOPHILS # (AUTO) 0.1 X10'3 (0-0.2); BASOPHILS % (AUTO) 0.8 % (0-1); EOSINOPHILS # (AUTO) 0.2 X10'3 (0-0.9); EOSINOPHILS % (AUTO) 1.5 % (0-6); HEMATOCRIT 26.1 % (35.0-45.0); HEMOGLOBIN 8.7 g/dl (12.0-16.0); LYMPHOCYTES # (AUTO) 4.1 X10'3 (1.1-4.8); LYMPHOCYTES % (AUTO) 28.2 % (21-51); MEAN CORPUSCULAR HEMOGLOBIN 30.1 PG (27.0-31.0); MEAN CORPUSCULAR HGB CONC 33.3 g/dL (33.0-36.5); MEAN CORPUSCULAR VOLUME 90.5 FL (78-98); MEAN PLATELET VOLUME 7.8 FL (7.4-10.4); MONOCYTES # (AUTO) 1.9 X10'3 (0-0.9); MONOCYTES % (AUTO) 13.4 % (2-12); NEUTROPHILS # (AUTO) 8.1 X10'3 (1.8-7.7); NEUTROPHILS % (AUTO) 56.1 % (42-75); PLATELET COUNT 206 X10'3 (140-440); RED BLOOD COUNT 2.88 X10'6 (4.20-5.60); RED CELL DISTRIBUTION WIDTH 19.1 % (11.5-14.5); WHITE BLOOD COUNT 14.4 X10'3 (4.5-11.0)
[2022-06-06 06:16] LABS: ALBUMIN 1.2 G/DL (3.4-5.0); ANION GAP 6 (8-16); BLOOD UREA NITROGEN 32 MG/DL (7-18); CALCIUM 7.5 MG/DL (8.5-10.1); CHLORIDE 105 MMOL/L (99-107); GLUCOSE 108 MG/DL (70-104); POTASSIUM 4.1 MMOL/L (3.5-5.1); SODIUM 140 MMOL/L (135-145); TOTAL CARBON DIOXIDE 29.3 MMOL/L (24-32); eGFR 75 ML/MIN
[2022-06-06] MEDS ORDERED: DOXY-457 PO (06:31)
[2022-06-06] MEDS ORDERED: CEPH250C2 PO (06:31)
[2022-06-06 06:34] LABS: PLATELET ESTIMATE NORMAL; POLYCHROMASIA 2+
[2022-06-06 06:35] LABS: ANISOCYTOSIS 2+
[2022-06-06] MEDS ORDERED: FURO-150 PO (06:36)
[2022-06-06] MEDS ORDERED: PANT-47 PO (06:37)
[2022-06-06] MEDS ORDERED: POTA-207 PO (06:38)
--- NOTE | 2022-06-06 06:46 | NUR ---
REPORT FROM YAMINI FOR CONTINUATION OF CARE. PT SLEEPING IN POSITION OF COMFORT. RESP EVEN UNLABORED.
[2022-06-06] MEDS: octreotide inj. 500 MCG in normal saline 100ml IV soln 97.5 ML IV SCH (06:55)
[2022-06-06] MEDS: normal saline 1000ml 1,000 ML IV SCH ×3 (07:47→21:05)
[2022-06-06] MEDS: docusate sod 100mg capsule PO SCH ×2 (08:00→20:00)
[2022-06-06] MEDS: spironolactone 50 MG tablet PO SCH (08:30)
[2022-06-06] MEDS: furosemide 20MG tablet PO SCH (10:29)
[2022-06-06] MEDS ORDERED: LIDOcaine Viscous 15ml cup ONE (11:45)
[2022-06-06] MEDS ORDERED: MIDAZolam 1 MG/ML 5ML VIAL ONE (11:45)
[2022-06-06] MEDS ORDERED: fentaNYL/PF 50MCG/1 ML 2ML syringe ONE (11:45)
[2022-06-06] MEDS ORDERED: diphenhydrAMINE 50 mg/ml inj ONE (11:46)
--- NOTE | 2022-06-06 13:15 | NUR ---
PT TO PROCEDURE EGD.
--- NOTE | 2022-06-06 15:24 | NUR ---
PT RETURNED FROM EGD WITH NO ISSUES. WILL CALL HOSPITALIST WITH RESULTS.
--- NOTE | 2022-06-06 17:22 | NUR ---
PER DR MORE CONTINUE [facility]OT[facility]
--- NOTE | 2022-06-06 17:45 | NUR ---
per dr kelvin bass for clear liquid diet
--- NOTE | 2022-06-06 18:27 | NUR ---
REPORT TO CARITO SANCHEZ FOR CONTINUATION OF CARE.
[2022-06-07] MEDS: pantoprazole 40MG/NS 100ML BAG 100 ML IV SCH ×6 (01:00→21:00)
--- NOTE | 2022-06-07 02:00 | NUR ---
Received pt. from ER in fair condition skin is jaundiced warm and dry. Abd is very large and distended with umbilical hernia noted. Pt. has grade IV/ systolic murmur heard best along left sternal border. Pt. has an EJ IV with protonix gtt and NS at 100 ml/hr infusing. Pt. refuses new peripheral IV due to unsuccessful multi-stick earlier. Pt. no longer feeling nauseous there is not vomiting or stooling this shift. Able to void on Bedpan urine xin orange clear. No c/o pain, ate jello, ice and ice water this shift. Pt. has bilateral wound dressings did not want removed at this time. Plan remain on clear liquid diet until medically cleared wound care consult.
[2022-06-07 02:26] VITALS: BP 125/75
[2022-06-07 06:54] LABS: BASOPHILS # (AUTO) 0.1 X10'3 (0-0.2); BASOPHILS % (AUTO) 1.2 % (0-1); EOSINOPHILS # (AUTO) 0.7 X10'3 (0-0.9); EOSINOPHILS % (AUTO) 6.2 % (0-6); HEMATOCRIT 24.1 % (35.0-45.0); LYMPHOCYTES # (AUTO) 2.8 X10'3 (1.1-4.8); LYMPHOCYTES % (AUTO) 26.2 % (21-51); MEAN CORPUSCULAR HEMOGLOBIN 30.9 PG (27.0-31.0); MEAN CORPUSCULAR HGB CONC 33.2 g/dL (33.0-36.5); MEAN CORPUSCULAR VOLUME 93.1 FL (78-98); MEAN PLATELET VOLUME 7.4 FL (7.4-10.4); MONOCYTES # (AUTO) 1.4 X10'3 (0-0.9); MONOCYTES % (AUTO) 13.1 % (2-12); NEUTROPHILS # (AUTO) 5.6 X10'3 (1.8-7.7); NEUTROPHILS % (AUTO) 53.3 % (42-75); PLATELET COUNT 185 X10'3 (140-440); RED BLOOD COUNT 2.59 X10'6 (4.20-5.60); RED CELL DISTRIBUTION WIDTH 20.3 % (11.5-14.5); WHITE BLOOD COUNT 10.5 X10'3 (4.5-11.0)
[2022-06-07 07:00] VITALS: BP 108/59
--- NOTE | 2022-06-07 07:04 | NUR ---
Admission assessment noted, done in the ER on June 05.
[2022-06-07 07:07] LABS: ALANINE AMINOTRANSFERASE 20 U/L (12-78); ALBUMIN 1.2 G/DL (3.4-5.0); ALBUMIN/GLOBULIN RATIO 0.4 (1.1-1.5); ALKALINE PHOSPHATASE 71 IU/L (46-116); ANION GAP 4 (8-16); ASPARTATE AMINO TRANSFERASE 33 U/L (10-37); BILIRUBIN,TOTAL 2.2 MG/DL (0.1-1.0); BLOOD UREA NITROGEN 28 MG/DL (7-18); BUN/CREATININE RATIO 30.1 (6.6-38.0); CALCIUM 6.9 MG/DL (8.5-10.1); CHLORIDE 103 MMOL/L (99-107); CREATININE 0.93 MG/DL (0.40-0.90); GLUCOSE 130 MG/DL (70-104); SODIUM 138 MMOL/L (135-145); TOTAL PROTEIN 4.4 G/DL (6.4-8.2); eGFR 63 ML/MIN
[2022-06-07 07:10] LABS: POTASSIUM 2.9 MMOL/L (3.5-5.1)
[2022-06-07] MEDS: spironolactone 50 MG tablet PO SCH (09:29)
[2022-06-07] MEDS: furosemide 20MG tablet PO SCH (09:29)
[2022-06-07] MEDS: docusate sod 100mg capsule PO SCH ×2 (09:29→22:18)
[2022-06-07] MEDS: normal saline 1000ml 1,000 ML IV SCH ×2 (09:29→17:05)
--- NOTE | 2022-06-07 09:49 | NUR ---
Patient crying due to missing her wound care appointment, she thought it was Wednesday. I educated her regarding our protocol and notifying our wound care department.
--- NOTE | 2022-06-07 12:06 | NUR ---
promotional table spacer promotional table spacer Page Sent PAGER ID: [phone] MESSAGE: [id number] Claudy Mccauley Can I get a one time dose of 40meq due to a 2.9 k level this am? Alison [phone]
--- NOTE | 2022-06-07 13:49 | NUR ---
PAGER ID: [phone] MESSAGE: [id number] LOU LARSEN Pt is wanting to be discharged now, I am going to give her the AMA form and her medications if I don't here from you. She is coming walking out of the her room, multiple times cursing and "wanting to go now" Alison [phone]
[2022-06-07] MEDS: K, MAG and/or Phos replacement - Verify level? MC SCH (15:51)
[2022-06-07] MEDS: potassium Cl 20 mEq SR tablet PO PRN ×2 (15:59→22:19)
--- NOTE | 2022-06-07 18:35 | NUR ---
Problems reprioritized. Patient report given, questions answered & plan of care reviewed with Libertad SANCHEZ.
[2022-06-07] MEDS: cefuroxime axetil 250mg tablet PO SCH (20:00)
[2022-06-08] MEDS: pantoprazole 40MG/NS 100ML BAG 100 ML IV SCH ×2 (01:00→06:00)
[2022-06-08 02:00] VITALS: BP 113/57
[2022-06-08] MEDS: acetaminophen 325mg tablet PO PRN ×2 (02:09→10:45)
[2022-06-08] MEDS: normal saline 1000ml 1,000 ML IV SCH (02:30)
[2022-06-08] MEDS: potassium Cl 20 mEq SR tablet PO PRN ×2 (04:13→10:46)
--- NOTE | 2022-06-08 06:00 | NUR ---
Patient in room PCU 3018. I have received report from VIPUL SANCHEZ and had the opportunity to ask questions and assume patient care. IV PULLED OUT AT CHANGE OF SHIFT, AND NEVER REPLACED.
[2022-06-08 07:00] VITALS: BP 101/67
[2022-06-08 07:11] LABS: BASOPHILS # (AUTO) 0.1 X10'3 (0-0.2); EOSINOPHILS # (AUTO) 0.6 X10'3 (0-0.9); EOSINOPHILS % (AUTO) 5.4 % (0-6); HEMATOCRIT 23.2 % (35.0-45.0); HEMOGLOBIN 7.7 g/dl (12.0-16.0); LYMPHOCYTES % (AUTO) 27.8 % (21-51); MEAN CORPUSCULAR HGB CONC 33.3 g/dL (33.0-36.5); MEAN CORPUSCULAR VOLUME 93.1 FL (78-98); MEAN PLATELET VOLUME 7.5 FL (7.4-10.4); MONOCYTES # (AUTO) 1.6 X10'3 (0-0.9); MONOCYTES % (AUTO) 15.3 % (2-12); NEUTROPHILS # (AUTO) 5.4 X10'3 (1.8-7.7); NEUTROPHILS % (AUTO) 50.5 % (42-75); PLATELET COUNT 157 X10'3 (140-440); RED BLOOD COUNT 2.49 X10'6 (4.20-5.60); RED CELL DISTRIBUTION WIDTH 20.2 % (11.5-14.5); WHITE BLOOD COUNT 10.6 X10'3 (4.5-11.0)
[2022-06-08] MEDS: K, MAG and/or Phos replacement - Verify level? MC SCH (08:00)
[2022-06-08] MEDS: cefuroxime axetil 250mg tablet PO SCH (08:10)
[2022-06-08] MEDS: spironolactone 50 MG tablet PO SCH (08:10)
[2022-06-08] MEDS: furosemide 20MG tablet PO SCH (08:11)
[2022-06-08] MEDS: docusate sod 100mg capsule PO SCH (08:11)
--- NOTE | 2022-06-08 08:12 | NUR ---
INQUIRED REGARDING IV, PATIENT STATED "SHE ONLY WANTED THE US" I THEN EDUCATED HER WE DON'T ALWAYS HAVE SOMEONE TRAINED ON IT. WILL TRY FOR AN IV AFTER MED PASS.
[2022-06-08 08:25] LABS: TOTAL CELLS COUNTED 100
[2022-06-08 08:26] LABS: ANISOCYTOSIS 3+; PLATELET ESTIMATE NORMAL
[2022-06-08 08:27] LABS: POIKILOCYTOSIS 2+
[2022-06-08 08:28] LABS: ELLIPTOCYTES 1+
[2022-06-08 08:35] LABS: ALANINE AMINOTRANSFERASE 23 U/L (12-78); ALBUMIN 1.3 G/DL (3.4-5.0); ALBUMIN/GLOBULIN RATIO 0.4 (1.1-1.5); ALKALINE PHOSPHATASE 74 IU/L (46-116); ANION GAP 4 (8-16); ASPARTATE AMINO TRANSFERASE 33 U/L (10-37); BILIRUBIN,TOTAL 2.3 MG/DL (0.1-1.0); BLOOD UREA NITROGEN 20 MG/DL (7-18); BUN/CREATININE RATIO 21.5 (6.6-38.0); CALCIUM 6.8 MG/DL (8.5-10.1); CHLORIDE 102 MMOL/L (99-107); CREATININE 0.93 MG/DL (0.40-0.90); GLUCOSE 97 MG/DL (70-104); SODIUM 137 MMOL/L (135-145); TOTAL CARBON DIOXIDE 31.1 MMOL/L (24-32); TOTAL PROTEIN 4.7 G/DL (6.4-8.2); eGFR 63 ML/MIN
--- NOTE | 2022-06-08 13:10 | NUR ---
Patient was seen by wound care and pictures taken this am. Addendum: 06/08/22 at 1311 by Alison Thompson RN Amended: Links added.
--- NOTE | 2022-06-08 15:48 | NUR ---
Wound care rounded, took pictures and redressed wounds prior to discharge. Addendum: 06/08/22 at 1548 by Alison Thompson RN Amended: Links added.
== END 2022-06-08 14:42 | disposition home or self-care (01) | DRG 280 ==
LOC: ER 19:24 → ED HOLD 06-06 01:07 → PCU 3S 06-06 19:59
PROVIDERS: ADMIT Internal Medicine; ATTEND Internal Medicine
PROC: BW211ZZ Computerized Tomography (CT Scan) of Abdomen and Pelvis using Low Osmolar Contrast (ICD-10-PCS; principal; 2022-06-05)
PROC: 30233N1 Transfusion of Nonautologous Red Blood Cells into Peripheral Vein, Percutaneous Approach (ICD-10-PCS; 2022-06-05)
DX: K70.31 Alcoholic cirrhosis of liver with ascites (principal); K72.10 Chronic hepatic failure without coma; K92.0 Hematemesis; E88.09 Other disorders of plasma-protein metabolism, not elsewhere classified; D62 Acute posthemorrhagic anemia; I50.9 Heart failure, unspecified; F15.90 Other stimulant use, unspecified, uncomplicated; N18.9 Chronic kidney disease, unspecified; F17.200 Nicotine dependence, unspecified, uncomplicated; E87.6 Hypokalemia; K21.9 Gastro-esophageal reflux disease without esophagitis; L97.818 Non-pressure chronic ulcer of other part of right lower leg with other specified severity; L97.828 Non-pressure chronic ulcer of other part of left lower leg with other specified severity; Z90.710 Acquired absence of both cervix and uterus; Z87.442 Personal history of urinary calculi; Z56.0 Unemployment, unspecified; Z79.899 Other long term (current) drug therapy; Z88.8 Allergy status to other drugs, medicaments and biological substances
CPT/HCPCS: 36415; 36430; 43239; 74177; 80048; 80053; 82140; 83690; 83880; 85007; 85008; 85025; 85610; 85730; 86885; 86900; 86901; 86920; 87081; 93005; 99152; 99285; A4620; C9113; G0378; J0696; J1200; J2250; J2354; J3010; J3490; J7030; J7040; P9016; Q9967

== ENCOUNTER 2022-06-10 10:41 | Inpatient (IN) | payer MEDICAID ==
[~2022-06-10] VITALS: Ht 154.9 cm; Wt 91.1 kg
[~2022-06-10 10:41] MED LIST changes: +CEPH250C2 PO; -CEPH250T PO; +DOXY-457 PO; -DOXY100C77 PO; +FURO-150 PO; -FURO20TA4 PO; +PANT-47 PO; -PANT40TA54 PO; +POTA-207 PO; -POTA-82 PO; +rocuronium 10mg/ml inj IV ONE
[2022-06-10 11:20] LABS: BASOPHILS # (AUTO) 0.1 X10'3 (0-0.2); BASOPHILS % (AUTO) 0.4 % (0-1); EOSINOPHILS # (AUTO) 0.2 X10'3 (0-0.9); EOSINOPHILS % (AUTO) 1.3 % (0-6); HEMOGLOBIN 7.3 g/dl (12.0-16.0); LYMPHOCYTES # (AUTO) 2.8 X10'3 (1.1-4.8); LYMPHOCYTES % (AUTO) 22.9 % (21-51); MEAN CORPUSCULAR HEMOGLOBIN 30.4 PG (27.0-31.0); MEAN CORPUSCULAR HGB CONC 31.6 g/dL (33.0-36.5); MONOCYTES # (AUTO) 1.6 X10'3 (0-0.9); MONOCYTES % (AUTO) 12.7 % (2-12); NEUTROPHILS # (AUTO) 7.7 X10'3 (1.8-7.7); NEUTROPHILS % (AUTO) 62.7 % (42-75); PLATELET COUNT 163 X10'3 (140-440); RED CELL DISTRIBUTION WIDTH 21.7 % (11.5-14.5); WHITE BLOOD COUNT 12.3 X10'3 (4.5-11.0)
[2022-06-10 11:41] LABS: LACTIC SEPSIS 2.6 MMOL/L (0.4-2.0)
[2022-06-10 11:47] LABS: ALANINE AMINOTRANSFERASE 28 U/L (12-78); ALBUMIN 1.5 G/DL (3.4-5.0); ALBUMIN/GLOBULIN RATIO 0.4 (1.1-1.5); ALKALINE PHOSPHATASE 80 IU/L (46-116); ANION GAP 3 (8-16); ASPARTATE AMINO TRANSFERASE 31 U/L (10-37); BILIRUBIN,TOTAL 3.1 MG/DL (0.1-1.0); BLOOD UREA NITROGEN 28 MG/DL (7-18); BUN/CREATININE RATIO 34.1 (6.6-38.0); CALCIUM 7.6 MG/DL (8.5-10.1); CHLORIDE 100 MMOL/L (99-107); CREATININE 0.82 MG/DL (0.40-0.90); GLUCOSE 101 MG/DL (70-104); POTASSIUM 3.9 MMOL/L (3.5-5.1); SODIUM 134 MMOL/L (135-145); TOTAL CARBON DIOXIDE 30.9 MMOL/L (24-32); TOTAL PROTEIN 5.1 G/DL (6.4-8.2); eGFR 73 ML/MIN
[2022-06-10 11:51] LABS: ETHANOL < 0.010 GM/DL (0.0-0.010)
[2022-06-10 12:10] LABS: CLARITY,URINE CLEAR (Clear); GLUCOSE, URINE NEGATIVE (Neg); KETONES,URINE NEGATIVE (Neg); LEUKOCYTE ESTERASE ,URINE NEGATIVE (Neg); NITRITES, URINE NEGATIVE (Neg); OCCULT BLOOD,URINE NEGATIVE (Neg); PROTEIN,URINE NEGATIVE (Neg)
[2022-06-10 12:12] LABS: COLOR,URINE DARK YELLOW (Yellow); UA COLLECTION TYPE FOLEY CATH; URINE AMPHETAMINE SCREEN POSITIVE (Neg); URINE BARBITUATE SCREEN NEGATIVE (Neg); URINE BENZODIAZEPINES SCREEN NEGATIVE (Neg); URINE CANNABINOID SCREEN NEGATIVE (Neg); URINE COCAINE SCREEN NEGATIVE (Neg); URINE METHADONE SCREEN NEGATIVE (Neg); URINE OPIATE SCREEN NEGATIVE (Neg); URINE PHENCYCLIDINE SCREEN NEGATIVE (Neg)
[2022-06-10] MEDS ORDERED: normal saline 1000ML IV soln IV ONE (14:05)
[2022-06-10] MEDS ORDERED: octreotide inj. 1,250 MCG in normal saline 250ml IV soln 250 ML IV ONE (14:40)
[2022-06-10] MEDS ORDERED: pantoprazole 40MG/NS 100ML BAG 100 ML IV ONE (14:40)
[2022-06-10] MEDS ORDERED: pantoprazole 40mg IV 80 MG in normal saline 100ml IV soln 100 ML IV ONE (14:40)
[2022-06-10 14:43] LABS: MEAN CORPUSCULAR HEMOGLOBIN 29.8 PG (27.0-31.0); MEAN CORPUSCULAR HGB CONC 31.2 g/dL (33.0-36.5); MEAN CORPUSCULAR VOLUME 95.5 FL (78-98); MEAN PLATELET VOLUME 8.2 FL (7.4-10.4); PLATELET COUNT 170 X10'3 (140-440); WHITE BLOOD COUNT 13.6 X10'3 (4.5-11.0)
[2022-06-10] MEDS ORDERED: HYDROcodone/acetaminophen 10/325mg tab PO PRN (14:45)
[2022-06-10] MEDS ORDERED: magnesium 4gm in 100ml NS 100 ML IV PRN (14:45)
[2022-06-10] MEDS ORDERED: potassium Cl 20 mEq SR tablet PO PRN ×2 (14:45)
[2022-06-10] MEDS ORDERED: acetaminophen 325mg tablet PO PRN ×2 (14:45)
[2022-06-10] MEDS ORDERED: ondansetron 4mg rapidly disintigrating tab PO PRN (14:45)
[2022-06-10] MEDS ORDERED: magnesium hydroxide 30ml (MOM) UD suspension PO PRN (14:45)
[2022-06-10] MEDS ORDERED: magnesium Cl slow-release 64mg tablet PO PRN (14:45)
[2022-06-10] MEDS ORDERED: mag hydrox/Alum hydrox/simeth 30ml oral suspension PO PRN (14:45)
[2022-06-10] MEDS ORDERED: HYDROcodone/acetaminophen 5mg/325mg tablet PO PRN (14:45)
[2022-06-10] MEDS ORDERED: bisacodyl 10mg suppository rectal RC PRN (14:45)
[2022-06-10] MEDS ORDERED: octreotide inj. 1,250 MCG in normal saline 250ml IV soln 243.75 ML IV SCH (14:45)
[2022-06-10] MEDS ORDERED: potassium Cl 40MEQ/1/2NS 520ml 520 ML IV PRN (14:45)
[2022-06-10] MEDS ORDERED: HYDROmorphone/PF 0.2 MG/ML SYRINGE IV PRN (14:45)
[2022-06-10 14:48] LABS: HEMATOCRIT 20.1 % (35.0-45.0); HEMOGLOBIN 6.3 g/dl (12.0-16.0)
[2022-06-10] MEDS ORDERED: pantoprazole 40MG/NS 100ML BAG 100 ML IV SCH (15:00)
[2022-06-10] MEDS: pantoprazole 40MG/NS 100ML BAG 100 ML IV SCH ×2 (15:41→22:37)
[2022-06-10] MEDS: normal saline 1000ml 1,000 ML IV SCH (15:44)
[2022-06-10 15:55] LABS: APTT 36 SECONDS (22-32)
[2022-06-10] MEDS: HYDROmorphone inj. 0.5 MG/0.5 ML DISP.SYRIN IV PRN ×2 (16:09→21:30)
[2022-06-10 16:48] VITALS: BP 114/81
[2022-06-10 17:08] VITALS: BP 122/75
[2022-06-10 17:18] LABS: OCCULT BLOOD STOOL POSITIVE (Neg)
[2022-06-10 18:08] VITALS: BP 126/91
[2022-06-10 18:23] VITALS: BP 135/63
[2022-06-10] MEDS: K and/or MAG REPLACEMENT MC SCH (20:00)
[2022-06-10] MEDS ORDERED: temazepam 15mg capsule PO PRN (21:00)
--- NOTE | 2022-06-10 22:00 | NUR ---
Patient in room PARAS 357. I have received report from DANIEL Loredo and had the opportunity to ask questions and assume patient care.
[2022-06-10 22:03] LABS: HEMOGLOBIN 8.8 g/dl (12.0-16.0); MEAN CORPUSCULAR HGB CONC 32.7 g/dL (33.0-36.5); MEAN CORPUSCULAR VOLUME 94.9 FL (78-98); MEAN PLATELET VOLUME 8.3 FL (7.4-10.4); PLATELET COUNT 168 X10'3 (140-440); RED BLOOD COUNT 2.84 X10'6 (4.20-5.60); WHITE BLOOD COUNT 20.4 X10'3 (4.5-11.0)
[2022-06-10 22:30] VITALS: BP 115/83
[2022-06-11] MEDS: pantoprazole 40MG/NS 100ML BAG 100 ML IV SCH ×5 (00:38→21:00)
[2022-06-11 04:03] LABS: ALANINE AMINOTRANSFERASE 25 U/L (12-78); ALBUMIN 1.4 G/DL (3.4-5.0); ALBUMIN/GLOBULIN RATIO 0.4 (1.1-1.5); ALKALINE PHOSPHATASE 80 IU/L (46-116); ANION GAP 5 (8-16); ASPARTATE AMINO TRANSFERASE 34 U/L (10-37); BILIRUBIN,TOTAL 3.6 MG/DL (0.1-1.0); BLOOD UREA NITROGEN 35 MG/DL (7-18); BUN/CREATININE RATIO 35.7 (6.6-38.0); CALCIUM 7.4 MG/DL (8.5-10.1); CHLORIDE 102 MMOL/L (99-107); CREATININE 0.98 MG/DL (0.40-0.90); GLUCOSE 99 MG/DL (70-104); MAGNESIUM 1.8 MG/DL (1.5-2.4); POTASSIUM 4.4 MMOL/L (3.5-5.1); SODIUM 135 MMOL/L (135-145); TOTAL CARBON DIOXIDE 27.8 MMOL/L (24-32); eGFR 59 ML/MIN
--- NOTE | 2022-06-11 06:45 | NUR ---
Problems reprioritized. Patient report given, questions answered & plan of care reviewed with DANIEL Crain.
[2022-06-11 07:00] VITALS: BP 138/84
[2022-06-11] MEDS: K and/or MAG REPLACEMENT MC SCH ×2 (08:00→20:00)
[2022-06-11 08:31] LABS: HEMATOCRIT 26.6 % (35.0-45.0); HEMOGLOBIN 8.3 g/dl (12.0-16.0); MEAN CORPUSCULAR HEMOGLOBIN 29.8 PG (27.0-31.0); MEAN CORPUSCULAR HGB CONC 31.4 g/dL (33.0-36.5); MEAN CORPUSCULAR VOLUME 94.8 FL (78-98); MEAN PLATELET VOLUME 8.4 FL (7.4-10.4); PLATELET COUNT 161 X10'3 (140-440); WHITE BLOOD COUNT 15.3 X10'3 (4.5-11.0)
--- NOTE | 2022-06-11 10:17 | NUR ---
John Consult: Bennett Salazar w/ skin intact per EMR. Addendum: 06/11/22 at [address] Amended: Links added.
[2022-06-11 12:21] VITALS: BP 139/71
[2022-06-11 15:08] LABS: HEMATOCRIT 27.5 % (35.0-45.0); HEMOGLOBIN 8.6 g/dl (12.0-16.0); MEAN CORPUSCULAR HEMOGLOBIN 29.7 PG (27.0-31.0); MEAN CORPUSCULAR HGB CONC 31.3 g/dL (33.0-36.5); MEAN CORPUSCULAR VOLUME 95.2 FL (78-98); MEAN PLATELET VOLUME 8.3 FL (7.4-10.4); PLATELET COUNT 155 X10'3 (140-440); RED BLOOD COUNT 2.89 X10'6 (4.20-5.60); RED CELL DISTRIBUTION WIDTH 19.3 % (11.5-14.5); WHITE BLOOD COUNT 18.1 X10'3 (4.5-11.0)
--- NOTE | 2022-06-11 18:39 | NUR ---
Problems reprioritized. Patient report given, questions answered & plan of care reviewed with DANIEL Garsia.
--- NOTE | 2022-06-11 18:41 | NUR ---
PAGER ID: [phone] MESSAGE: [phone] Soy Rowan: last WBC increased to 18.1. lactic levels 2.6 and 3.1 with no redraw and no abx ordered. thanks, kevin 7669
--- NOTE | 2022-06-11 19:39 | NUR ---
US of phil being performed at this time Blood bank phone call and will be getting FFP ready. Pharmacy messaged about jeronimo Ferris order. Addendum: 06/11/22 at 1940 by Sun Jorge RN Amended: Links added.
[2022-06-11] MEDS: piperacillin/tazo 3.375gm/50ml 50 ML IV SCH (20:01)
[2022-06-11] MEDS: normal saline 1000ml 1,000 ML IV SCH (20:22)
[2022-06-11 22:30] VITALS: BP 115/75
--- NOTE | 2022-06-11 22:30 | NUR ---
FFP STARTED INFUSING AT THIS TIME, DOCUMENTED ON DOWNTIME FORM. Addendum: 06/11/22 at 2242 by Sun Jorge RN Amended: Links added.
[2022-06-12 00:12] VITALS: BP 139/59
[2022-06-12] MEDS: piperacillin/tazo 3.375gm/50ml 50 ML IV SCH ×4 (00:13→23:39)
[2022-06-12] MEDS: pantoprazole 40MG/NS 100ML BAG 100 ML IV SCH ×5 (01:00→21:42)
[2022-06-12 06:00] VITALS: BP 129/74
--- NOTE | 2022-06-12 06:33 | NUR ---
Problems reprioritized. Patient report given, questions answered & plan of care reviewed with Breann SANCHEZ. Addendum: 06/12/22 at 0634 by Sun Jorge RN Amended: Links added.
[2022-06-12 07:00] VITALS: BP 129/74
[2022-06-12] MEDS: K and/or MAG REPLACEMENT MC SCH ×2 (08:00→20:00)
[2022-06-12 08:08] LABS: BASOPHILS % (AUTO) 0.4 % (0-1); EOSINOPHILS # (AUTO) 0.2 X10'3 (0-0.9); EOSINOPHILS % (AUTO) 2.2 % (0-6); HEMATOCRIT 24.1 % (35.0-45.0); HEMOGLOBIN 7.8 g/dl (12.0-16.0); LYMPHOCYTES # (AUTO) 2.2 X10'3 (1.1-4.8); LYMPHOCYTES % (AUTO) 19.5 % (21-51); MEAN CORPUSCULAR HGB CONC 32.5 g/dL (33.0-36.5); MEAN CORPUSCULAR VOLUME 95.5 FL (78-98); MONOCYTES # (AUTO) 1.6 X10'3 (0-0.9); MONOCYTES % (AUTO) 14.1 % (2-12); NEUTROPHILS # (AUTO) 7.1 X10'3 (1.8-7.7); NEUTROPHILS % (AUTO) 63.8 % (42-75); PLATELET COUNT 129 X10'3 (140-440); RED BLOOD COUNT 2.52 X10'6 (4.20-5.60); RED CELL DISTRIBUTION WIDTH 19.2 % (11.5-14.5); WHITE BLOOD COUNT 11.1 X10'3 (4.5-11.0)
[2022-06-12 08:28] LABS: APTT 31 SECONDS (22-32)
[2022-06-12 08:30] LABS: ALANINE AMINOTRANSFERASE 18 U/L (12-78); ALBUMIN 1.6 G/DL (3.4-5.0); ALBUMIN/GLOBULIN RATIO 0.4 (1.1-1.5); ALKALINE PHOSPHATASE 79 IU/L (46-116); ANION GAP 6 (8-16); ASPARTATE AMINO TRANSFERASE 35 U/L (10-37); BILIRUBIN,TOTAL 3.6 MG/DL (0.1-1.0); BLOOD UREA NITROGEN 46 MG/DL (7-18); BUN/CREATININE RATIO 35.9 (6.6-38.0); CALCIUM 7.8 MG/DL (8.5-10.1); CHLORIDE 106 MMOL/L (99-107); CREATININE 1.28 MG/DL (0.40-0.90); GLUCOSE 105 MG/DL (70-104); LIPASE 307 U/L (73-393); MAGNESIUM 1.9 MG/DL (1.5-2.4); POTASSIUM 4.1 MMOL/L (3.5-5.1); SODIUM 139 MMOL/L (135-145); TOTAL CARBON DIOXIDE 27.5 MMOL/L (24-32); TOTAL PROTEIN 5.2 G/DL (6.4-8.2); eGFR 44 ML/MIN
[2022-06-12] MEDS: normal saline 1000ml 1,000 ML IV SCH ×2 (09:14→15:50)
[2022-06-12 09:50] LABS: ANISOCYTOSIS 2+; ELLIPTOCYTES FEW; HYPOCHROMASIA 1+; PLATELET ESTIMATE DECREASED; POLYCHROMASIA 1+
[2022-06-12 10:00] VITALS: BP 118/73
[2022-06-12] MEDS: octreotide inj. 500 MCG in normal saline 100ml IV soln 97.5 ML IV SCH (10:17)
--- NOTE | 2022-06-12 11:54 | NUR ---
Received order for consult. Went to go meet with patient and patient is asleep. I was unable to wake her. I will try again.
[2022-06-12] MEDS: HYDROmorphone inj. 0.5 MG/0.5 ML DISP.SYRIN IV PRN (12:38)
--- NOTE | 2022-06-12 15:05 | NUR ---
Page sent to PICC RN. [id number] Soy Rowan: unable to obtain IV access. if someone has the time can she get an us PIV? thankskevin
--- NOTE | 2022-06-12 15:28 | NUR ---
PRESSURE ULCER EDUCATION: DEFINITION: A pressure ulcer is an area of skin that breaks down when you stay in one position too long. The constant pressure against the skin reduces the blood flow to that area and the affected tissue dies. CAUSES: "Being bedridden or in a wheelchair "Fragile skin "Having a chronic condition, such as diabetes or vascular disease "Inability to move certain parts of your body without assistance "Older age "Incontinence of urine or stool SYMPTOMS: "A reddened area that DOES NOT turn white when pressed on - this can be the beginning of a pressure ulcer "A blister, deep sore or a crater - these can be advanced pressure ulcers FIRST AID: "Relieve the pressure on this area "Keep the area clean and dry "Call your primary doctor if you see any of the above symptoms "DO NOT massage the area "DO NOT use a donut shaped or ring shaped pillow- these actually interfere with the blood flow and cause complications PREVENTION: "Check for pressure ulcers everyday "Change position at least every two hours to relieve pressure "Use items that help relieve pressure- pillows, sheepskin, foam padding, and powders. "Keep skin clean and dry "Eat healthy well balanced meals "Exercise daily IF YOU SEE ANY OF THESE SYMPTOMS WHILE IN THE HOSPITAL - TELL YOUR NURSE IMMEDIATELY. IF YOU SEE ANY OF THESE SYMPTOMS WHILE AT HOME OR HAVE ANY QUESTIONS OR CONCERNS ABOUT PRESSURE ULCERS - CALL YOUR PRIMARY DOCTOR IMMEDIATELY. Addendum: 06/12/22 at 1528 by Rachell Malloy LVN Amended: Links added.
[2022-06-12 18:00] VITALS: BP 120/69
--- NOTE | 2022-06-12 18:12 | NUR ---
I have reviewed and agree with all interventions, assessments performed and documented by MILTON Corley.
--- NOTE | 2022-06-12 18:43 | NUR ---
Problems reprioritized. Patient report given, questions answered & plan of care reviewed with DANIEL Garsia.
[2022-06-12 22:00] VITALS: BP 133/71
[2022-06-13] VITALS (25 sets, daily range): BP systolic 97–177; BP diastolic 62–127
[2022-06-13] MEDS: pantoprazole 40MG/NS 100ML BAG 100 ML IV SCH ×6 (01:00→23:10)
[2022-06-13] MEDS: normal saline 1000ml 1,000 ML IV SCH ×3 (01:17→20:29)
[2022-06-13] MEDS: octreotide inj. 500 MCG in normal saline 100ml IV soln 97.5 ML IV SCH ×2 (05:17→20:37)
--- NOTE | 2022-06-13 05:38 | NUR ---
Pt had emesis after consuming entire water pitcher. Pt seems unable to slow down her fluid consumption. Neighbor gave pt a red color faroese icey, which unfortunately is what she threw up. Addendum: 06/13/22 at 0543 by Sun Jorge RN Amended: Links added.
[2022-06-13 06:07] LABS: ALANINE AMINOTRANSFERASE 18 U/L (12-78); ALBUMIN 1.2 G/DL (3.4-5.0); ALBUMIN/GLOBULIN RATIO 0.3 (1.1-1.5); ALKALINE PHOSPHATASE 69 IU/L (46-116); ANION GAP 5 (8-16); ASPARTATE AMINO TRANSFERASE 38 U/L (10-37); BILIRUBIN,TOTAL 2.3 MG/DL (0.1-1.0); BLOOD UREA NITROGEN 41 MG/DL (7-18); CHLORIDE 110 MMOL/L (99-107); CREATININE 1.14 MG/DL (0.40-0.90); GLUCOSE 107 MG/DL (70-104); SODIUM 140 MMOL/L (135-145); TOTAL CARBON DIOXIDE 24.8 MMOL/L (24-32); TOTAL PROTEIN 4.8 G/DL (6.4-8.2); eGFR 50 ML/MIN
[2022-06-13 06:09] LABS: POTASSIUM 3.9 MMOL/L (3.5-5.1)
--- NOTE | 2022-06-13 06:29 | NUR ---
Problems reprioritized. Patient report given, questions answered & plan of care reviewed with Ana Lilia Bland. Addendum: 06/13/22 at 0630 by Sun Jorge RN Amended: Links added.
[2022-06-13] MEDS: K and/or MAG REPLACEMENT MC SCH ×2 (08:00→19:22)
[2022-06-13] MEDS: piperacillin/tazo 3.375gm/50ml 50 ML IV SCH ×2 (08:18→23:10)
--- NOTE | 2022-06-13 10:24 | NUR ---
PAGER ID: [phone] MESSAGE: [phone] Soy LARSEN: PATIENT IS VOMITING BRIGHT RED BLOOD SO FAR ABOUT 40MLS. LAB IS DRAWING A CBC AT THE MOMENT. THANKS, TAVIA [phone]
[2022-06-13] MEDS: ondansetron/PF 4mg/2ml inj IV PRN (10:38)
[2022-06-13] MEDS ORDERED: ringers solution, lacted 1,000 ML IV ONE (10:55)
--- NOTE | 2022-06-13 11:00 | NUR ---
patient began vomiting bright red blood. Dr. Bloom notified he arrived to the floor and placed new orders. patients linens/gown changed.
[2022-06-13 11:02] LABS: BASOPHILS # (AUTO) 0.1 X10'3 (0-0.2); BASOPHILS % (AUTO) 0.6 % (0-1); EOSINOPHILS # (AUTO) 0.4 X10'3 (0-0.9); EOSINOPHILS % (AUTO) 2.9 % (0-6); LYMPHOCYTES # (AUTO) 3.1 X10'3 (1.1-4.8); LYMPHOCYTES % (AUTO) 24.7 % (21-51); MEAN CORPUSCULAR HEMOGLOBIN 30.4 PG (27.0-31.0); MEAN CORPUSCULAR HGB CONC 31.3 g/dL (33.0-36.5); MEAN CORPUSCULAR VOLUME 97.2 FL (78-98); MEAN PLATELET VOLUME 8.2 FL (7.4-10.4); MONOCYTES # (AUTO) 2.3 X10'3 (0-0.9); MONOCYTES % (AUTO) 18.5 % (2-12); NEUTROPHILS # (AUTO) 6.7 X10'3 (1.8-7.7); NEUTROPHILS % (AUTO) 53.3 % (42-75); PLATELET COUNT 110 X10'3 (140-440); RED BLOOD COUNT 1.74 X10'6 (4.20-5.60); WHITE BLOOD COUNT 12.6 X10'3 (4.5-11.0)
[2022-06-13 11:07] LABS: HEMATOCRIT 16.9 % (35.0-45.0); HEMOGLOBIN 5.3 g/dl (12.0-16.0)
[2022-06-13 11:21] LABS: APTT 38 SECONDS (22-32)
[2022-06-13 11:31] LABS: ANISOCYTOSIS 2+; PLATELET ESTIMATE DECREASED; POIKILOCYTOSIS FEW; POLYCHROMASIA 1+
[2022-06-13] MEDS ORDERED: MIDAZolam 1 MG/ML 5ML VIAL ONE ×2 (11:39→16:32)
[2022-06-13] MEDS ORDERED: fentaNYL/PF 50MCG/1 ML 2ML syringe ONE ×2 (11:39→16:32)
[2022-06-13] MEDS ORDERED: LIDOcaine Viscous 15ml cup ONE ×2 (11:39→16:32)
--- NOTE | 2022-06-13 12:30 | NUR ---
GI RN at bedside. Dr. Burnett is going to take the patient for an EGD around 1600 after patient has received blood transfusion. GI nurse took NG supplies with her and said NG will be placed while patient is in GI lab if Dr. Burnett decides he still wants it in.
--- NOTE | 2022-06-13 13:00 | NUR ---
PATIENT TRANSFERRED TO ROOM 2009. BEDSIDE REPORT GIVEN TO ZAIRA SANCHEZ. ALL BELONGINGS, MEDICATIONS, AND CHART TAKEN WITH PATIENT.
[2022-06-13] MEDS ORDERED: LIDOcaine 1% (10mg/ml) 2ml vial ONE (13:49)
[2022-06-13] MEDS ORDERED: NORepinephrine 8mg/ 250ml NS 250 ML IV ONE (14:27)
[2022-06-13] MEDS ORDERED: FENTANYL-0.9 % NACL/PF 100 ML IV PRN (15:35)
[2022-06-13] MEDS ORDERED: propofol 1000mg/100ml bottle 100 ML IV ONE (15:45)
[2022-06-13 15:52] LABS: ABG BASE EXCESS -6.8 mmol/L (-2.0-2.0); ABG HCO3 19.4 mmol/L (22.0-26.0); ABG PCO2 (T) 41.6 mmHg (32.0-45.0); ABG PO2 (T) 133.7 mmHg (75.0-100.0); FCOHb 0.3 % (0.0-3.9); FMetHb 0.5 % (0.0-1.5); FO2Hb 97.2 % (94-97); PEEP 8 cm H2O; RESPIRATORY RATE 18 b/min; TIDAL VOLUME 450 mL; TOTAL HEMOGLOBIN 10.5 G/dl (12.0-16.0)
[2022-06-13 16:12] LABS: HEMATOCRIT 28.9 % (35.0-45.0); HEMOGLOBIN 9.4 g/dl (12.0-16.0); MEAN CORPUSCULAR HEMOGLOBIN 29.2 PG (27.0-31.0); MEAN CORPUSCULAR HGB CONC 32.5 g/dL (33.0-36.5); MEAN PLATELET VOLUME 7.3 FL (7.4-10.4); RED BLOOD COUNT 3.21 X10'6 (4.20-5.60); RED CELL DISTRIBUTION WIDTH 16.4 % (11.5-14.5); WHITE BLOOD COUNT 22.5 X10'3 (4.5-11.0)
[2022-06-13 16:26] LABS: ALANINE AMINOTRANSFERASE 9 U/L (12-78); ALBUMIN 1.1 G/DL (3.4-5.0); ALBUMIN/GLOBULIN RATIO 0.6 (1.1-1.5); ALKALINE PHOSPHATASE 39 IU/L (46-116); ANION GAP 7 (8-16); APTT 66 SECONDS (22-32); ASPARTATE AMINO TRANSFERASE 22 U/L (10-37); BILIRUBIN,TOTAL 1.4 MG/DL (0.1-1.0); BLOOD UREA NITROGEN 35 MG/DL (7-18); BUN/CREATININE RATIO 38.5 (6.6-38.0); CHLORIDE 115 MMOL/L (99-107); CREATININE 0.91 MG/DL (0.40-0.90); GLUCOSE 169 MG/DL (70-104); POTASSIUM 3.8 MMOL/L (3.5-5.1); SODIUM 143 MMOL/L (135-145); TOTAL CARBON DIOXIDE 21.2 MMOL/L (24-32); eGFR 65 ML/MIN
[2022-06-13 16:32] LABS: CALCIUM 5.6 MG/DL (8.5-10.1)
[2022-06-13 16:34] LABS: PLATELET COUNT 38 X10'3 (140-440)
[2022-06-13 16:44] LABS: ABG BASE EXCESS -5.6 mmol/L (-2.0-2.0); ABG HCO3 19.1 mmol/L (22.0-26.0); ABG PCO2 (T) 34.1 mmHg (32.0-45.0); ABG PO2 (T) 290.4 mmHg (75.0-100.0); FCOHb 0.3 % (0.0-3.9); FMetHb 0.5 % (0.0-1.5); FO2Hb 98.2 % (94-97); PEEP 8 cm H2O; RESPIRATORY RATE 18 b/min; TIDAL VOLUME 450 mL; TOTAL HEMOGLOBIN 8.5 G/dl (12.0-16.0)
--- NOTE | 2022-06-13 18:15 | NUR ---
Patient in room CICU 2009. I have received report from Ishan SANCHEZ and had the opportunity to ask questions and assume patient care.
--- NOTE | 2022-06-13 18:22 | NUR ---
Patient arrived to CICU rm 2010@approx 1215. Nursing staff at bedside with respiratory. Quad lumen central line placed by Dr. Mora. femoral artline successfully in right groin. post line placement patient began coughing up blood from her mouth. Continuous suctioning appreciated. Dr Mora intubated patient with RT and nursing staff @ bedside. Rapid fluids and PRBC's initiated. Cryoprecipitate, FFP & platelets administered. Patient placed on Diprivan and Fentanyl gtts.administered. Awaited Dr. Burnett and Gi lab to band apparent varices. Gi lab successfully banded varices. gave verbal order "not to" place an gastric tube. Met with immediate family and family agreed to make patient a DNR. Two person verification of DNR appreciated. Ishan Castrejon RN & Dr. Mora. Report given to Yue SANCHEZ. to take over care @ shift change.
[2022-06-13 19:02] LABS: BASOPHILS % (AUTO) 0.3 % (0-1); EOSINOPHILS % (AUTO) 0.3 % (0-6); HEMATOCRIT 30.1 % (35.0-45.0); LYMPHOCYTES # (AUTO) 1.2 X10'3 (1.1-4.8); LYMPHOCYTES % (AUTO) 8.7 % (21-51); MEAN CORPUSCULAR HGB CONC 33.3 g/dL (33.0-36.5); MEAN CORPUSCULAR VOLUME 89.9 FL (78-98); MEAN PLATELET VOLUME 7.2 FL (7.4-10.4); MONOCYTES % (AUTO) 13.9 % (2-12); NEUTROPHILS # (AUTO) 10.8 X10'3 (1.8-7.7); NEUTROPHILS % (AUTO) 76.8 % (42-75); PLATELET COUNT 66 X10'3 (140-440); RED BLOOD COUNT 3.35 X10'6 (4.20-5.60); RED CELL DISTRIBUTION WIDTH 15.9 % (11.5-14.5)
[2022-06-13] MEDS: propofol 1000mg/100ml bottle 100 ML IV SCH (19:04)
[2022-06-13 19:15] LABS: ABG BASE EXCESS -7.2 mmol/L (-2.0-2.0); ABG HCO3 17.8 mmol/L (22.0-26.0); ABG OXYGEN SATURATION 99.1 % (94-97); ABG PCO2 (T) 32.1 mmHg (32.0-45.0); ABG PO2 (T) 393.8 mmHg (75.0-100.0); FCOHb 0.3 % (0.0-3.9); FMetHb 0.3 % (0.0-1.5); FO2Hb 98.5 % (94-97); PATIENT TEMPERATURE 35.7; PEEP 8 cm H2O; RESPIRATORY RATE 18 b/min; TIDAL VOLUME 450 mL; TOTAL HEMOGLOBIN 11.3 G/dl (12.0-16.0)
[2022-06-13 19:16] LABS: APTT 44 SECONDS (22-32)
[2022-06-13 19:18] LABS: ALANINE AMINOTRANSFERASE 13 U/L (12-78); ALBUMIN 1.4 G/DL (3.4-5.0); ALBUMIN/GLOBULIN RATIO 0.8 (1.1-1.5); ALKALINE PHOSPHATASE 38 IU/L (46-116); ANION GAP 7 (8-16); ASPARTATE AMINO TRANSFERASE 23 U/L (10-37); BILIRUBIN,TOTAL 2.5 MG/DL (0.1-1.0); BLOOD UREA NITROGEN 36 MG/DL (7-18); BUN/CREATININE RATIO 40.4 (6.6-38.0); CREATININE 0.89 MG/DL (0.40-0.90); GLUCOSE 138 MG/DL (70-104); POTASSIUM 3.9 MMOL/L (3.5-5.1); SODIUM 143 MMOL/L (135-145); TOTAL CARBON DIOXIDE 21.1 MMOL/L (24-32); TOTAL PROTEIN 3.1 G/DL (6.4-8.2); eGFR 66 ML/MIN
[2022-06-13 19:23] LABS: CHLORIDE 115 MMOL/L (99-107)
[2022-06-13 19:24] LABS: CALCIUM 5.8 MG/DL (8.5-10.1)
--- NOTE | 2022-06-13 19:30 | NUR ---
Dalia FLAT SURFACER JEWEL called and notified/updated on patient's current status. Dalia FLAT SURFACER JEWEL notified of patient's critical calcium 5.8. New orders received. FLAT SURFACER JEWEL states to call and notify him if patient's hemoglobin is below 7. Will continue to monitor patient.
[2022-06-13] MEDS ORDERED: calcium gluconate inj. 2 GM in normal saline 100ml IV soln 100 ML IV ONE (20:00)
[2022-06-13] MEDS: CALCIUM GLUC 1gm/50ml NACL,iso 50 ML IV SCH ×2 (20:28→22:22)
[2022-06-13 21:00] LABS: ABG BASE EXCESS -6.7 mmol/L (-2.0-2.0); ABG HCO3 18.3 mmol/L (22.0-26.0); ABG OXYGEN SATURATION 98.5 % (94-97); ABG PCO2 (T) 33.7 mmHg (32.0-45.0); ABG PO2 (T) 143.1 mmHg (75.0-100.0); FCOHb 0.3 % (0.0-3.9); FMetHb 0.3 % (0.0-1.5); FO2Hb 97.9 % (94-97); PATIENT TEMPERATURE 36.1; PEEP 8 cm H2O; TOTAL HEMOGLOBIN 12.4 G/dl (12.0-16.0)
[2022-06-13 22:40] LABS: HEMATOCRIT 35.3 % (35.0-45.0); HEMOGLOBIN 11.7 g/dl (12.0-16.0); MEAN CORPUSCULAR HEMOGLOBIN 29.8 PG (27.0-31.0); MEAN CORPUSCULAR HGB CONC 33.1 g/dL (33.0-36.5); MEAN CORPUSCULAR VOLUME 89.9 FL (78-98); MEAN PLATELET VOLUME 7.8 FL (7.4-10.4); PLATELET COUNT 82 X10'3 (140-440); RED BLOOD COUNT 3.92 X10'6 (4.20-5.60); RED CELL DISTRIBUTION WIDTH 15.9 % (11.5-14.5)
[2022-06-13 22:44] LABS: WHITE BLOOD COUNT 26.1 X10'3 (4.5-11.0)
[2022-06-14] VITALS (35 sets, daily range): BP systolic 51–132; BP diastolic 51–78
[2022-06-14 02:42] LABS: BASOPHILS # (AUTO) 0.1 X10'3 (0-0.2); HEMOGLOBIN 11.3 g/dl (12.0-16.0); MONOCYTES # (AUTO) 2.6 X10'3 (0-0.9); MONOCYTES % (AUTO) 10.5 % (2-12); RED CELL DISTRIBUTION WIDTH 15.8 % (11.5-14.5)
[2022-06-14 02:45] LABS: BASOPHILS % (AUTO) 0.3 % (0-1); EOSINOPHILS # (AUTO) 0.2 X10'3 (0-0.9); EOSINOPHILS % (AUTO) 0.9 % (0-6); HEMATOCRIT 33.9 % (35.0-45.0); LYMPHOCYTES # (AUTO) 2.8 X10'3 (1.1-4.8); LYMPHOCYTES % (AUTO) 11.1 % (21-51); MEAN CORPUSCULAR HEMOGLOBIN 29.8 PG (27.0-31.0); MEAN CORPUSCULAR HGB CONC 33.5 g/dL (33.0-36.5); MEAN CORPUSCULAR VOLUME 89.2 FL (78-98); MEAN PLATELET VOLUME 8.1 FL (7.4-10.4); NEUTROPHILS # (AUTO) 19.3 X10'3 (1.8-7.7); NEUTROPHILS % (AUTO) 77.2 % (42-75); PLATELET COUNT 79 X10'3 (140-440)
[2022-06-14 02:50] LABS: APTT 32 SECONDS (22-32)
[2022-06-14 02:57] LABS: ALANINE AMINOTRANSFERASE 15 U/L (12-78); ALBUMIN 1.7 G/DL (3.4-5.0); ALKALINE PHOSPHATASE 50 IU/L (46-116); ANION GAP 6 (8-16); ASPARTATE AMINO TRANSFERASE 29 U/L (10-37); BILIRUBIN,TOTAL 5.8 MG/DL (0.1-1.0); BLOOD UREA NITROGEN 36 MG/DL (7-18); CALCIUM 6.9 MG/DL (8.5-10.1); CHLORIDE 114 MMOL/L (99-107); GLUCOSE 104 MG/DL (70-104); MAGNESIUM 1.6 MG/DL (1.5-2.4); POTASSIUM 3.8 MMOL/L (3.5-5.1); SODIUM 143 MMOL/L (135-145); TOTAL CARBON DIOXIDE 22.9 MMOL/L (24-32); eGFR 58 ML/MIN
[2022-06-14 02:59] LABS: ALBUMIN/GLOBULIN RATIO 0.8 (1.1-1.5); TOTAL PROTEIN 3.8 G/DL (6.4-8.2); TRIGLYCERIDES 40 MG/DL (20-135)
[2022-06-14] MEDS: pantoprazole 40MG/NS 100ML BAG 100 ML IV SCH ×4 (03:45→19:41)
[2022-06-14] MEDS: propofol 1000mg/100ml bottle 100 ML IV SCH (03:49)
[2022-06-14 04:07] LABS: ABG BASE EXCESS -3.5 mmol/L (-2.0-2.0); ABG HCO3 18.9 mmol/L (22.0-26.0); ABG OXYGEN SATURATION 97.3 % (94-97); ABG PCO2 (T) 26.2 mmHg (32.0-45.0); ABG PO2 (T) 93.7 mmHg (75.0-100.0); FCOHb 0.3 % (0.0-3.9); FMetHb 0.3 % (0.0-1.5); FO2Hb 96.7 % (94-97); PATIENT TEMPERATURE 36.8; PEEP 8 cm H2O; RESPIRATORY RATE 18 b/min; TIDAL VOLUME 450 mL; TOTAL HEMOGLOBIN 11.5 G/dl (12.0-16.0)
[2022-06-14] MEDS: octreotide inj. 500 MCG in normal saline 100ml IV soln 97.5 ML IV SCH (05:47)
--- NOTE | 2022-06-14 06:24 | NUR ---
Problems reprioritized. Patient report given, questions answered & plan of care reviewed with Myesha SANCHEZ.
--- NOTE | 2022-06-14 06:45 | NUR ---
Patient in room [facility] 2009. I have received report from Yue SANCHEZ and had the opportunity to ask questions and assume patient care. Addendum: 06/14/22 at 0646 by Myesha Fernandez RN Amended: Links added.
[2022-06-14 06:50] LABS: HEMOGLOBIN 10.4 g/dl (12.0-16.0); MEAN CORPUSCULAR HEMOGLOBIN 29.8 PG (27.0-31.0); MEAN CORPUSCULAR HGB CONC 33.5 g/dL (33.0-36.5); MEAN PLATELET VOLUME 8.2 FL (7.4-10.4); PLATELET COUNT 75 X10'3 (140-440); RED BLOOD COUNT 3.48 X10'6 (4.20-5.60); RED CELL DISTRIBUTION WIDTH 16.1 % (11.5-14.5); WHITE BLOOD COUNT 20.1 X10'3 (4.5-11.0)
[2022-06-14] MEDS: piperacillin/tazo 3.375gm/50ml 50 ML IV SCH ×3 (07:31→23:39)
[2022-06-14] MEDS: K and/or MAG REPLACEMENT MC SCH ×2 (07:33→19:41)
[2022-06-14 07:42] LABS: NUCLEATED RED BLOOD CELLS 3 /100WBC (0-0); TOTAL CELLS COUNTED 100
[2022-06-14 07:43] LABS: ANISOCYTOSIS 1+; PLATELET ESTIMATE DECREASED; SMUDGE CELLS 1+
[2022-06-14 07:44] LABS: POIKILOCYTOSIS 1+; POLYCHROMASIA 2+
--- NOTE | 2022-06-14 09:27 | NUR ---
Weekly wound pics obtained. Addendum: 06/14/22 at 0924 by Myesha Fernandez RN Amended: Links added.
--- NOTE | 2022-06-14 09:44 | NUR ---
Sedation vacation started at 0840. Pt. remains unresponsive.
[2022-06-14 10:47] LABS: APTT 43 SECONDS (22-32)
--- NOTE | 2022-06-14 11:05 | NUR ---
Dr. Burnett here to see pt. Updated on plan of care, VS, labs. etc. Stated he may take another look (scope) at pt. in a couple days to assess bleeding.
[2022-06-14 11:12] LABS: HEMOGLOBIN 9.5 g/dl (12.0-16.0); MEAN CORPUSCULAR HEMOGLOBIN 29.2 PG (27.0-31.0); MEAN CORPUSCULAR HGB CONC 32.8 g/dL (33.0-36.5); MEAN CORPUSCULAR VOLUME 89.2 FL (78-98); MEAN PLATELET VOLUME 8.7 FL (7.4-10.4); PLATELET COUNT 72 X10'3 (140-440); RED BLOOD COUNT 3.25 X10'6 (4.20-5.60); RED CELL DISTRIBUTION WIDTH 15.7 % (11.5-14.5)
[2022-06-14] MEDS: normal saline 1000ml 1,000 ML IV SCH ×3 (11:14→23:00)
--- NOTE | 2022-06-14 14:00 | NUR ---
Dr. Mora in to see pt. Notified that pt. is not waking up despite sedation (Fentanyl and Propofol) being off since [address] Mora in to assess pt's neuro status. + gag and corneals noted.
[2022-06-14 16:11] LABS: HEMATOCRIT 29.7 % (35.0-45.0); MEAN CORPUSCULAR HGB CONC 33.5 g/dL (33.0-36.5); MEAN CORPUSCULAR VOLUME 89.5 FL (78-98); MEAN PLATELET VOLUME 8.6 FL (7.4-10.4); PLATELET COUNT 73 X10'3 (140-440); RED BLOOD COUNT 3.32 X10'6 (4.20-5.60); WHITE BLOOD COUNT 17.1 X10'3 (4.5-11.0)
[2022-06-14 16:32] LABS: APTT 38 SECONDS (22-32)
--- NOTE | 2022-06-14 18:06 | NUR ---
Problems reprioritized. Patient report given, questions answered & plan of care reviewed with Yue SANCHEZ.
--- NOTE | 2022-06-14 18:10 | NUR ---
Patient in room CICU 2009. I have received report from Myesha SANCHEZ and had the opportunity to ask questions and assume patient care.
--- NOTE | 2022-06-14 18:29 | NUR ---
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 I clocked in to work 06/13/22 at 1753 and did not get report from Ishan Castrejon RN until 1805. Lab has been notified that I was not involved with transfusions, that the downtime infusion sheets were not signed by me.
[2022-06-14 21:25] LABS: HEMATOCRIT 30.3 % (35.0-45.0); HEMOGLOBIN 9.9 g/dl (12.0-16.0); MEAN CORPUSCULAR HEMOGLOBIN 29.4 PG (27.0-31.0); MEAN CORPUSCULAR HGB CONC 32.6 g/dL (33.0-36.5); MEAN CORPUSCULAR VOLUME 90.2 FL (78-98); MEAN PLATELET VOLUME 8.6 FL (7.4-10.4); PLATELET COUNT 77 X10'3 (140-440); RED BLOOD COUNT 3.36 X10'6 (4.20-5.60); WHITE BLOOD COUNT 18.6 X10'3 (4.5-11.0)
[2022-06-14 21:37] LABS: APTT 37 SECONDS (22-32)
[2022-06-15] VITALS (34 sets, daily range): BP systolic 117–158; BP diastolic 56–106
[2022-06-15] MEDS: pantoprazole 40MG/NS 100ML BAG 100 ML IV SCH ×2 (01:20→07:01)
[2022-06-15] MEDS: octreotide inj. 500 MCG in normal saline 100ml IV soln 97.5 ML IV SCH (01:22)
[2022-06-15 03:27] LABS: APTT 39 SECONDS (22-32)
[2022-06-15 03:34] LABS: ALANINE AMINOTRANSFERASE 15 U/L (12-78); ALBUMIN 1.4 G/DL (3.4-5.0); ALKALINE PHOSPHATASE 48 IU/L (46-116); ANION GAP 5 (8-16); ASPARTATE AMINO TRANSFERASE 25 U/L (10-37); BILIRUBIN,TOTAL 7.4 MG/DL (0.1-1.0); BLOOD UREA NITROGEN 37 MG/DL (7-18); BUN/CREATININE RATIO 34.6 (6.6-38.0); CALCIUM 7.3 MG/DL (8.5-10.1); CHLORIDE 114 MMOL/L (99-107); CREATININE 1.07 MG/DL (0.40-0.90); GLUCOSE 105 MG/DL (70-104); POTASSIUM 3.8 MMOL/L (3.5-5.1); SODIUM 143 MMOL/L (135-145); TOTAL CARBON DIOXIDE 24.2 MMOL/L (24-32); eGFR 54 ML/MIN
[2022-06-15 03:36] LABS: ALBUMIN/GLOBULIN RATIO 0.6 (1.1-1.5); TOTAL PROTEIN 3.7 G/DL (6.4-8.2)
[2022-06-15 03:48] LABS: ABG BASE EXCESS -2.2 mmol/L (-2.0-2.0); ABG HCO3 20.6 mmol/L (22.0-26.0); ABG OXYGEN SATURATION 96.5 % (94-97); ABG PCO2 (T) 27.7 mmHg (32.0-45.0); ABG PO2 (T) 83.8 mmHg (75.0-100.0); ALLEN'S TEST Modified; FCOHb 0.5 % (0.0-3.9); FMetHb 0.2 % (0.0-1.5); FO2Hb 95.8 % (94-97); PATIENT TEMPERATURE 36.2; PEEP 8 cm H2O; RESPIRATORY RATE 12 b/min; TIDAL VOLUME 450 mL; TOTAL HEMOGLOBIN 10.5 G/dl (12.0-16.0)
--- NOTE | 2022-06-15 06:13 | NUR ---
Problems reprioritized. Patient report given, questions answered & plan of care reviewed with Carlos SANCHEZ.
[2022-06-15] MEDS: piperacillin/tazo 3.375gm/50ml 50 ML IV SCH ×2 (07:43→15:33)
[2022-06-15] MEDS: K and/or MAG REPLACEMENT MC SCH ×2 (08:00→20:00)
[2022-06-15] MEDS ORDERED: fentaNYL/PF 50MCG/1 ML 2ML syringe ONE (09:32)
[2022-06-15] MEDS ORDERED: proCHLORperazine 10 MG/2 ml inj ONE (09:33)
[2022-06-15] MEDS ORDERED: LIDOcaine Viscous 15ml cup ONE (09:33)
[2022-06-15] MEDS ORDERED: MIDAZolam 1 MG/ML 5ML VIAL ONE (09:33)
--- NOTE | 2022-06-15 10:59 | NUR ---
Initial: Pt intubated admit DX encephalopathy, hematemesis w/ massive UGIB s/p EGD w/ banding, liver cirrhosis, and thrombocytopenia per EMR. Pt NPO pending corpak placement and EN to start today per fruit checker at rounds; day 5 no real nutrition outside two clear liquid meals this admit. LBM 06/13 w/ lactulose to start today per MD. Thiamine, folic acid to start for etoh hx per MD. TF recs below using IBW pending scaled wt this admit; pending TF consult. Will monitor for further nutrition intervention needs this admit. Rec: 1. Once continuous TF per MD; Vital HP at 54ml/hr goal; to provide 1296ml volume/day, 1296 kcals, 1083ml water, and 113g protein. 2. Once TF; additional water flush per MD, 3+ edema on NS; monitor serum Na 3. Once TF; PALB Q /; daily scaled wts 4. routine bowel regimen, lactulose per MD 5. scaled wt this admit 6. upon extubation; advance diet as medically indicated per TOBACCO DRIER OPERATOR/MD recs to heart healthy Addendum: 06/15/22 at [address] Amended: Links added.
[2022-06-15] MEDS ORDERED: lactulose 20gm/30ml cup PO SCH (12:00)
[2022-06-15] MEDS: HYDROmorphone inj. 0.5 MG/0.5 ML DISP.SYRIN IV PRN (13:23)
--- NOTE | 2022-06-15 13:52 | NUR ---
TF Consult: Pt w/ krishna in place and TF to start; see recs below. Rec: 1. Continuous TF per MD using Vital HP at 54ml/hr goal; to provide 1296ml volume/day, 1296 kcals, 1083ml water, and 113g protein. 2. additional water flush per MD, 3+ edema on NS; monitor serum Na 3. PALB Q /; daily scaled wts 4. routine bowel regimen, lactulose per MD 5. scaled wt this admit 6. upon extubation; advance diet as medically indicated per FAST FOOD MANAGER/MD recs to heart healthy Addendum: 06/15/22 at [address] Amended: Links added.
[2022-06-15] MEDS ORDERED: mag hydrox/Alum hydrox/simeth 30ml oral suspension CORPAK PRN (15:34)
[2022-06-15] MEDS ORDERED: acetaminophen 325mg/10.15ml oral unit dose solution CORPAK PRN ×2 (15:34)
[2022-06-15] MEDS ORDERED: magnesium hydroxide 30ml (MOM) UD suspension CORPAK PRN (15:35)
[2022-06-15] MEDS: lactulose 20gm/30ml cup CORPAK SCH ×2 (16:00→20:00)
--- NOTE | 2022-06-15 17:12 | NUR ---
Spoke with Dr Mora and pt's next of kin son Junior Carmona. Pt's family wishes to extubate pt to comfort care.
[2022-06-15] MEDS ORDERED: morphine 10mg/ml inj. IV PRN (17:35)
--- NOTE | 2022-06-15 17:47 | NUR ---
[facility] is requesting that extubation be delayed while pt's chart is reviewed for potential organ donation as pt is a registered organ donor.
--- NOTE | 2022-06-15 18:26 | NUR ---
Problems reprioritized. Patient report given, questions answered & plan of care reviewed with DANIEL Turner.
--- NOTE | 2022-06-15 18:27 | NUR ---
Patient in room CICU 2009. I have received report from Carlos SANCHEZ and had the opportunity to ask questions and assume patient care.
--- NOTE | 2022-06-15 18:45 | NUR ---
Call received from donor network stating they will come in to assess patient. Caller states attempts made to call patient's daughter, Anahi, but daughter has not called back. Will continue to monitor patient.
[2022-06-15 19:16] LABS: BASOPHILS % (AUTO) 0.2 % (0-1); EOSINOPHILS # (AUTO) 0.5 X10'3 (0-0.9); EOSINOPHILS % (AUTO) 2.4 % (0-6); HEMATOCRIT 32.2 % (35.0-45.0); HEMOGLOBIN 10.2 g/dl (12.0-16.0); MEAN CORPUSCULAR HEMOGLOBIN 29.4 PG (27.0-31.0); MEAN CORPUSCULAR HGB CONC 31.7 g/dL (33.0-36.5); MEAN CORPUSCULAR VOLUME 92.8 FL (78-98); MONOCYTES # (AUTO) 2.7 X10'3 (0-0.9); MONOCYTES % (AUTO) 13.5 % (2-12); NEUTROPHILS # (AUTO) 14.8 X10'3 (1.8-7.7); NEUTROPHILS % (AUTO) 73.9 % (42-75); PLATELET COUNT 100 X10'3 (140-440); RED BLOOD COUNT 3.47 X10'6 (4.20-5.60); RED CELL DISTRIBUTION WIDTH 17.1 % (11.5-14.5)
[2022-06-15] MEDS: normal saline 1000ml 1,000 ML IV SCH (19:27)
[2022-06-15 19:29] LABS: APTT 37 SECONDS (22-32)
[2022-06-15 19:32] LABS: ALANINE AMINOTRANSFERASE 19 U/L (12-78); ALBUMIN 1.5 G/DL (3.4-5.0); ALKALINE PHOSPHATASE 61 IU/L (46-116); ANION GAP 5 (8-16); ASPARTATE AMINO TRANSFERASE 41 U/L (10-37); BILIRUBIN,TOTAL 8.7 MG/DL (0.1-1.0); BLOOD UREA NITROGEN 43 MG/DL (7-18); BUN/CREATININE RATIO 38.4 (6.6-38.0); CALCIUM 7.8 MG/DL (8.5-10.1); CHLORIDE 115 MMOL/L (99-107); CREATININE 1.12 MG/DL (0.40-0.90); GLUCOSE 125 MG/DL (70-104); MAGNESIUM 1.8 MG/DL (1.5-2.4); SODIUM 144 MMOL/L (135-145); TOTAL CARBON DIOXIDE 23.6 MMOL/L (24-32); eGFR 51 ML/MIN
[2022-06-15 19:35] LABS: ALBUMIN/GLOBULIN RATIO 0.5 (1.1-1.5); POTASSIUM 3.6 MMOL/L (3.5-5.1); TOTAL PROTEIN 4.3 G/DL (6.4-8.2)
[2022-06-15 20:12] LABS: ANISOCYTOSIS 1+; PLATELET ESTIMATE DECREASED; TOTAL CELLS COUNTED 100
[2022-06-15 20:13] LABS: POLYCHROMASIA 1+
[2022-06-15 20:14] LABS: POIKILOCYTOSIS 1+; SMUDGE CELLS 1+
--- NOTE | 2022-06-15 21:07 | NUR ---
Donor network at bedside to assess patient.
[2022-06-16] VITALS (34 sets, daily range): BP systolic 114–152; BP diastolic 59–76
[2022-06-16] MEDS: piperacillin/tazo 3.375gm/50ml 50 ML IV SCH ×2 (00:27→08:21)
[2022-06-16 03:11] LABS: BASOPHILS # (AUTO) 0.1 X10'3 (0-0.2); BASOPHILS % (AUTO) 0.3 % (0-1); EOSINOPHILS # (AUTO) 0.5 X10'3 (0-0.9); EOSINOPHILS % (AUTO) 2.5 % (0-6); HEMATOCRIT 30.9 % (35.0-45.0); HEMOGLOBIN 10.1 g/dl (12.0-16.0); LYMPHOCYTES # (AUTO) 2.5 X10'3 (1.1-4.8); LYMPHOCYTES % (AUTO) 11.9 % (21-51); MEAN CORPUSCULAR HEMOGLOBIN 30.5 PG (27.0-31.0); MEAN CORPUSCULAR HGB CONC 32.8 g/dL (33.0-36.5); MEAN CORPUSCULAR VOLUME 92.9 FL (78-98); MEAN PLATELET VOLUME 8.7 FL (7.4-10.4); MONOCYTES # (AUTO) 2.6 X10'3 (0-0.9); MONOCYTES % (AUTO) 12.4 % (2-12); NEUTROPHILS % (AUTO) 72.9 % (42-75); PLATELET COUNT 90 X10'3 (140-440); RED BLOOD COUNT 3.33 X10'6 (4.20-5.60); RED CELL DISTRIBUTION WIDTH 17.2 % (11.5-14.5); WHITE BLOOD COUNT 20.6 X10'3 (4.5-11.0)
[2022-06-16 03:14] LABS: CLARITY,URINE SLIGHTLY CLOUDY (Clear); GLUCOSE, URINE NEGATIVE (Neg); KETONES,URINE TRACE mg/dl (Neg); LEUKOCYTE ESTERASE ,URINE TRACE (Neg); OCCULT BLOOD,URINE LARGE (Neg); PROTEIN,URINE TRACE mg/dl (Neg)
[2022-06-16 03:25] LABS: APTT 39 SECONDS (22-32)
[2022-06-16 03:27] LABS: ALANINE AMINOTRANSFERASE 20 U/L (12-78); ALBUMIN 1.5 G/DL (3.4-5.0); ALKALINE PHOSPHATASE 66 IU/L (46-116); AMYLASE 29 U/L (25-115); ANION GAP 5 (8-16); ASPARTATE AMINO TRANSFERASE 53 U/L (10-37); BILIRUBIN,TOTAL 9.1 MG/DL (0.1-1.0); BLOOD UREA NITROGEN 42 MG/DL (7-18); BUN/CREATININE RATIO 33.9 (6.6-38.0); CALCIUM 7.6 MG/DL (8.5-10.1); CHLORIDE 117 MMOL/L (99-107); CREATININE 1.24 MG/DL (0.40-0.90); GLUCOSE 107 MG/DL (70-104); LIPASE 309 U/L (73-393); MAGNESIUM 1.9 MG/DL (1.5-2.4); PREALBUMIN 8.1 MG/DL (19-36); SODIUM 146 MMOL/L (135-145); TOTAL CARBON DIOXIDE 24.2 MMOL/L (24-32); eGFR 45 ML/MIN
[2022-06-16 03:28] LABS: ALBUMIN/GLOBULIN RATIO 0.5 (1.1-1.5); PHOSPHORUS 3.1 MG/DL (2.3-4.5); POTASSIUM 3.6 MMOL/L (3.5-5.1); TOTAL PROTEIN 4.3 G/DL (6.4-8.2)
[2022-06-16 03:31] LABS: COLOR,URINE DARK YELLOW (Yellow); NITRITES, URINE NEGATIVE (Neg); UA COLLECTION TYPE FOLEY CATH
[2022-06-16 03:33] LABS: BACTERIA,URINE 1+ /HPF (Neg); MUCUS STRANDS FEW /LPF (Neg); RBC,URINE 20-50 /HPF (0-2); SQUAMOUS EPITHELIAL CELL,UR FEW /LPF (FEW)
[2022-06-16 03:34] LABS: TRANSITIONAL EPI CELLS,URINE FEW /HPF; YEAST MANY /HPF (NEGATIVE)
[2022-06-16 03:51] LABS: ABG BASE EXCESS -3.6 mmol/L (-2.0-2.0); ABG HCO3 19.4 mmol/L (22.0-26.0); ABG OXYGEN SATURATION 95.1 % (94-97); ABG PCO2 (T) 27.8 mmHg (32.0-45.0); ABG PO2 (T) 72.1 mmHg (75.0-100.0); ALLEN'S TEST Modified; FCOHb 0.2 % (0.0-3.9); FMetHb 0.3 % (0.0-1.5); FO2Hb 94.6 % (94-97); PATIENT TEMPERATURE 36.3; PEEP 8 cm H2O; RESPIRATORY RATE 12 b/min; TIDAL VOLUME 450 mL; TOTAL HEMOGLOBIN 11.1 G/dl (12.0-16.0)
[2022-06-16] MEDS: lactulose 20gm/30ml cup CORPAK SCH ×6 (04:00→20:00)
[2022-06-16 04:27] LABS: ABG BASE EXCESS -3.7 mmol/L (-2.0-2.0); ABG HCO3 18.7 mmol/L (22.0-26.0); ABG OXYGEN SATURATION 99.2 % (94-97); ABG PO2 (T) 329.7 mmHg (75.0-100.0); ALLEN'S TEST Modified; FCOHb 0.3 % (0.0-3.9); FMetHb 0.4 % (0.0-1.5); FO2Hb 98.5 % (94-97); PATIENT TEMPERATURE 36.3; PEEP 8 cm H2O; RESPIRATORY RATE 12 b/min; TIDAL VOLUME 450 mL; TOTAL HEMOGLOBIN 10.6 G/dl (12.0-16.0)
[2022-06-16] MEDS: normal saline 1000ml 1,000 ML IV SCH ×4 (05:36→23:14)
--- NOTE | 2022-06-16 06:07 | NUR ---
Problems reprioritized. Patient report given, questions answered & plan of care reviewed with Carlos SANCHEZ.
--- NOTE | 2022-06-16 06:30 | NUR ---
Patient in room CICU 2009. I have received report from DANIEL Turner and had the opportunity to ask questions and assume patient care.
[2022-06-16] MEDS: K and/or MAG REPLACEMENT MC SCH ×2 (08:00→20:00)
--- NOTE | 2022-06-16 08:00 | NUR ---
Pt placed on CPAP/ PS ventilatory mode.
[2022-06-16 08:53] LABS: BASOPHILS % (AUTO) 0.2 % (0-1); EOSINOPHILS # (AUTO) 0.6 X10'3 (0-0.9); EOSINOPHILS % (AUTO) 3.4 % (0-6); HEMATOCRIT 29.9 % (35.0-45.0); HEMOGLOBIN 9.7 g/dl (12.0-16.0); LYMPHOCYTES # (AUTO) 2.2 X10'3 (1.1-4.8); LYMPHOCYTES % (AUTO) 11.9 % (21-51); MEAN CORPUSCULAR HGB CONC 32.5 g/dL (33.0-36.5); MEAN CORPUSCULAR VOLUME 92.2 FL (78-98); MEAN PLATELET VOLUME 8.9 FL (7.4-10.4); MONOCYTES # (AUTO) 2.2 X10'3 (0-0.9); MONOCYTES % (AUTO) 11.7 % (2-12); NEUTROPHILS # (AUTO) 13.4 X10'3 (1.8-7.7); NEUTROPHILS % (AUTO) 72.8 % (42-75); PLATELET COUNT 89 X10'3 (140-440); RED BLOOD COUNT 3.25 X10'6 (4.20-5.60); RED CELL DISTRIBUTION WIDTH 17.1 % (11.5-14.5); WHITE BLOOD COUNT 18.4 X10'3 (4.5-11.0)
--- NOTE | 2022-06-16 09:04 | NUR ---
Dr Mora rounded on pt. Pt made eye contact with him in response to verbal stimuli and nodded head "yes" that she could hear his voice. Dr Mora ordered medications and tube feeding resumed.
[2022-06-16] MEDS: MULTIVIT-MIN/FERROUS GLUCONATE 9 MG/15 ML LIQUID CORPAK SCH (09:12)
[2022-06-16] MEDS: thiamine 100mg tablet CORPAK SCH (09:12)
[2022-06-16] MEDS: folic acid 1mg tablet CORPAK SCH (09:12)
[2022-06-16] MEDS: pantoprazole 40MG/NS 100ML BAG 100 ML IV SCH (09:13)
[2022-06-16 09:51] LABS: ALBUMIN 1.4 G/DL (3.4-5.0); ANION GAP 8 (8-16); BLOOD UREA NITROGEN 40 MG/DL (7-18); BUN/CREATININE RATIO 36.7 (6.6-38.0); CALCIUM 7.8 MG/DL (8.5-10.1); CHLORIDE 117 MMOL/L (99-107); CREATININE 1.09 MG/DL (0.40-0.90); GLUCOSE 106 MG/DL (70-104); MAGNESIUM 1.7 MG/DL (1.5-2.4); SODIUM 147 MMOL/L (135-145); TOTAL CARBON DIOXIDE 22.5 MMOL/L (24-32); eGFR 53 ML/MIN
[2022-06-16 10:17] LABS: PHOSPHORUS 2.8 MG/DL (2.3-4.5); POTASSIUM 3.5 MMOL/L (3.5-5.1)
--- NOTE | 2022-06-16 11:52 | NUR ---
Pt becoming tachypneic with irregular RR of 32 -35, had brief burst of SVT. Ventilatory mode changed back to AC/ PRVC.
--- NOTE | 2022-06-16 18:14 | NUR ---
Patient in room CICU 2009. I have received report from Carlos SANCHEZ and had the opportunity to ask questions and assume patient care.
--- NOTE | 2022-06-16 18:18 | NUR ---
Patient in room CICU 2009. I have received report from Carlos SANCHEZ and had the opportunity to ask questions and assume patient care.
--- NOTE | 2022-06-16 18:28 | NUR ---
Problems reprioritized. Patient report given, questions answered & plan of care reviewed with DANIEL Turner.
[2022-06-17] VITALS (29 sets, daily range): BP systolic 116–151; BP diastolic 22–81
[2022-06-17] MEDS: lactulose 20gm/30ml cup CORPAK SCH ×6 (00:24→20:16)
[2022-06-17 02:32] LABS: BASOPHILS % (AUTO) 0.2 % (0-1); EOSINOPHILS # (AUTO) 0.2 X10'3 (0-0.9); EOSINOPHILS % (AUTO) 1.6 % (0-6); HEMATOCRIT 29.5 % (35.0-45.0); HEMOGLOBIN 9.5 g/dl (12.0-16.0); LYMPHOCYTES # (AUTO) 1.6 X10'3 (1.1-4.8); LYMPHOCYTES % (AUTO) 11.3 % (21-51); MEAN CORPUSCULAR HEMOGLOBIN 30.5 PG (27.0-31.0); MEAN CORPUSCULAR HGB CONC 32.3 g/dL (33.0-36.5); MEAN CORPUSCULAR VOLUME 94.6 FL (78-98); MEAN PLATELET VOLUME 8.7 FL (7.4-10.4); MONOCYTES # (AUTO) 1.9 X10'3 (0-0.9); NEUTROPHILS # (AUTO) 10.1 X10'3 (1.8-7.7); NEUTROPHILS % (AUTO) 72.9 % (42-75); PLATELET COUNT 73 X10'3 (140-440); RED BLOOD COUNT 3.12 X10'6 (4.20-5.60); WHITE BLOOD COUNT 13.9 X10'3 (4.5-11.0)
[2022-06-17 02:39] LABS: ALBUMIN 1.2 G/DL (3.4-5.0); ANION GAP 6 (8-16); BLOOD UREA NITROGEN 43 MG/DL (7-18); BUN/CREATININE RATIO 37.1 (6.6-38.0); CALCIUM 7.6 MG/DL (8.5-10.1); CHLORIDE 120 MMOL/L (99-107); CREATININE 1.16 MG/DL (0.40-0.90); GLUCOSE 145 MG/DL (70-104); MAGNESIUM 1.9 MG/DL (1.5-2.4); POTASSIUM 3.1 MMOL/L (3.5-5.1); SODIUM 149 MMOL/L (135-145); TOTAL CARBON DIOXIDE 22.9 MMOL/L (24-32); eGFR 49 ML/MIN
[2022-06-17 02:47] LABS: PHOSPHORUS 2.4 MG/DL (2.3-4.5)
[2022-06-17 03:32] LABS: ABG BASE EXCESS -3.4 mmol/L (-2.0-2.0); ABG OXYGEN SATURATION 95.2 % (94-97); ABG PCO2 (T) 29.3 mmHg (32.0-45.0); ALLEN'S TEST POSITIVE; FCOHb 0.3 % (0.0-3.9); FMetHb 0.3 % (0.0-1.5); FO2Hb 94.6 % (94-97); PATIENT TEMPERATURE 36.3; PEEP 8 cm H2O; RESPIRATORY RATE 12 b/min; TIDAL VOLUME 450 mL; TOTAL HEMOGLOBIN 10.3 G/dl (12.0-16.0)
--- NOTE | 2022-06-17 06:06 | NUR ---
Problems reprioritized. Patient report given, questions answered & plan of care reviewed with Carlos SANCHEZ.
[2022-06-17] MEDS: thiamine 100mg tablet CORPAK SCH (07:44)
[2022-06-17] MEDS: folic acid 1mg tablet CORPAK SCH (07:44)
[2022-06-17] MEDS: pantoprazole 40MG/NS 100ML BAG 100 ML IV SCH (07:44)
[2022-06-17] MEDS: MULTIVIT-MIN/FERROUS GLUCONATE 9 MG/15 ML LIQUID CORPAK SCH (07:48)
[2022-06-17] MEDS ORDERED: magnesium 4gm in 100ml NS 100 ML IV PRN (10:25)
[2022-06-17] MEDS ORDERED: POTASSIUM BICARB 20meq eff tab 20 MEQ TABLET.EFF PO PRN ×2 (10:25)
[2022-06-17] MEDS ORDERED: magnesium 2GM in 50ml NS 50 ML IV PRN (10:25)
[2022-06-17] MEDS: potassium Cl 20mEq/100mL bag 100 ML IV PRN ×4 (10:51→20:16)
--- NOTE | 2022-06-17 11:24 | NUR ---
Dr Mora spoke with pt and asked her if she wanted to live and pt nodded "yes." Pt asked if she wanted to be reintubated and placed back on the ventilator if she failed extubation. Pt nodded "yes."
--- NOTE | 2022-06-17 11:40 | NUR ---
Pt extubated placed on 4 L/min O2 via nasal cannula. Able to clear secretions with cough. Voice quality clear. Pt requesting ice chips.
--- NOTE | 2022-06-17 12:32 | NUR ---
BLE dressing changes completed by wound nurse.
[2022-06-17] MEDS: potassium CL 20mEq in D5-1/2NS 1,000 ML IV SCH ×2 (16:09→17:40)
--- NOTE | 2022-06-17 18:18 | NUR ---
Problems reprioritized. Patient report given, questions answered & plan of care reviewed with DANIEL Rosas.
[2022-06-18] VITALS (18 sets, daily range): BP systolic 120–174; BP diastolic 60–89
[2022-06-18] MEDS: lactulose 20gm/30ml cup CORPAK SCH ×7 (00:40→23:27)
[2022-06-18 00:54] LABS: CLARITY,URINE SLIGHTLY CLOUDY (Clear); GLUCOSE, URINE 100 mg/dl (Neg); KETONES,URINE TRACE mg/dl (Neg); LEUKOCYTE ESTERASE ,URINE NEGATIVE (Neg); NITRITES, URINE NEGATIVE (Neg); OCCULT BLOOD,URINE MODERATE (Neg); PROTEIN,URINE NEGATIVE (Neg)
[2022-06-18 00:58] LABS: BASOPHILS # (AUTO) 0.1 X10'3 (0-0.2); BASOPHILS % (AUTO) 0.5 % (0-1); EOSINOPHILS # (AUTO) 0.3 X10'3 (0-0.9); EOSINOPHILS % (AUTO) 2.4 % (0-6); HEMATOCRIT 29.7 % (35.0-45.0); HEMOGLOBIN 9.6 g/dl (12.0-16.0); LYMPHOCYTES # (AUTO) 1.5 X10'3 (1.1-4.8); LYMPHOCYTES % (AUTO) 12.3 % (21-51); MEAN CORPUSCULAR HEMOGLOBIN 30.5 PG (27.0-31.0); MEAN CORPUSCULAR HGB CONC 32.2 g/dL (33.0-36.5); MEAN CORPUSCULAR VOLUME 94.7 FL (78-98); MONOCYTES # (AUTO) 1.7 X10'3 (0-0.9); MONOCYTES % (AUTO) 14.1 % (2-12); NEUTROPHILS # (AUTO) 8.6 X10'3 (1.8-7.7); NEUTROPHILS % (AUTO) 70.7 % (42-75); PLATELET COUNT 67 X10'3 (140-440); RED BLOOD COUNT 3.14 X10'6 (4.20-5.60); RED CELL DISTRIBUTION WIDTH 17.5 % (11.5-14.5); UA COLLECTION TYPE NON-SPECIFIED; WHITE BLOOD COUNT 12.1 X10'3 (4.5-11.0)
[2022-06-18 01:03] LABS: BACTERIA,URINE FEW /HPF (Neg); RBC,URINE 20-50 /HPF (0-2)
[2022-06-18 01:04] LABS: SQUAMOUS EPITHELIAL CELL,UR FEW /LPF (FEW); YEAST MANY /HPF (NEGATIVE)
[2022-06-18 01:05] LABS: COLOR,URINE AMBER (Yellow)
[2022-06-18 01:07] LABS: ALBUMIN 1.3 G/DL (3.4-5.0); ANION GAP 4 (8-16); BLOOD UREA NITROGEN 37 MG/DL (7-18); BUN/CREATININE RATIO 42.5 (6.6-38.0); CALCIUM 8.1 MG/DL (8.5-10.1); CHLORIDE 123 MMOL/L (99-107); CREATININE 0.87 MG/DL (0.40-0.90); GLUCOSE 138 MG/DL (70-104); MAGNESIUM 1.9 MG/DL (1.5-2.4); POTASSIUM 3.5 MMOL/L (3.5-5.1); SODIUM 151 MMOL/L (135-145); TOTAL CARBON DIOXIDE 23.7 MMOL/L (24-32); eGFR 68 ML/MIN
[2022-06-18 01:12] LABS: PHOSPHORUS 2.1 MG/DL (2.3-4.5)
[2022-06-18] MEDS: potassium CL 20mEq in D5-1/2NS 1,000 ML IV SCH (05:57)
[2022-06-18] MEDS: K and/or MAG REPLACEMENT MC SCH (06:48)
[2022-06-18] MEDS: MULTIVIT-MIN/FERROUS GLUCONATE 9 MG/15 ML LIQUID CORPAK SCH (07:35)
[2022-06-18] MEDS: folic acid 1mg tablet CORPAK SCH (07:35)
[2022-06-18] MEDS: thiamine 100mg tablet CORPAK SCH (07:35)
[2022-06-18] MEDS: pantoprazole 40MG/NS 100ML BAG 100 ML IV SCH (07:36)
[2022-06-18] MEDS ORDERED: sodium phosphate inj. 15 MMOL in dextrose 5%-water 250 ML IV PRN (08:20)
[2022-06-18] MEDS ORDERED: Neutra Phos packet CORPAK PRN (08:20)
[2022-06-18] MEDS ORDERED: sodium phosphate inj. 30 MMOL in dextrose 5%-water 250 ML IV PRN (08:20)
[2022-06-18] MEDS ORDERED: POTASSIUM BICARB 20meq eff tab 20 MEQ TABLET.EFF CORPAK PRN ×2 (08:23)
[2022-06-18] MEDS ORDERED: sodium phosphate inj. 15 MMOL in dextrose 5%-water 250 ML IV ONE (08:45)
[2022-06-18 08:51] LABS: ALANINE AMINOTRANSFERASE 68 U/L (12-78); ALKALINE PHOSPHATASE 86 IU/L (46-116); ASPARTATE AMINO TRANSFERASE 147 U/L (10-37); BILIRUBIN,TOTAL 9.9 MG/DL (0.1-1.0)
[2022-06-18 08:52] LABS: ALBUMIN/GLOBULIN RATIO 0.4 (1.1-1.5); TOTAL PROTEIN 4.6 G/DL (6.4-8.2)
[2022-06-18] MEDS: HYDROmorphone inj. 0.5 MG/0.5 ML DISP.SYRIN IV PRN (10:19)
[2022-06-18] MEDS: ondansetron/PF 4mg/2ml inj IV PRN (10:19)
--- NOTE | 2022-06-18 11:11 | NUR ---
Reassessment: Pt extubated 06/17 and continues with TF via NGT and tolerating. Pt s/p BSS this morning with ST recs pureed food with thin liquids, pending first meal since PO diet advancement. Per verbal d/w RN pt tolerated applesauce however at CCR RN reported pt spit up the applesauce and water that pt previously received. PRN Zofran administered today. Physician agrees to continue TF via NGT and enforced need for elevated HOB. TF recommendations have been updated given extubation and d/w manager diesel who updated order in EMR. Serum Na continues to elevate, up to 151 MMOL/L today, physician requests to begin water flushes. D/w manager diesel recommendation for 150 mL water flush Q4H. Per EMR pt A/O x 2, poor PO intake is anticipated. Recommend continuing with NGTF until pt consistently able to tolerate adequate PO intake. Pt receiving electrolyte replacement PRN. LBM 06/17, with diarrhea which is likely r/t routine Lactulose. Will continue to follow closely and make recommendations as appropriate. Recommendations: 1. Continue pureed diet with thin liquids per ST recs; consider adding sodium restriction to assist with preventing fluid retention in view of ESLD 2. Continuous TF via NGT using Jevity 1.2 with 50 mL/hr goal to provide 1200 mL volume/day, 1440 kcal, 67 g protein, and 968 mL water 3. Additional 150 mL water flush Q4H in view of upward trending serum Na; monitor serum Na 4. PALB q Wednesday/ 5. Daily scaled wts 6. Routine Lactulose per MD 7. CONTINUE NGTF UNTIL PT CONSISTENTLY WITH ADEQUATE PO INTAKE Addendum: 06/18/22 at [address] Amended: Links added.
--- NOTE | 2022-06-18 12:53 | NUR ---
Patient in room CICU 2009. I have received report and had the opportunity to ask questions and assume patient care.
--- NOTE | 2022-06-18 14:28 | NUR ---
[facility]. Pt alert and oriented. Arrives with corepak and medeiros. Pt c/o stomach pain. Oriented pt to room and call light.
[2022-06-18] MEDS ORDERED: metoclopramide 5 mg/ml inj IV PRN (19:45)
--- NOTE | 2022-06-18 19:50 | NUR ---
dr. dyer called to ask why labs weren't drawn - informed that multiple lab techs have attempted lab draw without success. no access port - CVL was discontinued in ICU. acknowledged. informed Dr. Dyer that pt starting to have some emesis and latest KUB showed copack in stomach. orders received to stop tube feeding until corpack shows proper placement in duadenum. reglan q6 and KUB q12. will move patient to closer room for closer observation. pt unable to use call light due to weakness. will attempt to find easy-push call light.
[2022-06-18] MEDS: Potassium Cl inj 20 MEQ in dextrose 5%-water 990 ML IV SCH ×3 (20:46→21:32)
[2022-06-18] MEDS ORDERED: POTASSIUM Cl 20eq-D5W 1000mL 1,000 ML IV SCH (22:15)
--- NOTE | 2022-06-18 23:27 | NUR ---
noted progress note from dr. oliver and ICU MD that pt to have 2-4 BM's daily. held lactulose as pt has had 4 BM's since 1400.
[2022-06-19 00:04] VITALS: BP 115/75
[2022-06-19 01:48] VITALS: BP 125/69
[2022-06-19] MEDS: lactulose 20gm/30ml cup CORPAK SCH ×6 (02:07→23:41)
[2022-06-19] MEDS: metoclopramide 5 mg/ml inj IV SCH ×4 (02:28→20:21)
--- NOTE | 2022-06-19 03:00 | NUR ---
LUKE obtained. called charge in ICU Libertad - she read the xray as positive placement of corpack but she cannot sign it off by herself - needs second RN - not available at this time. will have to wait until xray is read before starting tube feeding again. pt not in distress at this time.
[2022-06-19 05:49] LABS: HEMOGLOBIN 10.2 g/dl (12.0-16.0); RED BLOOD COUNT 3.36 X10'6 (4.20-5.60)
[2022-06-19 05:53] LABS: BASOPHILS # (AUTO) 0.1 X10'3 (0-0.2); BASOPHILS % (AUTO) 0.4 % (0-1); EOSINOPHILS # (AUTO) 0.2 X10'3 (0-0.9); EOSINOPHILS % (AUTO) 1.6 % (0-6); HEMATOCRIT 32.4 % (35.0-45.0); LYMPHOCYTES # (AUTO) 1.5 X10'3 (1.1-4.8); LYMPHOCYTES % (AUTO) 10.8 % (21-51); MEAN CORPUSCULAR HEMOGLOBIN 30.4 PG (27.0-31.0); MEAN CORPUSCULAR HGB CONC 31.6 g/dL (33.0-36.5); MEAN CORPUSCULAR VOLUME 96.3 FL (78-98); MEAN PLATELET VOLUME 8.6 FL (7.4-10.4); MONOCYTES # (AUTO) 1.8 X10'3 (0-0.9); NEUTROPHILS # (AUTO) 10.3 X10'3 (1.8-7.7); NEUTROPHILS % (AUTO) 74.2 % (42-75); PLATELET COUNT 72 X10'3 (140-440); RED CELL DISTRIBUTION WIDTH 19.6 % (11.5-14.5); WHITE BLOOD COUNT 13.9 X10'3 (4.5-11.0)
[2022-06-19 06:00] VITALS: BP 114/75
[2022-06-19 06:00] LABS: ALANINE AMINOTRANSFERASE 96 U/L (12-78); ALBUMIN 1.3 G/DL (3.4-5.0); ALKALINE PHOSPHATASE 153 IU/L (46-116); ANION GAP 6 (8-16); ASPARTATE AMINO TRANSFERASE 181 U/L (10-37); BILIRUBIN,TOTAL 11.3 MG/DL (0.1-1.0); BLOOD UREA NITROGEN 31 MG/DL (7-18); BUN/CREATININE RATIO 32.6 (6.6-38.0); CALCIUM 7.9 MG/DL (8.5-10.1); CHLORIDE 119 MMOL/L (99-107); CREATININE 0.95 MG/DL (0.40-0.90); MAGNESIUM 1.8 MG/DL (1.5-2.4); POTASSIUM 3.9 MMOL/L (3.5-5.1); SODIUM 148 MMOL/L (135-145); TOTAL CARBON DIOXIDE 23.2 MMOL/L (24-32); eGFR 62 ML/MIN
[2022-06-19 06:04] LABS: ALBUMIN/GLOBULIN RATIO 0.3 (1.1-1.5); GLUCOSE 110 MG/DL (70-104); PHOSPHORUS 3.1 MG/DL (2.3-4.5); TOTAL PROTEIN 5.1 G/DL (6.4-8.2)
--- NOTE | 2022-06-19 06:36 | NUR ---
reported to days. noted pt still has tube feeding off. waiting for kub results. reposition q2 hours. no BM x6 hours.
--- NOTE | 2022-06-19 06:40 | NUR ---
Patient in room ORTHO 4018. I have received report from Mary and had the opportunity to ask questions and assume patient care.
[2022-06-19] MEDS: K and/or MAG REPLACEMENT MC SCH (06:46)
--- NOTE | 2022-06-19 07:04 | NUR ---
PAGER ID: [phone] MESSAGE: Sneha Rowan in [phone] - blood culture gram + cocci and clusters -Nelly [phone]
[2022-06-19] MEDS: pantoprazole 40MG/NS 100ML BAG 100 ML IV SCH (07:29)
[2022-06-19] MEDS ORDERED: POTASSIUM Cl 20eq-D5W 1000mL 1,000 ML IV SCH (07:30)
[2022-06-19] MEDS ORDERED: Potassium Cl inj 20 MEQ in dextrose 5%-water 990 ML IV SCH (07:40)
[2022-06-19] MEDS: piperacillin/tazo 4.5gm/100ml 100 ML IV SCH ×3 (08:08→23:41)
[2022-06-19 08:17] LABS: ANISOCYTOSIS 2+; BURR CELLS 1+; PLATELET ESTIMATE DECREASED
[2022-06-19 08:18] LABS: POLYCHROMASIA FEW; SCHISTOCYTES FEW
[2022-06-19] MEDS: folic acid 1mg tablet CORPAK SCH (09:26)
[2022-06-19] MEDS: thiamine 100mg tablet CORPAK SCH (09:26)
[2022-06-19 09:50] VITALS: BP 114/74
[2022-06-19 12:10] LABS: ALBUMIN 1.3 G/DL (3.4-5.0); ANION GAP 6 (8-16); BLOOD UREA NITROGEN 30 MG/DL (7-18); BUN/CREATININE RATIO 35.7 (6.6-38.0); CALCIUM 7.8 MG/DL (8.5-10.1); CHLORIDE 117 MMOL/L (99-107); CREATININE 0.84 MG/DL (0.40-0.90); MAGNESIUM 1.9 MG/DL (1.5-2.4); SODIUM 145 MMOL/L (135-145); TOTAL CARBON DIOXIDE 21.7 MMOL/L (24-32); eGFR 71 ML/MIN
[2022-06-19 12:17] LABS: GLUCOSE 141 MG/DL (70-104); PHOSPHORUS 2.8 MG/DL (2.3-4.5); POTASSIUM 4.3 MMOL/L (3.5-5.1)
[2022-06-19] MEDS: MULTIVIT-MIN/FERROUS GLUCONATE 9 MG/15 ML LIQUID CORPAK SCH (14:15)
--- NOTE | 2022-06-19 16:59 | NUR ---
PAGER ID: [phone] MESSAGE: Sneha Rowan in 4017 - Can we feed pt since she is not having the MRCP? -Nelly [phone]
--- NOTE | 2022-06-19 18:30 | NUR ---
Patient in room ORTHO 4018. I have received report from DANIEL Villegas and had the opportunity to ask questions and assume patient care.
--- NOTE | 2022-06-19 18:40 | NUR ---
Patient in room ORTH[facility] 4018. I have received report from Meagan and had the opportunity to ask questions and assume patient care. Addendum: 06/19/22 at 1843 by Nelly Flores RN Problems reprioritized. Patient report given, questions answered & plan of care reviewed with Meagan.
--- NOTE | 2022-06-19 18:49 | NUR ---
Patient in room ORTHO 4018. I have received report from DANIEL Villegas and had the opportunity to ask questions and assume patient care.
[2022-06-19] MEDS ORDERED: furosemide 20 MG/2 ML vial IV ONE (19:43)
[2022-06-19 22:00] VITALS: BP 135/77
[2022-06-20] MEDS: metoclopramide 5 mg/ml inj IV SCH ×4 (02:08→19:41)
[2022-06-20] MEDS: lactulose 20gm/30ml cup CORPAK SCH ×6 (03:40→23:17)
[2022-06-20 06:00] VITALS: BP 116/65
[2022-06-20 06:38] LABS: ALANINE AMINOTRANSFERASE 131 U/L (12-78); ALBUMIN 1.3 G/DL (3.4-5.0); ALKALINE PHOSPHATASE 281 IU/L (46-116); ANION GAP 5 (8-16); ASPARTATE AMINO TRANSFERASE 215 U/L (10-37); BILIRUBIN,TOTAL 12.4 MG/DL (0.1-1.0); BLOOD UREA NITROGEN 29 MG/DL (7-18); CALCIUM 7.7 MG/DL (8.5-10.1); CHLORIDE 117 MMOL/L (99-107); CREATININE 0.88 MG/DL (0.40-0.90); MAGNESIUM 1.9 MG/DL (1.5-2.4); POTASSIUM 4.4 MMOL/L (3.5-5.1); SODIUM 145 MMOL/L (135-145); TOTAL CARBON DIOXIDE 22.9 MMOL/L (24-32); eGFR 67 ML/MIN
[2022-06-20 06:43] LABS: ALBUMIN/GLOBULIN RATIO 0.3 (1.1-1.5); GLUCOSE 128 MG/DL (70-104); PHOSPHORUS 3.2 MG/DL (2.3-4.5); TOTAL PROTEIN 5.3 G/DL (6.4-8.2)
--- NOTE | 2022-06-20 07:05 | NUR ---
Problems reprioritized. Patient report given, questions answered & plan of care reviewed with DANIEL Zelaya.
[2022-06-20 07:07] LABS: BASOPHILS % (AUTO) 0.1 % (0-1); EOSINOPHILS # (AUTO) 0.1 X10'3 (0-0.9); EOSINOPHILS % (AUTO) 0.5 % (0-6); HEMATOCRIT 35.2 % (35.0-45.0); LYMPHOCYTES # (AUTO) 1.4 X10'3 (1.1-4.8); MEAN CORPUSCULAR HEMOGLOBIN 29.8 PG (27.0-31.0); MEAN CORPUSCULAR HGB CONC 31.1 g/dL (33.0-36.5); MEAN CORPUSCULAR VOLUME 95.9 FL (78-98); MEAN PLATELET VOLUME 9.6 FL (7.4-10.4); MONOCYTES # (AUTO) 2.1 X10'3 (0-0.9); MONOCYTES % (AUTO) 13.4 % (2-12); NEUTROPHILS # (AUTO) 12.2 X10'3 (1.8-7.7); PLATELET COUNT 97 X10'3 (140-440); RED BLOOD COUNT 3.67 X10'6 (4.20-5.60); RED CELL DISTRIBUTION WIDTH 21.2 % (11.5-14.5); WHITE BLOOD COUNT 15.8 X10'3 (4.5-11.0)
--- NOTE | 2022-06-20 07:10 | NUR ---
Patient in room ORTHO 4018. I have received report from Meagan and had the opportunity to ask questions and assume patient care.
[2022-06-20] MEDS: K and/or MAG REPLACEMENT MC SCH (08:00)
[2022-06-20] MEDS: MULTIVIT-MIN/FERROUS GLUCONATE 9 MG/15 ML LIQUID CORPAK SCH (08:59)
[2022-06-20] MEDS: folic acid 1mg tablet CORPAK SCH (08:59)
[2022-06-20] MEDS: thiamine 100mg tablet CORPAK SCH (08:59)
[2022-06-20] MEDS: pantoprazole 40MG/NS 100ML BAG 100 ML IV SCH (08:59)
[2022-06-20] MEDS: piperacillin/tazo 4.5gm/100ml 100 ML IV SCH (09:00)
[2022-06-20 10:00] VITALS: BP 126/67
[2022-06-20 10:12] LABS: MAGNESIUM 1.9 MG/DL (1.5-2.4)
[2022-06-20 10:13] LABS: PHOSPHORUS 3.1 MG/DL (2.3-4.5)
--- NOTE | 2022-06-20 15:39 | NUR ---
RE: Harpal in 4017, pt sounds wet/raspy. No RT. Please advise. Nathalie on ortho
[2022-06-20] MEDS ORDERED: albuterol 2.5 MG/3 ML nebule NEB PRN (15:40)
[2022-06-20] MEDS ORDERED: furosemide 40mg/4ml inj IV ONE (17:55)
[2022-06-20 18:00] VITALS: BP 135/78
--- NOTE | 2022-06-20 18:22 | NUR ---
Problems reprioritized. Patient report given, questions answered & plan of care reviewed with Meagan.
--- NOTE | 2022-06-20 19:21 | NUR ---
Patient in room ORTHO 4018. I have received report from DANIEL Zelaya and had the opportunity to ask questions and assume patient care.
[2022-06-20] MEDS: budesonide 0.5mg/2ml UD nebule IH SCH (20:18)
[2022-06-20] MEDS: ipratropium/albuterol 3ml nebule NEB SCH (20:19)
[2022-06-20 22:00] VITALS: BP 132/71
[2022-06-21] MEDS: metoclopramide 5 mg/ml inj IV SCH ×4 (03:17→20:05)
[2022-06-21] MEDS: lactulose 20gm/30ml cup CORPAK SCH ×6 (03:58→23:56)
[2022-06-21 06:00] VITALS: BP 125/71
--- NOTE | 2022-06-21 06:25 | NUR ---
received report from paulette sidhu
--- NOTE | 2022-06-21 06:42 | NUR ---
Problems reprioritized. Patient report given, questions answered & plan of care reviewed with Aren.
[2022-06-21 06:57] LABS: ALANINE AMINOTRANSFERASE 139 U/L (12-78); ALBUMIN 1.3 G/DL (3.4-5.0); ALKALINE PHOSPHATASE 309 IU/L (46-116); ANION GAP 6 (8-16); ASPARTATE AMINO TRANSFERASE 168 U/L (10-37); BILIRUBIN,TOTAL 12.2 MG/DL (0.1-1.0); BLOOD UREA NITROGEN 35 MG/DL (7-18); BUN/CREATININE RATIO 36.5 (6.6-38.0); CALCIUM 8.6 MG/DL (8.5-10.1); CHLORIDE 116 MMOL/L (99-107); CREATININE 0.96 MG/DL (0.40-0.90); POTASSIUM 4.2 MMOL/L (3.5-5.1); SODIUM 144 MMOL/L (135-145); TOTAL CARBON DIOXIDE 22.3 MMOL/L (24-32); eGFR 61 ML/MIN
[2022-06-21 06:59] LABS: ALBUMIN/GLOBULIN RATIO 0.3 (1.1-1.5); GLUCOSE 148 MG/DL (70-104); TOTAL PROTEIN 5.9 G/DL (6.4-8.2)
[2022-06-21 07:00] LABS: TRIGLYCERIDES 90 MG/DL (20-135)
[2022-06-21] MEDS ORDERED: PERFLUTREN PROTEIN-A MICROSPHR (Optison) 0.22 MG/ML 3ML VIAL IV ONE (07:35)
[2022-06-21] MEDS: MULTIVIT-MIN/FERROUS GLUCONATE 9 MG/15 ML LIQUID CORPAK SCH (08:00)
[2022-06-21] MEDS: pantoprazole 40MG/NS 100ML BAG 100 ML IV SCH (08:00)
[2022-06-21] MEDS: thiamine 100mg tablet CORPAK SCH (08:00)
[2022-06-21] MEDS: folic acid 1mg tablet CORPAK SCH (08:00)
[2022-06-21 08:18] LABS: BASOPHILS % (AUTO) 0.2 % (0-1); EOSINOPHILS % (AUTO) 0.1 % (0-6); HEMATOCRIT 35.5 % (35.0-45.0); HEMOGLOBIN 11.1 g/dl (12.0-16.0); LYMPHOCYTES # (AUTO) 1.4 X10'3 (1.1-4.8); MEAN CORPUSCULAR HEMOGLOBIN 30.2 PG (27.0-31.0); MEAN CORPUSCULAR HGB CONC 31.2 g/dL (33.0-36.5); MEAN CORPUSCULAR VOLUME 96.9 FL (78-98); MEAN PLATELET VOLUME 9.4 FL (7.4-10.4); MONOCYTES % (AUTO) 11.5 % (2-12); NEUTROPHILS # (AUTO) 14.1 X10'3 (1.8-7.7); NEUTROPHILS % (AUTO) 80.2 % (42-75); PLATELET COUNT 128 X10'3 (140-440); RED BLOOD COUNT 3.66 X10'6 (4.20-5.60); RED CELL DISTRIBUTION WIDTH 22.1 % (11.5-14.5); WHITE BLOOD COUNT 17.6 X10'3 (4.5-11.0)
[2022-06-21] MEDS: ipratropium/albuterol 3ml nebule NEB SCH ×3 (08:26→20:34)
[2022-06-21] MEDS: budesonide 0.5mg/2ml UD nebule IH SCH ×2 (08:26→20:33)
--- NOTE | 2022-06-21 09:51 | NUR ---
F/u 06/21: Pt remains on NG feeds at goal and tolerating PO ~25% avg now MM5/thin meals per SENIOR RECEPTIONIST recs. Noted now DX sepsis per DO note; meeting needs w/ supplemental EN and marginal PO intake. RD recommends Ensure Plus High Protein TIDWM since if pt can consistently consume 100% and maintain current meal intake will meet estimated needs; DO notified. Remains on routine thiamine, folic acid, MVI w/ iron for etoh hx. LBM 06/20 receiving routine lactulose. Will monitor for further nutrition intervention needs. Recommendations: 1. Continue MM5/thin liquids per ST recs; if PO improves advance to Na-restricted diet as medically indicated; encourage PO 2. Continuous TF via NGT using Jevity 1.2 with 50 mL/hr goal to provide 1200 mL volume/day, 1440 kcal, 67 g protein, and 968 mL water 3. Additional 150 mL water flush Q4H in view of upward trending serum Na; monitor serum Na 4. Ensure Plus High Protein TIDWM; pending physician verification in EMR 5. PALB q Wednesday/; Daily scaled wts 6. Routine Lactulose per MD 7. CONTINUE NGTF UNTIL PT CONSISTENTLY WITH ADEQUATE PO INTAKE Addendum: 06/21/22 at [address] Amended: Links added.
[2022-06-21 10:00] VITALS: BP 118/69
[2022-06-21] MEDS: LACTOSE-REDUCED FOOD 237ML LIQUID PO SCH ×2 (13:00→18:00)
[2022-06-21] MEDS ORDERED: iohexol 350MG/ML 100ml bottle IV ONE (13:05)
[2022-06-21 18:00] VITALS: BP 113/79
--- NOTE | 2022-06-21 18:22 | NUR ---
GAVE REPORT TO DANIEL GARCIA
[2022-06-21] MEDS: furosemide 20 MG/2 ML vial IV SCH (20:05)
[2022-06-21 22:00] VITALS: BP 117/87
[2022-06-22] MEDS: metoclopramide 5 mg/ml inj IV SCH ×4 (02:16→19:46)
[2022-06-22] MEDS: lactulose 20gm/30ml cup CORPAK SCH ×5 (04:35→19:46)
[2022-06-22 06:00] VITALS: BP 116/89
[2022-06-22 06:23] LABS: BASOPHILS % (AUTO) 0.1 % (0-1); EOSINOPHILS # (AUTO) 0.1 X10'3 (0-0.9); EOSINOPHILS % (AUTO) 0.6 % (0-6); HEMATOCRIT 33.5 % (35.0-45.0); HEMOGLOBIN 10.3 g/dl (12.0-16.0); LYMPHOCYTES # (AUTO) 1.2 X10'3 (1.1-4.8); LYMPHOCYTES % (AUTO) 7.1 % (21-51); MEAN CORPUSCULAR HEMOGLOBIN 29.5 PG (27.0-31.0); MEAN CORPUSCULAR HGB CONC 30.9 g/dL (33.0-36.5); MEAN CORPUSCULAR VOLUME 95.5 FL (78-98); MEAN PLATELET VOLUME 10.1 FL (7.4-10.4); MONOCYTES % (AUTO) 11.4 % (2-12); NEUTROPHILS % (AUTO) 80.8 % (42-75); PLATELET COUNT 134 X10'3 (140-440); RED CELL DISTRIBUTION WIDTH 22.8 % (11.5-14.5); WHITE BLOOD COUNT 17.3 X10'3 (4.5-11.0)
[2022-06-22 07:16] LABS: ALANINE AMINOTRANSFERASE 136 U/L (12-78); ALBUMIN 1.2 G/DL (3.4-5.0); ALKALINE PHOSPHATASE 287 IU/L (46-116); ANION GAP 10 (8-16); ASPARTATE AMINO TRANSFERASE 143 U/L (10-37); BILIRUBIN,TOTAL 11.2 MG/DL (0.1-1.0); BLOOD UREA NITROGEN 39 MG/DL (7-18); BUN/CREATININE RATIO 35.8 (6.6-38.0); CALCIUM 8.7 MG/DL (8.5-10.1); CHLORIDE 113 MMOL/L (99-107); CREATININE 1.09 MG/DL (0.40-0.90); POTASSIUM 4.4 MMOL/L (3.5-5.1); SODIUM 142 MMOL/L (135-145); TOTAL CARBON DIOXIDE 19.4 MMOL/L (24-32); eGFR 53 ML/MIN
[2022-06-22 07:22] LABS: ALBUMIN/GLOBULIN RATIO 0.3 (1.1-1.5); GLUCOSE 140 MG/DL (70-104); TOTAL PROTEIN 5.7 G/DL (6.4-8.2)
[2022-06-22] MEDS: LACTOSE-REDUCED FOOD 237ML LIQUID PO SCH ×3 (08:00→18:00)
[2022-06-22] MEDS: ipratropium/albuterol 3ml nebule NEB SCH ×3 (08:27→20:17)
[2022-06-22] MEDS: budesonide 0.5mg/2ml UD nebule IH SCH ×2 (08:27→20:17)
[2022-06-22] MEDS: thiamine 100mg tablet CORPAK SCH (08:47)
[2022-06-22] MEDS: MULTIVIT-MIN/FERROUS GLUCONATE 9 MG/15 ML LIQUID CORPAK SCH (08:48)
[2022-06-22] MEDS: pantoprazole 40MG/NS 100ML BAG 100 ML IV SCH (08:48)
[2022-06-22] MEDS: furosemide 20 MG/2 ML vial IV SCH ×2 (08:48→19:46)
[2022-06-22] MEDS: folic acid 1mg tablet CORPAK SCH (08:48)
[2022-06-22] MEDS ORDERED: LIDOcaine 1% 30ml preserv. free vial ONE (08:54)
[2022-06-22 10:00] VITALS: BP 114/83
[2022-06-22 11:01] VITALS: BP 144/80
[2022-06-23] MEDS: lactulose 20gm/30ml cup CORPAK SCH ×2 (00:20→04:24)
[2022-06-23] MEDS: metoclopramide 5 mg/ml inj IV SCH (02:26)
--- NOTE | 2022-06-23 05:21 | NUR ---
Notified MD Douglas that patient desating for RT and with possible aspiration. Patient was placed on non-rebreather, tube feed was placed on hold. placed new orders for stat chest x-ray, labs and antibiotics to start. Pt voicing she does not want the non-rebreather on at this time, continuing to re-educate about the need for her to have the oxygen mask on.
--- NOTE | 2022-06-23 05:41 | NUR ---
Marcos updated on patient change of condition. He states he will come in to see patient and discuss code status.
[2022-06-23] MEDS ORDERED: VANCOmycin 2,000MG in NS 500ml IV soln IV ONE (05:45)
[2022-06-23 06:00] VITALS: BP 102/48
[2022-06-23 06:34] LABS: BASOPHILS % (AUTO) 0.1 % (0-1); EOSINOPHILS # (AUTO) 0.2 X10'3 (0-0.9); EOSINOPHILS % (AUTO) 0.9 % (0-6); LYMPHOCYTES # (AUTO) 1.5 X10'3 (1.1-4.8); LYMPHOCYTES % (AUTO) 9.1 % (21-51); MEAN CORPUSCULAR HGB CONC 31.1 g/dL (33.0-36.5); MEAN CORPUSCULAR VOLUME 96.3 FL (78-98); MONOCYTES # (AUTO) 1.7 X10'3 (0-0.9); MONOCYTES % (AUTO) 10.3 % (2-12); NEUTROPHILS # (AUTO) 13.5 X10'3 (1.8-7.7); NEUTROPHILS % (AUTO) 79.6 % (42-75); PLATELET COUNT 154 X10'3 (140-440); RED BLOOD COUNT 3.33 X10'6 (4.20-5.60); RED CELL DISTRIBUTION WIDTH 22.5 % (11.5-14.5); WHITE BLOOD COUNT 16.9 X10'3 (4.5-11.0)
[2022-06-23 06:49] LABS: ALANINE AMINOTRANSFERASE 141 U/L (12-78); ALBUMIN 1.3 G/DL (3.4-5.0); ALKALINE PHOSPHATASE 289 IU/L (46-116); ANION GAP 6 (8-16); ASPARTATE AMINO TRANSFERASE 150 U/L (10-37); BILIRUBIN,TOTAL 10.6 MG/DL (0.1-1.0); BLOOD UREA NITROGEN 46 MG/DL (7-18); BUN/CREATININE RATIO 33.3 (6.6-38.0); CALCIUM 9.1 MG/DL (8.5-10.1); CHLORIDE 113 MMOL/L (99-107); CREATININE 1.38 MG/DL (0.40-0.90); POTASSIUM 5.4 MMOL/L (3.5-5.1); SODIUM 142 MMOL/L (135-145); TOTAL CARBON DIOXIDE 22.9 MMOL/L (24-32); eGFR 40 ML/MIN
[2022-06-23 06:50] LABS: ALBUMIN/GLOBULIN RATIO 0.3 (1.1-1.5); GLUCOSE 127 MG/DL (70-104)
[2022-06-23] MEDS ORDERED: furosemide 40mg/4ml inj IV ONE (07:25)
[2022-06-23] MEDS ORDERED: furosemide 40mg/4ml inj ONE (07:27)
[2022-06-23] MEDS ORDERED: LORazepam 2 mg/ml vial IV PRN (07:40)
[2022-06-23] MEDS ORDERED: morphine 10mg/0.5ml (conc. morphine) oral syringe PO PRN (07:40)
[2022-06-23] MEDS ORDERED: furosemide 40mg/4ml inj IV PRN (07:40)
[2022-06-23] MEDS ORDERED: hyoscyamine 0.125mg TAB.SUBL SL PRN (07:40)
[2022-06-23] MEDS ORDERED: morphine 4 MG/ML inj SYRINge IV PRN (07:40)
--- NOTE | 2022-06-23 07:58 | NUR ---
and sister at the bedside. Telemetry reports heart rate decreasing. Oral suctioning frequently.
[2022-06-23] MEDS ORDERED: furosemide 20 MG/2 ML vial IV SCH (08:00)
--- NOTE | 2022-06-23 08:01 | NUR ---
Call from telemetry. No heart rhythm.
--- NOTE | 2022-06-23 09:30 | NUR ---
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
[2022-06-23] MEDS ORDERED: piperacillin/tazo 3.375gm/50ml 50 ML IV SCH (14:00)
[2022-06-23] MEDS ORDERED: vancomycin/NS 1 GM ADD-VANTAGE 250 ML IV SCH (17:45)
--- NOTE | 2022-06-23 22:07 | NUR ---
+blood culture from anaerobic bottle drawn 61806/23/22 ,gram + in cocci in pairs and chains.pt 06/23/22 at 0801.Myesha nursing sup informed.
[2022-06-24] MEDS ORDERED: vancomycin/NS 1 GM ADD-VANTAGE 250 ML IV SCH (08:00)
[2022-06-26] MEDS ORDERED: VANCOMYCIN LEVEL IV ONE (07:30)
== END 2022-06-23 09:30 | DRG 720 ==
LOC: ER 10:41 → ED HOLD 14:55 → EDBEDREQ 21:51 → SUR 3N 22:20 → CICU 2S 06-13 12:50 → ORTHO 4S 06-18 13:39
PROVIDERS: ADMIT Family Medicine; ATTEND Family Medicine
PROC: 30233N1 Transfusion of Nonautologous Red Blood Cells into Peripheral Vein, Percutaneous Approach (ICD-10-PCS; 2022-06-10)
PROC: 30233K1 Transfusion of Nonautologous Frozen Plasma into Peripheral Vein, Percutaneous Approach (ICD-10-PCS; 2022-06-11)
PROC: 5A1945Z Respiratory Ventilation, 24-96 Consecutive Hours (ICD-10-PCS; 2022-06-13)
PROC: 30233M1 Transfusion of Nonautologous Plasma Cryoprecipitate into Peripheral Vein, Percutaneous Approach (ICD-10-PCS; 2022-06-13)
PROC: 0BH17EZ Insertion of Endotracheal Airway into Trachea, Via Natural or Artificial Opening (ICD-10-PCS; 2022-06-13)
PROC: 06L38CZ Occlusion of Esophageal Vein with Extraluminal Device, Via Natural or Artificial Opening Endoscopic (ICD-10-PCS; 2022-06-13)
PROC: 0DJ08ZZ Inspection of Upper Intestinal Tract, Via Natural or Artificial Opening Endoscopic (ICD-10-PCS; 2022-06-15)
PROC: B32T1ZZ Computerized Tomography (CT Scan) of Left Pulmonary Artery using Low Osmolar Contrast (ICD-10-PCS; principal; 2022-06-21)
PROC: B3201ZZ Computerized Tomography (CT Scan) of Thoracic Aorta using Low Osmolar Contrast (ICD-10-PCS; 2022-06-21)
PROC: B32S1ZZ Computerized Tomography (CT Scan) of Right Pulmonary Artery using Low Osmolar Contrast (ICD-10-PCS; 2022-06-21)
DX: A41.9 Sepsis, unspecified organism (principal); J96.00 Acute respiratory failure, unspecified whether with hypoxia or hypercapnia; N17.0 Acute kidney failure with tubular necrosis; G93.41 Metabolic encephalopathy; D68.9 Coagulation defect, unspecified; N18.6 End stage renal disease; K92.2 Gastrointestinal hemorrhage, unspecified; D69.6 Thrombocytopenia, unspecified; Z66 Do not resuscitate; E87.20 Acidosis, unspecified; R18.8 Other ascites; D62 Acute posthemorrhagic anemia; E87.1 Hypo-osmolality and hyponatremia; I50.9 Heart failure, unspecified; Z20.822 Contact with and (suspected) exposure to COVID-19; E88.09 Other disorders of plasma-protein metabolism, not elsewhere classified; F10.20 Alcohol dependence, uncomplicated; K21.9 Gastro-esophageal reflux disease without esophagitis; L03.116 Cellulitis of left lower limb; L03.115 Cellulitis of right lower limb; F15.90 Other stimulant use, unspecified, uncomplicated; K74.60 Unspecified cirrhosis of liver; Z51.5 Encounter for palliative care; Z86.14 Personal history of Methicillin resistant Staphylococcus aureus infection; Z87.442 Personal history of urinary calculi; Z88.8 Allergy status to other drugs, medicaments and biological substances
CPT/HCPCS: 36410; 36415; 36430; 36600; 43235; 43244; 43255; 70450; 70551; 71045; 71275; 74018; 76700; 76937; 80048; 80053; 80305; 80320; 81001; 81003; 82140; 82150; 82272; 82803; 82948; 83605; 83690; 83735; 83880; 84100; 84132; 84134; 84145; 84478; 84484; 85007; 85008; 85018; 85025; 85027; 85384; 85610; 85730; 86885; 86900; 86901; 86920; 87040; 87070; 87077; 87081; 87088; 87186; 87635; 92508; 92616; 93005; 93306; 94002; 94003; 94640; 94760; 96360; 97110; 97161; 97530; 99285; A4353; A4615; A4649; A5200; A6196; A6209; A6212; A6213; A6222; A6250; A6253; A6446; A6449; A7526; C1751; C9113; G0378; J0610; J0780; J1170; J1940; J2250; J2274; J2354; J2405; J2543; J2704; J2765; J3010; J3480; J3490; J7030; J7040; J7050; J7060; J7070; J7120; P9012; P9016; P9035; P9059; Q9967